=== PATIENT | female | born 1990 | race Caucasian/White ===

== ENCOUNTER → 2016-03-11 | Outpatient (CLI) | payer OTHER ==
[~2016-03-11] MED LIST: ETONMIS VAGRING; METF500T5 PO; SULF800T23 PO; VNTHFA/IN INH
--- NOTE | 2016-03-11 14:40 | DIAGNOSTIC IMAGING REPORT ---
LEFT ELBOW MIN 3 VIEWS CLINICAL HISTORY: Left elbow pain. Healing fracture. COMPARISON: Left elbow radiograph February 11, 2016 and February 19, 2016. FINDINGS: Alignment of left elbow is anatomic. A transverse band of sclerosis within the proximal left radius is consistent with a healing fracture. No additional fractures are present. There is no left elbow joint effusion. IMPRESSION: Healing nondisplaced proximal left radial fracture. No joint effusion. Electronically signed by: Eugene Morgan M.D. 03/11/2016 2:38 PM Dictated Date/Time: 03/11/2016 2:37 PM
== END | disposition home or self-care (01) ==
LOC: C.RDSM 17:09
PROVIDERS: ATTEND Physical Medicine & Rehabilitation Sports Medicine
DX: S52.102D Unspecified fracture of upper end of left radius, subsequent encounter for closed fracture with routine healing (principal); X58.XXXD Exposure to other specified factors, subsequent encounter

== ENCOUNTER → 2016-04-03 | Outpatient (CLI) | payer OTHER ==
--- NOTE | 2016-04-03 15:56 | DIAGNOSTIC IMAGING REPORT ---
LEFT ELBOW 3 VIEWS CLINICAL HISTORY: Left elbow pain. Healing fracture. FINDINGS: 3 views of the left elbow are compared to study dated 03/11/2016. The skeletal structures are well mineralized. There is only a faint band of residual sclerosis in the radial head at the site of the known healing fracture. No acute fracture is seen. No joint effusion is identified. The joint spaces are preserved. The overlying soft tissues are within normal limits. IMPRESSION: There is only faint band of residual sclerosis in the radial head at the site of the healing fracture. Electronically signed by: Freddie Coley M.D. 04/03/2016 3:55 PM Dictated Date/Time: 04/03/2016 3:53 PM
== END | disposition home or self-care (01) ==
LOC: C.RDSM 14:55
PROVIDERS: ATTEND Physical Medicine & Rehabilitation Sports Medicine
DX: S52.122D Displaced fracture of head of left radius, subsequent encounter for closed fracture with routine healing (principal); X58.XXXD Exposure to other specified factors, subsequent encounter

== ENCOUNTER → 2016-10-01 | Outpatient (CLI) | payer OTHER ==
--- NOTE | 2016-10-01 10:25 | DIAGNOSTIC IMAGING REPORT ---
LEFT ELBOW 3 VIEWS HISTORY: LEFT RADIAL HEAD FX COMPARISON: None. FINDINGS: The left radial head fracture seen on the prior study is completely healed. No acute fractures. No dislocation. No joint effusion. Soft tissues are unremarkable. No radiopaque foreign bodies. IMPRESSION: The left radial head fracture is completely healed. Electronically signed by: Carlito Campuzano M.D. 10/01/2016 10:24 AM Dictated Date/Time: 10/01/2016 10:21 AM
== END | disposition home or self-care (01) ==
LOC: C.RDSM 12:12
PROVIDERS: ATTEND Physician Assistant
DX: S52.122D Displaced fracture of head of left radius, subsequent encounter for closed fracture with routine healing (principal); X58.XXXD Exposure to other specified factors, subsequent encounter

== ENCOUNTER 2016-10-07 02:04 | Emergency (ER) | payer OTHER ==
[~2016-10-07] VITALS: Ht 170.2 cm; Wt 97.0 kg
[2016-10-07 02:07] VITALS: TEMP 36.9; O2SAT 98; Ht 170.2 cm; Wt 97.0 kg
[2016-10-07] MEDS ORDERED: LORAZEPAM 2 MG/ML 1 ML VIAL IV STA (02:27)
[2016-10-07] MEDS ORDERED: SODIUM CHLORIDE 0.9% 1000ML 1,000 ML IV ONE (02:30)
[2016-10-07] MEDS ORDERED: METF500T5 PO (02:32)
[2016-10-07] MEDS ORDERED: ETONMIS VAGRING (02:32)
[2016-10-07] MEDS ORDERED: VNTHFA/IN INH (02:32)
[2016-10-07 02:38] LABS: BASO % 0.3 %; BASO ABS # 0.04 K/uL (0-0.2); COMPLETE YES; EOS % 1.8 %; HEMATOCRIT 45.3 % (37-47); IG% 0.2 %; LYMPH % 32.3 %; LYMPH ABS # 4.14 K/uL (1.2-3.4); MEAN CELL VOLUME 87.8 fL (80-100); MEAN CORPUSCULAR HEMOGLOBIN 31.2 pg (25-34); MEAN CORPUSCULAR HGB CONC 35.5 g/dl (32-36); MEAN PLATELET VOLUME 11.1 fL (7.4-10.4); MONO % 5.9 %; NEUT % 59.5 %; PLATELET COUNT 251 K/uL (130-400); RED BLOOD COUNT 5.16 M/uL (4.2-5.4); WHITE BLOOD COUNT 12.81 K/uL (4.8-10.8)
[2016-10-07 02:44] LABS: POINT OF CARE TROPONIN I < 0.030 ng/ml (0-0.045)
[2016-10-07 02:51] LABS: BUN/CREATININE RATIO 17.1 (10-20); CALCIUM 9.4 mg/dl (8.5-10.1); CREATININE 0.83 mg/dl (0.60-1.20); MAGNESIUM 1.9 mg/dl (1.8-2.4); POTASSIUM 3.7 mmol/L (3.5-5.1)
[2016-10-07 02:54] LABS: ALB/GLOB RATIO 0.8 (0.9-2)
[2016-10-07 03:35] LABS: MANUAL MICROSCOPIC REQUIRED? NO; REVIEW REQ? NO; URINE APPEARANCE CLEAR (CLEAR); URINE BILIRUBIN NEG (NEG); URINE COLOR YELLOW; URINE EPITHELIAL CELL AUTO >30 /lpf (0-5); URINE NITRITE NEG (NEG); URINE SPECIFIC GRAVITY 1.022 (1.000-1.030); UROBILINOGEN NEG (NEG); ZZUR CULT IF INDIC CLEAN CATCH YES
[2016-10-07] MEDS ORDERED: SULF800T23 PO (04:07)
[2016-10-07 04:13] VITALS: BP 134/81; PULSE 88; O2SAT 97
--- NOTE | 2016-10-07 06:34 | EMERGENCY ROOM VISIT NOTE ---
History First contact with patient: 02:12 Chief Complaint: CHEST PAIN Stated Complaint: RIGHT SIDED CHEST PAIN Nursing Triage Summary: Patient reports right sided chest pain all day today but tonight she laid down in bed and pain got worse and was difficult to take a deep breath. Reports some shortness of breath. Hx SVT. Patient just started Nuva Ring one month ago. History of Present Illness The patient is a 26 year old female who presents to the Emergency Room with complaints of right-sided chest pain that has been ongoing for the past day. The patient states that she was getting ready for bed tonight when her discomfort worsened. She does have some difficulty with taking a deep breath and mild shortness of breath. The patient reports a history of SVT, but she has not been experiencing palpitations. She is on the NuvaRing which she began about one month ago. She may have some recent travel history, and reports no family history of DVT or PE. The patient has not had fever or chills. No coughing. She has not taken anything [id number] for her symptoms and rates her discomfort a 5/10. Review of Systems More than 10 systems were reviewed and otherwise negative with the exception of history of present illness. Past Medical/Surgical History Medical Problems: (1) GDM, class A2 (2) Right ovarian cyst (3) Term Surgical Problems: (1) S/P removal of right ovary Family History Patient reports no known family medical history. Social History Smoking Status: Never Smoker Alcohol Use: occasionally Drug Use: none Marital Status: Housing Status: lives with significant other Occupation Status: employed Current/Historical Medications Scheduled Etonogestrel/Ethinyl Estradiol (Nuvaring), 1 EA VAGRING MONTHLY Metformin Hcl Er (Glucophage Er), 500 MG PO BID Sulfa/Trimethoprim (Bactrim Ds 800MG/160MG), 1 TAB PO BID Scheduled PRN Albuterol Hfa (Ventolin Hfa), 2 PUFFS INH Q6H PRN for SOB/Wheezing Physical Exam Vital Signs Date Time Temp Pulse Resp B/P (MAP) Pulse Ox O2 Delivery O2 Flow Rate FiO2 10/07/16 04:13 88 18 134/81 97 10/07/16 03:23 98 20 139/78 97 Room Air 10/07/16 02:30 85 18 137/81 97 Room Air 10/07/16 02:25 91 10/07/16 02:24 98 Room Air 10/07/16 02:07 36.9 95 18 158/114 98 Room Air 10/07/16 02:07 98 Room Air Pain Rating (0-10): 3.0 Physical Exam VITALS: Vitals are noted on the nurse's note and reviewed by myself. Vital signs stable. GENERAL: Well-developed, well-nourished, white female who appears mildly anxious but is cooperative with the examination. EARS: External ear normal. External auditory canals clear, tympanic membranes pearly brink without erythema or effusion bilaterally. EYES: Pupils equal round and reactive to light and accommodation. Conjunctivae without injection, sclerae without icterus. Extraocular movements intact. NECK: Supple without nuchal rigidity. No lymphadenopathy. No thyromegaly. Cervical spine is nontender. HEART: Regular rate and rhythm without murmurs gallops or rubs. LUNGS: Clear to auscultation bilaterally without wheezes, rales or rhonchi. No retractions or accessory muscle use. ABDOMEN: Positive normal bowel sounds x 4. Soft with mild epigastric tenderness on palpation. No rebound or guarding. No CVA tenderness. MUSCULOSKELETAL: No muscle atrophy, erythema, or edema noted. Full range of motion without joint tenderness in all extremities. No reproducible chest wall tenderness. Medical Decision & Procedures ER Provider Diagnostic Interpretation: Preliminary Findings Only See Final Report For Complete Findings US RUQ: Hepatic steatosis. Otherwise, the liver is unremarkable. Nonobstructing calculus within the right kidney. No hydronephrosis. Gallbladder is unremarkable. Common bile duct is within normal limits measuring 2.8 mm. Laboratory Results 10/07/16 02:17 Red Blood Count 5.16, Mean Corpuscular Volume 87.8, Mean Corpuscular Hemoglobin 31.2, Mean Corpuscular Hemoglobin Concent 35.5, Mean Platelet Volume 11.1, Neutrophils (%) (Auto) 59.5, Lymphocytes (%) (Auto) 32.3, Monocytes (%) (Auto) 5.9, Eosinophils (%) (Auto) 1.8, Basophils (%) (Auto) 0.3, Neutrophils # (Auto) 7.62, Lymphocytes # (Auto) 4.14, Monocytes # (Auto) 0.76, Eosinophils # (Auto) 0.23, Basophils # (Auto) 0.04 10/07/16 02:17 Test 10/07/16 02:17 10/07/16 02:24 10/07/16 03:22 White Blood Count 12.81 K/uL (4.8-10.8) Red Blood Count 5.16 M/uL (4.2-5.4) Hemoglobin 16.1 g/dL (12.0-16.0) Hematocrit 45.3 % (37-47) Mean Corpuscular Volume 87.8 fL (80-100) Mean Corpuscular Hemoglobin 31.2 pg (25-34) Mean Corpuscular Hemoglobin Concent 35.5 g/dl (32-36) Platelet Count 251 K/uL (130-400) Mean Platelet Volume 11.1 fL (7.4-10.4) Neutrophils (%) (Auto) 59.5 % Lymphocytes (%) (Auto) 32.3 % Monocytes (%) (Auto) 5.9 % Eosinophils (%) (Auto) 1.8 % Basophils (%) (Auto) 0.3 % Neutrophils # (Auto) 7.62 K/uL (1.4-6.5) Lymphocytes # (Auto) 4.14 K/uL (1.2-3.4) Monocytes # (Auto) 0.76 K/uL (0.11-0.59) Eosinophils # (Auto) 0.23 K/uL (0-0.5) Basophils # (Auto) 0.04 K/uL (0-0.2) RDW Standard Deviation 41.0 fL (36.4-46.3) RDW Coefficient of Variation 12.8 % (11.5-14.5) Immature Granulocyte % (Auto) 0.2 % Immature Granulocyte # (Auto) 0.02 K/uL (0.00-0.02) Anion Gap 7.0 mmol/L (3-11) Est Creatinine Clear Calc Drug Dose 120.7 ml/min Estimated GFR () 111.2 Estimated GFR (Non- 96.0 BUN/Creatinine Ratio 17.1 (10-20) Calcium Level 9.4 mg/dl (8.5-10.1) Magnesium Level 1.9 mg/dl (1.8-2.4) Total Bilirubin 0.2 mg/dl (0.2-1) Aspartate Amino Transf (AST/SGOT) 13 U/L (15-37) Alanine Aminotransferase (ALT/SGPT) 29 U/L (12-78) Alkaline Phosphatase 110 U/L (45-117) Total Protein 8.0 gm/dl (6.4-8.2) Albumin 3.6 gm/dl (3.4-5.0) Globulin 4.4 gm/dl (2.5-4.0) Albumin/Globulin Ratio 0.8 (0.9-2) Lipase 221 U/L (73-393) Bedside D-Dimer 161 ng/mlFEU (0-450) Bedside Troponin I < 0.030 ng/ml (0-0.045) Urine Color YELLOW Urine Appearance CLEAR (CLEAR) Urine pH 7.0 (4.5-7.5) Urine Specific [place] 1.022 (1.000-1.030) Urine Protein NEG (NEG) Urine Glucose (UA) NEG (NEG) Urine Ketones NEG (NEG) Urine Occult Blood NEG (NEG) Urine Nitrite NEG (NEG) Urine Bilirubin NEG (NEG) Urine Urobilinogen NEG (NEG) Urine Leukocyte Esterase MODERATE (NEG) Urine WBC (Auto) 10-30 /hpf (0-5) Urine RBC (Auto) 0-4 /hpf (0-4) Urine Hyaline Casts (Auto) 1-5 /lpf (0-5) Urine Epithelial Cells (Auto) >30 /lpf (0-5) Urine Bacteria (Auto) 1+ (NEG) Urine Test NEG (NEG) Medications Administered Medications (Trade) Dose Ordered Sig/Eva Route Start Time Stop Time Status Last Admin Dose Admin Sodium Chloride 1,000 ml @ 999 mls/hr Q1H1M ONCE IV 10/07/16 02:30 10/07/16 03:30 DC 10/07/16 02:39 999 MLS/HR Lorazepam (Ativan Inj) 0.5 mg NOW STAT IV 10/07/16 02:27 10/07/16 02:29 DC 10/07/16 02:38 0.5 MG ED Course Physical exam and history were performed. Nursing notes, EMR, and Medication List were personally reviewed. Patient appears to have right-sided chest pain for the past day. The patient does not appear toxic on examination. IV access was established and labs were obtained. EKG was normal sinus rhythm at [address] elevation. Chest x- ray was performed and ultrasound was ordered. The patient was hydrated medicated as above. The patient was reevaluated multiple times throughout the course of her stay. Her blood work is as above and was reviewed. She does have a slightly elevated white blood cell count of 12,000. She is not with significant anemia, bandemia , or gross electrolyte imbalance. Lipase and transaminases are nondiagnostic. Troponin and d-dimer 1 are both negative. Chest x-ray was reviewed by myself and my attending without obvious acute process. Ultrasound was read by [facility] showing no acute process. The patient and I had a lengthy discussion regarding her workup and findings today. She does not appear to have an acute cardiopulmonary event. She felt significantly better after hydration and a small amount of Ativan. Her urine is possibly suggestive of a UTI, and she will be give a course of bactrim. She does admit that there may be a component of stress/anxiety to her symptoms. She does seem stable for discharge home, and understands the importance of following up with her primary care physician for further care and management. The patient was otherwise invited back to the ER with any new or worsening, or concerning symptoms. The chart was completed utilizing [employer] Speech Voice Recognition Software. Grammatical errors, random word insertions, pronoun errors, and incomplete sentences are an occasional consequence of this system due to software limitations, ambient noise, and hardware issues. Any formal questions or concerns about the content, text, or information contained within the body of this dictation should be directly addressed to the provider for clarification. . Medical Decision Differential diagnosis includes, but is not limited to: Myocardial infarction, dysrhythmia, pericarditis, pneumothorax, aortic aneurysm/dissection, DVT/PE, anxiety, GERD, PUD, electrolyte imbalance, thyroid disorder, pneumonia, bronchitis, pancreatitis, and others Blood Pressure Screening Blood pressure disposition: Elevated BP felt to be situational Impression Primary Impression: Right-sided chest pain Additional Impression: Urinary tract infection Departure Information Dispostion Home / Self-Care Condition GOOD Prescriptions Sulfa/Trimethoprim (Bactrim Ds 800MG/160MG) Tab 1 TAB PO BID for 7 Days, #14 TAB Prov: Javier Del Valle PA-C 10/07/16 Forms HOME CARE DOCUMENTATION FORM, Work Instructions, Additional Instructions: Patient was evaluated today in the emergency department for medical care. Return to work on 10/08/2016. Please excuse. IMPORTANT VISIT INFORMATION Patient Instructions My [facility] Additional Instructions You were seen and evaluated today on an emergency basis only. This is not a substitute for, or an effort to provide, complete comprehensive medical care. It is not possible to recognize and treat all injuries or illnesses in a single emergency department visit. For this reason it is recommended that you followup with your primary care physician next week for ongoing care and evaluation. For baseline pain relief you may alternate ibuprofen and acetaminophen every 4 hours for pain control. Take 600 mg ibuprofen (Advil) and then 4 hours later take 1000 mg acetaminophen (Tylenol). Do not take more than 3000 mg acetaminophen in a single day. Trimethoprim-Sulfamethoxazole(Bactrim DS): Take one pill twice daily for 7 days for your urine. All antibiotics can cause diarrhea. If this occurs and you feel worse or it does not resolve in 1-2 days follow up with your doctor or return to the Emergency Department as this could be signs of serious underlying problems. Any medication can cause an allergic reaction, stop the pills immediately and return to the ER for rash, hives, breathing difficulties, or swelling. You are welcome to return to the emergency department anytime with new, worsening, or concerning symptoms. Work Instructions Additional Work Instructions: Patient was evaluated today in the emergency department for medical care. Return to work on 10/08/2016. Please excuse. Problem Qualifiers
--- NOTE | 2016-10-07 06:41 | DIAGNOSTIC IMAGING REPORT ---
ABDOMINAL ULTRASOUND, RIGHT UPPER QUADRANT HISTORY: Epigastric and Right side CP. COMPARISON: CT of the abdomen and pelvis June 15, 2011. FINDINGS: Liver morphology is normal. There are no hepatic lesions. Hepatic echogenicity is mildly increased. There is no biliary ductal dilatation. No gallstones are identified. The pancreatic body is normal. The head and tail are partially obscured. Several small echogenic foci within the right renal sinus suggest calculi. These measure up to 2 mm. No right hydronephrosis is present. IMPRESSION: 1. No gallstones or biliary ductal dilatation. 2. Possible fatty infiltration of the liver. 3. Right-sided nephrolithiasis. No right hydronephrosis. Electronically signed by: Eugene Morgan M.D. 10/07/2016 6:40 AM Dictated Date/Time: 10/07/2016 6:38 AM
--- NOTE | 2016-10-07 07:09 | DIAGNOSTIC IMAGING REPORT ---
CHEST 2 VIEWS ROUTINE CLINICAL HISTORY: Right side CP dyspnea COMPARISON STUDY: 09/25/2011 FINDINGS: The bones soft tissues and hemidiaphragms are normal. The cardiomediastinal silhouette is normal. The lungs are clear. The pulmonary vasculature is normal. IMPRESSION: Negative chest. The above report was generated using voice recognition software. It may contain grammatical, syntax or spelling errors. Electronically signed by: Arias Florentino M.D. 10/07/2016 7:07 AM Dictated Date/Time: 10/07/2016 7:07 AM
== END 2016-10-07 04:16 | disposition home or self-care (01) ==
LOC: C.EDB 02:04
DX: R07.9 Chest pain, unspecified (principal); N39.0 Urinary tract infection, site not specified

== ENCOUNTER → 2016-10-13 | Outpatient (CLI) | payer OTHER | END | disposition home or self-care (01) | LOC: C.LABSPEC 16:58 → C.PATHSPEC 17:43 | PROVIDERS: ATTEND Nurse Practitioner Adult Health | DX: N20.0 Calculus of kidney (principal) ==

== ENCOUNTER → 2016-10-21 | Outpatient (CLI) | payer OTHER ==
[~2016-10-21] MED LIST changes: -SULF800T23 PO
--- NOTE | 2016-10-21 20:00 | DIAGNOSTIC IMAGING REPORT ---
KUB CLINICAL HISTORY: Nephrolithiasis. FINDINGS: 2 AP supine abdominal radiographs are compared to study dated 10/03/2014 and correlated with abdominal CT dated 06/15/2011. There is a nonobstructed abdominal bowel gas pattern. A 5 mm nonobstructing calculus projects over the lower pole of the right kidney. 2 punctate nonobstructing calculi are suggested in the left kidney. There is no radiographic evidence of ureteral stone. The bony structures appear intact. IMPRESSION: Small bilateral nonobstructing renal calculi as above. Electronically signed by: Freddie Coley M.D. 10/21/2016 7:59 PM Dictated Date/Time: 10/21/2016 7:58 PM
== END | disposition home or self-care (01) ==
LOC: C.RAD 19:15
PROVIDERS: ATTEND Nurse Practitioner Adult Health
DX: N20.0 Calculus of kidney (principal)

== ENCOUNTER → 2016-12-28 | Outpatient (CLI) | payer OTHER ==
[~2016-12-28] MED LIST changes: +GLC/500 PO; +HYDR-5688 PO; +MULT-506 PO
--- NOTE | 2016-12-28 18:00 | DIAGNOSTIC IMAGING REPORT ---
KUB CLINICAL HISTORY: N20.0 Nephrolithiasis nephrocalcinosis COMPARISON STUDY: 10/21/2016 FINDINGS: No change in a 5 mm calcification overlying lower pole right kidney. The left renal calcifications are suboptimally seen possibly due to overlying bowel content. Bowel pattern is nonobstructive. IMPRESSION: 1. Unchanged right renal lower pole calcification. 2. Punctate left renal calcifications are potentially present although partially obscured due to overlying bowel content. The above report was generated using voice recognition software. It may contain grammatical, syntax or spelling errors. Electronically signed by: Arias Florentino M.D. 12/28/2016 5:58 PM Dictated Date/Time: 12/28/2016 5:57 PM
[2016-12-28 18:01] LABS: BASO % 0.3 %; BASO ABS # 0.04 K/uL (0-0.2); COMPLETE YES; EOS % 1.4 %; HEMATOCRIT 44.5 % (37-47); IG% 0.2 %; LYMPH % 29.3 %; LYMPH ABS # 3.52 K/uL (1.2-3.4); MEAN CELL VOLUME 87.8 fL (80-100); MEAN CORPUSCULAR HEMOGLOBIN 30.4 pg (25-34); MEAN CORPUSCULAR HGB CONC 34.6 g/dl (32-36); MEAN PLATELET VOLUME 11.1 fL (7.4-10.4); NEUT % 60.8 %; PLATELET COUNT 240 K/uL (130-400); RED BLOOD COUNT 5.07 M/uL (4.2-5.4); WHITE BLOOD COUNT 12.01 K/uL (4.8-10.8)
[2016-12-28 18:08] LABS: URINE APPEARANCE CLEAR (CLEAR); URINE BILIRUBIN NEG (NEG); URINE COLOR YELLOW; URINE EPITHELIAL CELL AUTO >30 /lpf (0-5); URINE NITRITE NEG (NEG); URINE SPECIFIC GRAVITY 1.027 (1.000-1.030); UROBILINOGEN NEG (NEG)
[2016-12-28 18:09] LABS: MANUAL MICROSCOPIC REQUIRED? NO; REVIEW REQ? NO
[2016-12-28 18:31] LABS: BLOOD UREA NITROGEN 13 mg/dl (7-18); BUN/CREATININE RATIO 16.8 (10-20); CARBON DIOXIDE 26 mmol/L (21-32); CHLORIDE 108 mmol/L (98-107); CREATININE 0.76 mg/dl (0.60-1.20); POTASSIUM 3.6 mmol/L (3.5-5.1); SODIUM 140 mmol/L (136-145)
== END | disposition home or self-care (01) ==
LOC: C.LAB 17:13
PROVIDERS: ATTEND Nurse Practitioner Adult Health
DX: N20.0 Calculus of kidney (principal)

== ENCOUNTER → 2017-01-11 | Outpatient (CLI) | payer OTHER ==
[~2017-01-11] MED LIST changes: -METF500T5 PO
--- NOTE | 2017-01-11 15:18 | DIAGNOSTIC IMAGING REPORT ---
KUB HISTORY: Follow-up study in a patient with nephrolithiasis. Status post lithotripsy N20.0 NephrolithiasisTO BE DONE THE NIGHT BEFORE OR MORNING OF P COMPARISON: KUB 12/28/2016. FINDINGS: The bowel gas pattern is non-obstructive. There is no organomegaly. Right kidney is obscured by colonic stool. The previously noted calculus in the region of the right kidney however is again seen, 3 mm. No ureteral calculi identified. No definite left-sided nephrolithiasis. No pneumoperitoneum or pneumatosis. No fracture. IMPRESSION: Right renal shadow obscured by bowel gas. 3 mm calculus projects over the right kidney. No ureteral calculi. Electronically signed by: Rock Oneill M.D. 01/11/2017 3:17 PM Dictated Date/Time: 01/11/2017 3:04 PM
== END | disposition home or self-care (01) ==
LOC: C.RAD 14:38
PROVIDERS: ATTEND Nurse Practitioner Adult Health
DX: N20.0 Calculus of kidney (principal)

== ENCOUNTER 2017-03-09 22:38 | Emergency (ER) | payer OTHER ==
[~2017-03-09] VITALS: Ht 170.2 cm; Wt 96.0 kg
[2017-03-09 22:45] VITALS: TEMP 36.5; Ht 170.2 cm; Wt 96.0 kg
[2017-03-09] MEDS ORDERED: SODIUM CHLORIDE 0.9% 1000ML 1,000 ML IV STA (23:03)
[2017-03-09 23:10] VITALS: O2SAT 98
[2017-03-09 23:52] LABS: BASO % 0.3 %; BASO ABS # 0.03 K/uL (0-0.2); EOS % 1.9 %; HEMATOCRIT 44.4 % (37-47); HEMOGLOBIN 15.4 g/dL (12.0-16.0); IG# 0.02 K/uL (0.00-0.02); LYMPH % 33.9 %; LYMPH ABS # 3.51 K/uL (1.2-3.4); MEAN CELL VOLUME 87.7 fL (80-100); MEAN CORPUSCULAR HEMOGLOBIN 30.4 pg (25-34); MEAN CORPUSCULAR HGB CONC 34.7 g/dl (32-36); MEAN PLATELET VOLUME 11.1 fL (7.4-10.4); MONO % 8.4 %; MONO ABS # 0.87 K/uL (0.11-0.59); NEUT % 55.3 %; NEUT ABS # 5.73 K/uL (1.4-6.5); PLATELET COUNT 231 K/uL (130-400); RED CELL DISTRIBUTION WIDTH CV 12.8 % (11.5-14.5); RED CELL DISTRIBUTION WIDTH SD 40.9 fL (36.4-46.3); WHITE BLOOD COUNT 10.36 K/uL (4.8-10.8)
[2017-03-10 00:15] LABS: ALBUMIN 3.7 gm/dl (3.4-5.0); ALT/SGPT 37 U/L (12-78); AST/SGOT 18 U/L (15-37); BLOOD UREA NITROGEN 13 mg/dl (7-18); CALCIUM 8.9 mg/dl (8.5-10.1); CARBON DIOXIDE 26 mmol/L (21-32); CREATININE 0.82 mg/dl (0.60-1.20); GLUCOSE 89 mg/dl (70-99); POTASSIUM 3.7 mmol/L (3.5-5.1); SODIUM 139 mmol/L (136-145)
[2017-03-10 00:26] LABS: ALKALINE PHOSPHATASE 114 U/L (45-117); TOTAL PROTEIN 7.7 gm/dl (6.4-8.2)
--- NOTE | 2017-03-10 00:56 | EMERGENCY ROOM VISIT NOTE ---
History First contact with patient: 22:51 Chief Complaint: TACHYCARDIA Stated Complaint: SVT Nursing Triage Summary: pt hx SVT, pulse at 186 with initial symptom onset. Pt states sitting down and felt "heart beating in my throat," dizzy nauseated, near syncope. Pt states onset of symptoms within 5 minutes of alerting staff. History of Present Illness The patient is a 26 year old female who presents to the Emergency Room with complaints of tachycardia that lasted 5-10 minutes and now has resolved. Patient has a history of SVT. She tried vagal maneuvers and finally resolved the tachycardia. Her heart rate was up to 185. This is taken by our nurse here. 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 She follows with Dr. Gomez. Last episode was a couple months ago when she had an asthma flare. She quit taking her beta diamond a few years ago as she did not like the way made her feel fatigued. Patient states she feels lightheaded and shaky. Patient denies chest pain, dyspnea, fever, chills, recent illness, excessive caffeine use, supplements or any other medications taken today or any other medical complaints. Review of Systems See HPI for pertinent positives & negatives. A total of 10 systems reviewed and were otherwise negative. Past Medical/Surgical History Medical Problems: (1) GDM, class A2 (2) Right ovarian cyst (3) Term Surgical Problems: (1) S/P removal of right ovary Family History Patient reports no known family medical history. Social History Smoking Status: Never Smoker Smokeless Tobacco Use: No Alcohol Use: occasionally Drug Use: none Marital Status: Housing Status: lives with significant other Occupation Status: employed Current/Historical Medications Scheduled Etonogestrel/Ethinyl Estradiol (Nuvaring), 1 EA VAGRING MONTHLY Multivitamin (Multivitamin), 1 TAB PO QAM Scheduled PRN Albuterol Hfa (Ventolin Hfa), 2 PUFFS INH Q6H PRN for SOB/Wheezing Physical Exam Vital Signs Date Time Temp Pulse Resp B/P (MAP) Pulse Ox O2 Delivery O2 Flow Rate FiO2 03/09/17 23:10 98 Room Air 03/09/17 22:48 97 03/09/17 22:47 99 Room Air 03/09/17 22:47 98 Room Air 03/09/17 22:45 36.5 111 15 150/102 99 Room Air Physical Exam VITALS: Vitals are noted on the nurse's note and reviewed by myself. Vital signs hypertensive GENERAL: Pleasant female anxious-appearing, in no acute distress, nondiaphoretic , well-developed well-nourished. SKIN: The skin was without rashes, erythema, edema, or bruising. There is no tenting of the skin. Capillary reflex less than 2 seconds. HEAD: Normocephalic atraumatic. EARS: External auditory canals clear EYES: Pupils equal round and reactive to light and accommodation. Conjunctivae without injection, sclerae without icterus. Extraocular movements intact. NOSE: Patent, turbinates without inflammation or discharge. MOUTH: Mucous membranes moist. Pharynx without erythema or exudate. Uvula midline. Airway patent. Tongue does not deviate. NECK: Supple without nuchal rigidity. No lymphadenopathy. No thyromegaly. Cervical spine is nontender. No JVD. HEART: Regular rate and rhythm without murmurs gallops or rubs. LUNGS: Clear to auscultation bilaterally without wheezes, rales or rhonchi. No dullness to percussion. No retractions or accessory muscle use. ABDOMEN: Positive bowel sounds x 4. Normal tympanic percussion. Soft, nontender, without masses or organomegaly. Cruz sign negative. No guarding or rebound tenderness. MUSCULOSKELETAL: No muscle atrophy, erythema, or edema noted. NEURO: Patient was alert and oriented to person place and time. Normal sensation to light and sharp touch. No focal neurological deficits. Medical Decision & Procedures Laboratory Results 03/09/17 23:39 Red Blood Count 5.06, Mean Corpuscular Volume 87.7, Mean Corpuscular Hemoglobin 30.4, Mean Corpuscular Hemoglobin Concent 34.7, Mean Platelet Volume 11.1, Neutrophils (%) (Auto) 55.3, Lymphocytes (%) (Auto) 33.9, Monocytes (%) (Auto) 8.4, Eosinophils (%) (Auto) 1.9, Basophils (%) (Auto) 0.3, Neutrophils # (Auto) 5.73, Lymphocytes # (Auto) 3.51, Monocytes # (Auto) 0.87, Eosinophils # (Auto) 0.20, Basophils # (Auto) 0.03 03/09/17 23:39 Test 03/09/17 23:39 White Blood Count 10.36 K/uL (4.8-10.8) Red Blood Count 5.06 M/uL (4.2-5.4) Hemoglobin 15.4 g/dL (12.0-16.0) Hematocrit 44.4 % (37-47) Mean Corpuscular Volume 87.7 fL (80-100) Mean Corpuscular Hemoglobin 30.4 pg (25-34) Mean Corpuscular Hemoglobin Concent 34.7 g/dl (32-36) Platelet Count 231 K/uL (130-400) Mean Platelet Volume 11.1 fL (7.4-10.4) Neutrophils (%) (Auto) 55.3 % Lymphocytes (%) (Auto) 33.9 % Monocytes (%) (Auto) 8.4 % Eosinophils (%) (Auto) 1.9 % Basophils (%) (Auto) 0.3 % Neutrophils # (Auto) 5.73 K/uL (1.4-6.5) Lymphocytes # (Auto) 3.51 K/uL (1.2-3.4) Monocytes # (Auto) 0.87 K/uL (0.11-0.59) Eosinophils # (Auto) 0.20 K/uL (0-0.5) Basophils # (Auto) 0.03 K/uL (0-0.2) RDW Standard Deviation 40.9 fL (36.4-46.3) RDW Coefficient of Variation 12.8 % (11.5-14.5) Immature Granulocyte % (Auto) 0.2 % Immature Granulocyte # (Auto) 0.02 K/uL (0.00-0.02) Anion Gap 7.0 mmol/L (3-11) Est Creatinine Clear Calc Drug Dose 121.5 ml/min Estimated GFR () 112.9 Estimated GFR (Non- 97.4 BUN/Creatinine Ratio 15.3 (10-20) Calcium Level 8.9 mg/dl (8.5-10.1) Magnesium Level 2.1 mg/dl (1.8-2.4) Total Bilirubin 0.3 mg/dl (0.2-1) Direct Bilirubin < 0.1 mg/dl (0-0.2) Aspartate Amino Transf (AST/SGOT) 18 U/L (15-37) Alanine Aminotransferase (ALT/SGPT) 37 U/L (12-78) Alkaline Phosphatase 114 U/L (45-117) Total Protein 7.7 gm/dl (6.4-8.2) Albumin 3.7 gm/dl (3.4-5.0) Thyroid Stimulating Hormone (TSH) 2.280 uIu/ml (0.300-4.500) Human Chorionic Gonadotropin, Qual NEG (NEG) Medications Administered Medications (Trade) Dose Ordered Sig/Eva Route Start Time Stop Time Status Last Admin Dose Admin Sodium Chloride 1,000 ml @ 999 mls/hr Q1H1M STAT IV 03/09/17 23:03 03/10/17 00:03 DC 03/09/17 23:21 999 MLS/HR ED Course Prior records/ancillary studies reviewed. Triage Nursing notes reviewed. The patient's history was concerning for palpitations. Differential diagnosis: Etiologies such as premature contractions, electrolyte abnormality, cardiac dysrhythmia, thyroid dysfunction, pulmonary embolism, infection, gastrointestinal, as well as others were entertained. Physical examination: Benign as above. ER treatment provided: IV fluids On reassessment the patient felt better. Diagnostic interpretation by me: Cardiac monitoring revealed no dysrhythmia. The electrocardiogram was negative for pathologic change. Normal sinus, normal intervals, no acute ST-T wave changes. Impression sinus tachycardia interpreted by myself The labs revealed euthyroid, stable H&H This appears to be consistent with SVT that broke on her own. Patient has a history of this. No new medications. No stimulants. She is well-appearing. She is advised to follow-up with her controller operations and hr manager in a few days or here in the ER sooner for chest pain, difficulty breathing, tachycardia, worsening signs or symptoms or as needed. She was shown vagal maneuvers and advised to try this if her symptoms return in the future and if it does not break to return to the ER immediately. By the evaluation outlined above emergent etiologies such as electrolyte abnormality, cardiac dysrhythmia, thyroid dysfunction, pulmonary embolism, infection, as well as others were deemed relatively unlikely. The pt informed about the findings as listed above. All questions were answered and pleased with the treatment. Return instructions were outlined and the patient was discharged in stable condition. Case reviewed with my attending Referral: The patient was referred back to their primary care physician/etiology for follow-up in 2 to 3 days for a recheck of the current condition The chart was completed utilizing Dragon Speech voice recognition software. Grammatical errors, random word insertions, pronoun errors, and incomplete sentences are an occassional consequence of this system due to software limitations, ambient noise, and hardware issues. Any formal questions or concerns about the content, text, or information contained within the body of this dictation should be directly addressed to the physician hair or beauty salon assistant for clarification. Medical Decision As above Medication Reconcilliation Current Medication List: was personally reviewed by me Blood Pressure Screening Patient's blood pressure: Elevated blood pressure Blood pressure disposition: Elevated BP felt to be situational Impression Primary Impression: SVT (supraventricular tachycardia) Departure Information Dispostion Home / Self-Care Condition GOOD Referrals Jennifer Tsai DO (PCP) Patient Instructions My [facility] Additional Instructions Try vagal maneuvers in the future if your SVT returns. You can try blowing through a straw or lifting up her legs and bearing down as shown in the ER. You can also continue to try coughing. Rest and drink plenty of fluids as tolerated. Continue current medications. Return to the ER immediately for worsening or persistent tachycardia, abdominal pain, vomiting, fevers, chest pains, difficulty breathing, worsening of your condition, or as needed. Follow up with your primary physician and/or controller operations and hr manager in 2-3 days for a recheck of your current condition.
[2017-03-10] MEDS ORDERED: ATIVAN 1MG HOMEPACK PO ONE (01:00)
[2017-03-10 01:01] VITALS: BP 143/91
[2017-03-10 01:08] VITALS: PULSE 99; O2SAT 97
--- NOTE | 2017-03-10 02:03 | EMERGENCY ROOM VISIT NOTE ---
ED Visit Note First contact with patient: 22:51 I have personally evaluated this patient examined her and reviewed the pertinent labs and data. I have discussed the case with Michelle Beckett, the physician assistant store manager trainee and agree with the plan. Please refer to the PA note. This patient works here and presented after she had a fast heart ra.te she was very fast initially but by the time she got back to triage did slow down after doing vagal maneuvers. She apparently has a history of PSVT that it occurs with stress she says.. She gets about 10 times a year upon my evaluation she is resting comfortably in a normal sinus rhythm her lab work was unremarkable. I encouraged her to follow up with her lithograph press feeder she may ultimately need to be seen by maintenance planner this persists typically she breaks out of it btu has never required any adenosine or medications. She is feeling better and will be discharged to home.
== END 2017-03-10 01:12 | disposition home or self-care (01) ==
LOC: EDBD 22:38 → C.EDA 22:39
DX: I47.1 Supraventricular tachycardia (principal); Z86.32 Personal history of gestational diabetes; Z90.721 Acquired absence of ovaries, unilateral

== ENCOUNTER 2017-03-23 00:21 | Emergency (ER) | payer OTHER ==
[~2017-03-23] VITALS: Ht 170.2 cm; Wt 96.2 kg
[~2017-03-23 00:21] MED LIST changes: -GLC/500 PO; -HYDR-5688 PO
[2017-03-23 00:25] VITALS: TEMP 36.8; Ht 170.2 cm; Wt 96.2 kg
[2017-03-23] MEDS ORDERED: KETOROLAC TROMETHAMINE 30 MG/ML VIAL IV STA (00:37)
[2017-03-23] MEDS ORDERED: LXP10 PO (00:40)
--- NOTE | 2017-03-23 00:48 | EMERGENCY ROOM VISIT NOTE ---
History Report prepared by Inderjit: Crista Rowe Under the Supervision of: Dr. Heather Keane M.D. 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 She states that her hand got numb and then all of a sudden, she felt a "sharp pain in the center of her chest," however the pain has alleviated and is currently mild. Associated symptoms include nausea and SOB. She denies any chance of , vomiting, and flu symptoms but notes she had a slight asthma attack. The patient states that her heart rate has felt very fast the past couple of days. 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 A total of 10 systems reviewed and were otherwise negative. Past Medical & Surgical Medical Problems: (1) GDM, class A2 (2) Right ovarian cyst (3) Term Surgical Problems: (1) S/P removal of right ovary Family History Patient reports no known family medical history. Social History Smoking Status: Never Smoker Alcohol Use: occasionally Drug Use: none Marital Status: Housing Status: lives with significant other Occupation Status: employed Current/Historical Medications Scheduled Escitalopram Oxalate (Escitalopram Oxalate), 10 MG PO DAILY Etonogestrel/Ethinyl Estradiol (Nuvaring), 1 EA VAGRING MONTHLY Multivitamin (Multivitamin), 1 TAB PO QAM Scheduled PRN Albuterol Hfa (Ventolin Hfa), 2 PUFFS INH Q6H PRN for SOB/Wheezing Allergies Coded Allergies: Adhesives (Verified Allergy, Mild, HIVES, 03/23/17) Kiwi (Verified Allergy, Mild, tongue feels thick and hairy, 03/23/17) NO KNOWN DRUG ALLERGIES (Verified Allergy, Unknown, ., 03/23/17) Physical Exam Vital Signs Date Time Temp Pulse Resp B/P (MAP) Pulse Ox O2 Delivery O2 Flow Rate FiO2 03/23/17 00:55 98 22 147/90 99 Room Air 03/23/17 00:42 92 03/23/17 00:42 100 Room Air 03/23/17 00:25 36.8 101 18 160/86 99 Room Air Physical Exam Vital signs reviewed. General: Well-appearing female, in no significant distress. Anxious appearing HEENT: No scleral icterus, PERRLA, neck supple. Atraumatic. Cardiovascular: Regular rate, Slightly tachycardic, no extra sounds. Pulmonary: Clear to auscultation bilaterally, normal work of breathing. Abdomen: Soft, nontender, nondistended, positive bowel sounds. Musculoskeletal: Atraumatic, no peripheral edema. Neurologic: Patient awake alert and oriented x 3, full strength in all 4 extremities. Cranial nerves 2 through 12 grossly intact. Skin: Warm, dry, no rash Medical Decision & Procedures ER Provider Diagnostic Interpretation: Chest x-ray to my interpretation reveals no evidence of focal lung consolidation or failure. Laboratory Results 03/23/17 00:40 Red Blood Count 5.00, Mean Corpuscular Volume 86.6, Mean Corpuscular Hemoglobin 30.4, Mean Corpuscular Hemoglobin Concent 35.1, Mean Platelet Volume 11.0, Neutrophils (%) (Auto) 57.3, Lymphocytes (%) (Auto) 34.4, Monocytes (%) (Auto) 6.4, Eosinophils (%) (Auto) 1.5, Basophils (%) (Auto) 0.2, Neutrophils # (Auto) 6.94, Lymphocytes # (Auto) 4.16, Monocytes # (Auto) 0.78, Eosinophils # (Auto) 0.18, Basophils # (Auto) 0.03 03/23/17 00:40 Test 03/23/17 00:40 03/23/17 00:46 White Blood Count 12.11 K/uL (4.8-10.8) Red Blood Count 5.00 M/uL (4.2-5.4) Hemoglobin 15.2 g/dL (12.0-16.0) Hematocrit 43.3 % (37-47) Mean Corpuscular Volume 86.6 fL (80-100) Mean Corpuscular Hemoglobin 30.4 pg (25-34) Mean Corpuscular Hemoglobin Concent 35.1 g/dl (32-36) Platelet Count 208 K/uL (130-400) Mean Platelet Volume 11.0 fL (7.4-10.4) Neutrophils (%) (Auto) 57.3 % Lymphocytes (%) (Auto) 34.4 % Monocytes (%) (Auto) 6.4 % Eosinophils (%) (Auto) 1.5 % Basophils (%) (Auto) 0.2 % Neutrophils # (Auto) 6.94 K/uL (1.4-6.5) Lymphocytes # (Auto) 4.16 K/uL (1.2-3.4) Monocytes # (Auto) 0.78 K/uL (0.11-0.59) Eosinophils # (Auto) 0.18 K/uL (0-0.5) Basophils # (Auto) 0.03 K/uL (0-0.2) RDW Standard Deviation 40.1 fL (36.4-46.3) RDW Coefficient of Variation 12.6 % (11.5-14.5) Immature Granulocyte % (Auto) 0.2 % Immature Granulocyte # (Auto) 0.02 K/uL (0.00-0.02) Anion Gap 9.0 mmol/L (3-11) Est Creatinine Clear Calc Drug Dose 127.9 ml/min Estimated GFR () 119.9 Estimated GFR (Non- 103.5 BUN/Creatinine Ratio 20.9 (10-20) Calcium Level 8.9 mg/dl (8.5-10.1) Bedside D-Dimer 234 ng/mlFEU (0-450) Bedside Troponin I < 0.030 ng/ml (0-0.045) Laboratory results per my review. Medications Administered Medications (Trade) Dose Ordered Sig/Eva Route Start Time Stop Time Status Last Admin Dose Admin Ketorolac Tromethamine (Toradol Inj) 30 mg NOW STAT IV 03/23/17 00:37 03/23/17 00:40 DC 03/23/17 00:51 30 MG ECG Indication: chest pain Rate (beats per minute): 97 Rhythm: normal sinus Findings: no acute ischemic change, no ectopy, other (sinus erythema, possible left atrial enlargement ) ED Course 0050: Past medical records reviewed. The patient was evaluated in room B2. A complete history and physical examination was performed. Medical Decision Differential diagnosis: Etiologies such as cardiac ischemia, aortic dissection, pulmonary embolism, pneumonia, pneumothorax, musculoskeletal, infections, pericarditis, myocarditis , esophageal rupture, gastrointestinal, as well as others were entertained. This patient was evaluated and appeared to be in no significant distress. IV access was obtained and laboratory work was drawn. The patient was placed on the prepared foods team leader and found to be in a normal sinus rhythm. She does occasionally, slightly tachycardic in a sinus rhythm. EKG reveals no evidence of acute ischemia or ectopy. Patient's troponin is negative, d-dimer is normal. Chest x-ray to my interpretation is clear. I suspect this is a noncardiac type chest pain. The patient was reassured and asked to use ibuprofen as needed for pain. She'll follow-up with her physician this week for reevaluation and return to the ER for worsening of symptoms or any medical concerns. Medication Reconcilliation Current Medication List: was personally reviewed by me Blood Pressure Screening Patient's blood pressure: Elevated blood pressure Blood pressure disposition: Elevated BP felt to be situational Impression Primary Impression: Non-cardiac chest pain Scribe Attestation The scribe's documentation has been prepared under my direction and personally reviewed by me in its entirety. I confirm that the note above accurately reflects all work, treatment, procedures, and medical decision making performed by me. Departure Information Referrals Jennifer Tsai DO (PCP) Patient Instructions My [facility]
[2017-03-23 00:51] LABS: BASO % 0.2 %; BASO ABS # 0.03 K/uL (0-0.2); EOS % 1.5 %; EOS ABS # 0.18 K/uL (0-0.5); HEMATOCRIT 43.3 % (37-47); HEMOGLOBIN 15.2 g/dL (12.0-16.0); IG# 0.02 K/uL (0.00-0.02); LYMPH % 34.4 %; LYMPH ABS # 4.16 K/uL (1.2-3.4); MEAN CELL VOLUME 86.6 fL (80-100); MEAN CORPUSCULAR HEMOGLOBIN 30.4 pg (25-34); MEAN CORPUSCULAR HGB CONC 35.1 g/dl (32-36); MONO % 6.4 %; MONO ABS # 0.78 K/uL (0.11-0.59); NEUT % 57.3 %; NEUT ABS # 6.94 K/uL (1.4-6.5); PLATELET COUNT 208 K/uL (130-400); RED CELL DISTRIBUTION WIDTH CV 12.6 % (11.5-14.5); RED CELL DISTRIBUTION WIDTH SD 40.1 fL (36.4-46.3); WHITE BLOOD COUNT 12.11 K/uL (4.8-10.8)
[2017-03-23 01:09] LABS: CALCIUM 8.9 mg/dl (8.5-10.1); CREATININE 0.78 mg/dl (0.60-1.20); POTASSIUM 3.3 mmol/L (3.5-5.1)
[2017-03-23 01:31] VITALS: BP 131/97; PULSE 80; O2SAT 99
--- NOTE | 2017-03-23 08:13 | DIAGNOSTIC IMAGING REPORT ---
CHEST ONE VIEW PORTABLE HISTORY: Atypical chest pain. Short of breath. COMPARISON: Chest 10/07/2016. FINDINGS: The lungs are clear. Cardiac silhouette is normal in size. No pleural effusions. No pneumothorax. IMPRESSION: No acute process. Electronically signed by: Carlito Campuzano M.D. 03/23/2017 8:12 AM Dictated Date/Time: 03/23/2017 8:11 AM
== END 2017-03-23 01:37 | disposition home or self-care (01) ==
LOC: C.EDB 00:22
DX: R07.89 Other chest pain (principal); Z97.5 Presence of (intrauterine) contraceptive device

== ENCOUNTER → 2017-04-28 | Day surgery (SDC) | payer OTHER ==
[2017-04-08 08:51] VITALS: BMI 33.0
[~2017-04-28] VITALS: Ht 170.2 cm; Wt 95.0 kg
[~2017-04-28] MED LIST changes: +ACETAMINOPHEN 325 MG TAB PO PRN; +CHOL1000 PO; +FENTANYL CITRATE INJ 50 MCG/1 ML 2 ML VIAL ONE; +ISOPROTERENOL IV ONE; +LIDOCAINE HCL 1% 20 ML VIAL ONE; +LXP10 PO; +MIDAZOLAM HCL 5 MG/ML 1 ML VIAL ONE
[2017-04-28 12:18] VITALS: BP 121/86; PULSE 80; TEMP 36.5; O2SAT 98; Ht 170.2 cm; Wt 95.0 kg
--- NOTE | 2017-04-28 13:56 | History & Physical Bridge Note ---
H&P Re-Evaluation Bridge Note: I have examined the patient, reviewed the History & Physical and in the interval since the performance of the History & Physical I have noted the following changes of clinical significance: No changes noted
--- NOTE | 2017-04-28 13:56 | Pre Sedation Assessment ---
Pre Sedation Assessment General Date of Sedation: Apr 28, 2017. Vital Signs Past 12 Hours Date Time Temp Pulse Resp B/P (MAP) Pulse Ox O2 Delivery O2 Flow Rate FiO2 04/28/17 12:18 36.5 80 18 121/86 (98) 98 Room Air Review Cardiovascular: regular rate, rhythm Lungs: lungs clear Pre-Sedation Airway Assessment Smoking Status: Never Smoker Hx of Sleep Apnea: No Short Thick Neck: No Thyro-mental Distance: > 3 Finger Breadths Oral Cavity: WNL Mallampati Classification: Class I ASA Classification: Class I NPO Status Date of Last Intake of Fluids: Apr 27, 2017 Date of Last Intake of Solids: Apr 27, 2017 Procedure Planning Contraindications for Sedation: None Current Medications Reviewed: Yes Notes The planned sedation has been discussed with the patient. Informed Consent was obtained. I have identified the patient, determined the appropriateness of sedation and have assessed the patient immediately prior to the procedure. All medicine(s) and interventions are by my order.
--- NOTE | 2017-04-28 16:35 | Post Sedation Assessment ---
Post Sedation Assessment General Date of Sedation Apr 28, 2017. Vital Signs: Vital Signs Past 12 Hours Date Time Temp Pulse Resp B/P (MAP) Pulse Ox O2 Delivery O2 Flow Rate FiO2 04/28/17 16:25 99 16 133/84 (100) 97 Room Air 04/28/17 16:20 103 16 138/91 (107) 96 Room Air 04/28/17 16:15 105 16 139/91 (107) 100 Mask 6 04/28/17 16:10 112 16 148/95 (112) 100 Mask 6 04/28/17 12:18 36.5 80 18 121/86 (98) 98 Room Air Post Procedure Recovery Score Activity: (2) Moves 4 extremities * Respiration: (2) Deep breath/cough Circulation: (2) +/-20% PreAnes Value Consciousness: (2) Fully Awake Oxygen Saturation: (2) > 92% On Room Air Post Anesthesia Score: 10 Discharge Sedation Level of Care: Fast Track Phase II Post Sedation Plan On clinical assessment, the patient appears to have tolerated the sedation without complications. Patient is recovering as anticipated. Patient will continue to be monitored by nursing and may be discharged when sedation discharge criteria are met per below protocol. Upon Completions of procedure and additional 15 minutes continue every 5 minute vital signs and the P.A.R. score; then discharge to a Phase I or Fast Track to Phase II per the following guidelines: * Discharge Patient to appropriate Phase II area if PAR is 8 or greater or return to pre- procedure baseline. The post - procedure orders will be as directed. * If PAR score is less than 8 or not return to pre-procedure baseline then patient will follow Phase I monitoring till PAR is reached for Phase II. The Phase I may be done in procedure room or may call to secure a Phase I area. * If naloxone or flumazenil are used for reversal, hold in Phase I for an additional 60 -120 minutes before discharge to Phase II. Please call the Sedation Physician to re-evaluate and complete post-note for discharge to Phase II area. Do NOT discharge from procedure sedation or Phase 1 until post- sedation evaluation note is complete by procedure /sedation MD Sedation Discharge Instructions to be given to the patient at discharge to home.
--- NOTE | 2017-04-28 16:36 | [facility] Post Operative Brief Note ---
Immediate Operative Summary Operative Date Apr 28, 2017. 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
--- NOTE | 2017-04-28 16:38 | Discharge Instructions ---
Discharge Instructions Date of Service Apr 28, 2017. Visit Reason for Visit: Supraventricular Tachycardia Discharge Discharge Diagnosis / Problem: palpitations Discharge Goals Goal(s): Improve function Activity Recommendations Activity Limitations: as noted below (no heavy lifting or squating for 1 week) Shower/Bathe: tomorrow Driving or Machine Use: no limitations Anesthesia . ACTIVITY RECOMMENDATIONS: It is common to feel weak and fatigue for a few days. * Do not drive or operate any motorized equipment for the next 1 day. * Limit stair usage (2 or 3 trips a day only) for the next three days. * Do not lift anything heavier than 10 pounds for the next three days. * Do not engage in vigorous exercise or any sports for the next five days. * You may shower the day after your procedure, but do not immerse the area for three days. Cleanse the site gently with soap and water. SPECIAL CARE INSTRUCTIONS: * You may replace the pressure dressing or band-aid the morning after the procedure. * After your procedure, it is normal to have a small bruise or small lump at the site. Examine your site daily for any change in the bruise or lump, redness, swelling, drainage or numbness. Notify your doctor if any change. BLEEDING: * If there is a small amount of bleeding at the site, lie down and apply firm pressure with a clean cloth for ten minutes. When the bleeding stops, lie quietly keeping the procedure limb straight for six hours. Notify your doctor as soon as possible. * If the bleeding does not stop after ten minutes or if there is a large amount of bleeding or spurting, call 911 immediately. Continue to lie down and hold firm pressure until help arrives. SKIN IRRITATION: * You may experience some redness and/or swelling in the area where radiation was administered. If any skin irritation occurs, please contact your family physician. FOLLOW UP VISIT: Keep any scheduled doctor appointments. Diet Recommendations Recommended Home Diet: resume previous diet Procedures Procedures Performed: EPS, isoprel infusion, C/S insertion and pacing Pending Studies Studies pending at discharge: no Medical Emergencies . Who to Call and When: Medical Emergencies: If at any time you feel your situation is an emergency, please call 911 immediately. . Non-Emergent Contact Non-Emergency issues call your: Pipe Insulator Helper . . "Provider Documentation" section prepared by Atiya Martin. .
[2017-04-28 18:15] VITALS: BP 128/84; PULSE 82; O2SAT 96
--- NOTE | 2017-04-28 19:09 | OPERATIVE REPORT ---
DATE OF OPERATION: 04/28/2017 PREOPERATIVE DIAGNOSIS: Palpitations, suspected supraventricular tachycardia. POSTOPERATIVE DIAGNOSIS: Same. PROCEDURE PERFORMED: Electrophysiology study, isuprel drug infusion challenge, coronary sinus insertion with coronary sinus pacing. SURGEON: Dr. Atiya Martin. DIRECTOR MICROBIOLOGY: None. ANESTHESIA: Monitored anesthetic care administered under my supervision by Keisha Zamora. Start time 14:40 and end time 16:10, a total of 8 mg of Versed, 200 mcg of fentanyl. INTRAVENOUS FLUIDS: 400 mL. BLOOD LOSS: Less than 5 mL. COMPLICATIONS: None. CONDITION: Stable. URINE OUTPUT: Not applicable. SPECIMENS: None. FINDINGS: See below. DRAINS: None. 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 She has a history of migraines, exercise-induced asthma and anxiety. Due to the degree of her palpitations and the prominence of them and pounding, it was recommended an EP study with possible ablation. CONSENT: Consent was obtained prior to the patient going into electrophysiology lab. The patient was informed of the with risks, benefits, alternatives of procedure, risks include but not limited to sudden cardiac , cardiac arrhythmias, cerebrovascular accident, myocardial infarction, injury to the blood vessels, chamber of the heart or the [place] electrical system where she would need a permanent pacemaker, bleeding and infection. The patient understood these risks and agreed to undergo the procedure as planned. Informed consent has been obtained. DESCRIPTION OF PROCEDURE: The patient was brought into the electrophysiology lab in a fasting state. She was connected to continuous glass ribbon machine operator. She was prepped and draped over the bilateral groins in normal surgical standard fashion. Moderate conscious sedation was given throughout the procedure for patient's comfort level. [place] precautions were maintained throughout the procedure. Using 10 mL of 1% lidocaine was given over the bilateral groins for local anesthesia. Then using the ultrasound guidance, a venous access was obtained via the modified Seldinger technique in the following manner. The left femoral vein had a 6-Luxembourger sheath followed by a Bj quadripolar catheter positioned into the right ventricular apex. A 7-Luxembourger sheath followed by a hisser quadripolar catheter positioned over the His bundle region. A 7-Luxembourger sheath followed by a [employer] Powerense DF curved Decapolar coronary sinus catheter positioned down the coronary sinus. The right femoral vein had a 6-Luxembourger sheath, followed by a Bj quadripolar catheter positioned in the high rate atrium. Electrophysiology study was performed with the following findings: 1. Baseline intervals. 2. VA 148 milliseconds, QRS 88 milliseconds, QT 388 milliseconds, sinus cycle length 738 milliseconds, AH 96 milliseconds, HV 40 milliseconds. 3. The AV Wenckebach was 350 milliseconds. 4. AV node ERP was 600/290 and 400/330. 5. The atrial ERP was 600/274 and 100/250. 6. The right ventricular ERP was 600/240 and 400/220. Giving up to triple extrastimuli from the high right atrium as well as the coronary sinus, although I was unable to induce any SVT, so then I started isuprel at 216 getting a successful isuprel response, another electrophysiology study was performed with the following findings: 1. VA interval 142 milliseconds, QRS 86 milliseconds, QT 3.3 milliseconds. Sinus cycle length 670 milliseconds, AH 84 milliseconds, HV 42 milliseconds, AV Wenckebach 300 milliseconds, AV node ERP 500/270 and less than or equal to 400/220. 2. Atrial ERP 500/240 and 400/220 the right ventricular ERP 400/200. Giving up to triples from the high right atrium and the coronary sinus for LA pacing on isuprel did not induce any arrhythmias. 3. I then stopped the isuprel and waited for washout and then gave during a washout period, tried to induce with atrial burst pacing as well as giving atrial extrastimuli from the high right atrium and the coronary sinus up to triples and did not induce any arrhythmias. All the catheters were then removed from the body and the sheaths were pulled and manual compression was used to establish hemostasis. The patient was brought back into the animal laboratory helper holding area and monitored in recovery. IMPRESSION: 1. No inducible supraventricular tachycardia. 2. Normal atrioventricular vinnie conduction. PLAN: Monitor patient post-sedation. No heavy lifting or squatting for a week. She should follow up in my office in 1 month's time and we can further discuss the degree of whether a LINQ monitor, if she prefers to try that or just a monitor without any intervention at this juncture. I attest to the content of the Intraoperative Record and any orders documented therein. Any exception s are noted below.
== END | disposition home or self-care (01) ==
LOC: C.ACU 12:09
PROVIDERS: ATTEND Internal Medicine
DX: I47.1 Supraventricular tachycardia (principal); R00.2 Palpitations; E28.2 Polycystic ovarian syndrome; Z80.0 Family history of malignant neoplasm of digestive organs; Z82.49 Family history of ischemic heart disease and other diseases of the circulatory system

== ENCOUNTER 2017-10-18 18:50 | Emergency (ER) | payer OTHER ==
[~2017-10-18] VITALS: Ht 170.2 cm; Wt 99.5 kg
[~2017-10-18 18:50] MED LIST changes: -ACETAMINOPHEN 325 MG TAB PO PRN; -FENTANYL CITRATE INJ 50 MCG/1 ML 2 ML VIAL ONE; -ISOPROTERENOL IV ONE; -LIDOCAINE HCL 1% 20 ML VIAL ONE; -MIDAZOLAM HCL 5 MG/ML 1 ML VIAL ONE
[2017-10-18 18:57] VITALS: Ht 170.2 cm; Wt 99.5 kg
[2017-10-18] MEDS ORDERED: SODIUM CHLORIDE 0.9% 1000ML 1,000 ML IV STA (19:21)
[2017-10-18] MEDS ORDERED: ONDANSETRON INJ 2 MG/ML 2 ML VIAL IV STA (19:21)
--- NOTE | 2017-10-18 19:32 | EMERGENCY ROOM VISIT NOTE ---
History Report prepared by Inderjit: Mildred Plummer Under the Supervision of: Dr. Narciso Johnston M.D. First contact with patient: 19:13 Chief Complaint: BACK PAIN Stated Complaint: LOW BACK PAIN CYST VOMITING History of Present Illness The patient is a 27 year old female who presents to the Emergency Room with complaints of intermittent dull, achy L side pain beginning 2 or 3 days ago. She notes at times the pain becomes sharp, and it does not radiate from her back. The patient notes she was experiencing nausea and vomiting beginning today. She states the pain worsens when attempting to have bowel movements, and notes recent constipation. She reports recent fevers, but none today. The patient was diagnosed with a 4.5cm sub dermoid cyst on her L ovary last week, and notes she was told to come to the ED if she experienced nausea. She notes Advil only relieved her symptoms slightly. The patient reports she has had kidney stones in the past, one of which was surgically removed, and states her current symptoms do not feel similar. She notes she no longer has her R ovary due to a removal following a cyst 6-7 years ago. The patient states she had a cardiac ablation for SVT 6 months ago, and has also had a tonsillectomy, an adenoidectomy, wisdom teeth removal, and a C section. Source of History: patient Onset: 2 or 3 days ago Position: other (L side) Quality: ache, sharp, dull Timing: intermittent Modifying Factors (Worsening): defecation Associated Symptoms: + nausea, + vomiting Note: Associated symptoms: constipation Review of Systems See HPI for pertinent positives and negatives. A total of ten systems were reviewed and were otherwise negative. Past Medical & Surgical Medical Problems: (1) GDM, class A2 (2) Right ovarian cyst (3) Term Surgical Problems: (1) S/P removal of right ovary Family History Patient reports no known family medical history. Social History Smoking Status: Never Smoker Smokeless Tobacco Use: No Alcohol Use: occasionally Drug Use: none Marital Status: Housing Status: lives with significant other Occupation Status: employed Current/Historical Medications Scheduled Cholecalciferol (Vitamin D3), 1 TAB PO DAILY Etonogestrel/Ethinyl Estradiol (Nuvaring), 1 EA VAGRING MONTHLY Multivitamin (Multivitamin), 1 TAB PO QAM Scheduled PRN Albuterol Hfa (Ventolin Hfa), 2-4 PUFFS INH Q6H PRN for Wheezing Allergies Coded Allergies: Adhesives (Verified Allergy, Mild, HIVES, 10/18/17) Kiwi (Verified Allergy, Mild, tongue feels thick and hairy, 10/18/17) NO KNOWN DRUG ALLERGIES (Verified Allergy, Unknown, NONE, 10/18/17) Nickel (Verified Allergy, Unknown, JEWLRY, 10/18/17) Physical Exam Vital Signs Date Time Temp Pulse Resp B/P (MAP) Pulse Ox O2 Delivery O2 Flow Rate FiO2 10/18/17 22:45 36.9 99 20 144/83 98 10/18/17 20:24 99 20 144/83 98 Room Air 10/18/17 20:02 97 10/18/17 18:57 36.9 120 18 182/113 98 Room Air Physical Exam GENERAL: Awake, alert, well-appearing HENT: Normocephalic, atraumatic. Oropharynx unremarkable. EYES: Normal conjunctiva. Sclera non-icteric. NECK: Supple. No nuchal rigidity. RESPIRATORY: Clear to auscultation. No wheezes. Normal respiratory effort. CARDIAC: Normal rate. Normal rhythm. Extremities warm and well perfused. GI: Soft, non-distended. No tenderness to palpation. No rebound or guarding. No masses. RECTAL: Deferred. MUSCULOSKELETAL: Atraumatic. Chest examination reveals no tenderness. There is no CVA tenderness to palpation. LOWER EXTREMITIES: Calves are equal size bilaterally and non-tender. No edema NEURO: Normal sensorium. No sensory or motor deficits noted. No facial droop. SKIN: Warm and dry. No rash or jaundice noted. Medical Decision & Procedures ER Provider Diagnostic Interpretation: Radiology results as stated below per my review and radiologist interpretation: RENAL ULTRASOUND CLINICAL HISTORY: Left flank pain. History of stones. COMPARISON STUDY: Renal ultrasound and CT of the abdomen and pelvis June 15, 2011. TECHNIQUE: Sonography of the kidneys and the urinary bladder was performed. FINDINGS: There is no hydronephrosis. The right kidney measures 12.6 cm in maximal dimension and the left measures 12.3 cm. No calculi or masses are identified by sonography. The right ureteral jet was identified. The left ureteral jet was not visualized. Renal echogenicity, size and cortical thickness are normal. IMPRESSION: 1. No hydronephrosis. 2. Nonvisualization of the left ureteral jet. Electronically signed by: Eugene Morgan M.D. 10/18/2017 9:45 PM Dictated Date/Time: 10/18/2017 9:43 PM PELVIC ULTRASOUND CLINICAL HISTORY: Left flank/inguinal pain, hx stones, dermoid cyst. COMPARISON STUDY: CT of the abdomen and pelvis and pelvic ultrasound June 15, 2011. TECHNIQUE: Transabdominal and transvaginal sonography of the pelvis was performed. FINDINGS: The right ovary is surgically absent. The uterus measures 9.2 x 4.6 x 4.9 cm. Endometrium measures 1.2 cm in thickness. There is no free fluid. The left ovary measures 6.2 x 3.4 x 5.1 cm. Color flow is identified within the left ovary. A few cystic lesions within the left ovary measure up to 3.6 cm. There is an echogenic focus within the left ovary with possible calcifications noted. These could correspond to the calcifications shown by KUB. IMPRESSION: 1. A few cystic lesions within the left ovary which measure up to 3.6 cm. In addition, echogenic focus within the left ovary with possible associated calcifications. The findings favor a left ovarian dermoid. No sonographic evidence of left ovarian torsion. 2. Surgically absent right ovary. Electronically signed by: Eugene Morgan M.D. 10/18/2017 10:02 PM Dictated Date/Time: 10/18/2017 9:45 PM KUB CLINICAL HISTORY: Left flank pain. Possible stone. COMPARISON STUDY: CT of the abdomen and pelvis June 15, 2011 and KUB January 11, 2017. FINDINGS: Bowel gas pattern is normal. Note is made of a left pelvic calcific density which is indeterminate. In aggregate, this measures 8 mm in size. IMPRESSION: Indeterminate cluster left pelvic calcific densities which measure 8 mm in aggregate. Ureteral calculi/fragments cannot be excluded. Electronically signed by: Eugene Morgan M.D. 10/18/2017 8:36 PM Dictated Date/Time: 10/18/2017 8:31 PM Laboratory Results 10/18/17 19:41 Red Blood Count 5.13, Mean Corpuscular Volume 87.1, Mean Corpuscular Hemoglobin 30.0, Mean Corpuscular Hemoglobin Concent 34.5, Mean Platelet Volume 11.0, Neutrophils (%) (Auto) 68.2, Lymphocytes (%) (Auto) 23.7, Monocytes (%) (Auto) 6.0, Eosinophils (%) (Auto) 1.6, Basophils (%) (Auto) 0.2, Neutrophils # (Auto) 8.58, Lymphocytes # (Auto) 2.99, Monocytes # (Auto) 0.76, Eosinophils # (Auto) 0.20, Basophils # (Auto) 0.03 10/18/17 19:41 Test 10/18/17 19:41 10/18/17 20:00 White Blood Count 12.60 K/uL (4.8-10.8) Red Blood Count 5.13 M/uL (4.2-5.4) Hemoglobin 15.4 g/dL (12.0-16.0) Hematocrit 44.7 % (37-47) Mean Corpuscular Volume 87.1 fL (80-100) Mean Corpuscular Hemoglobin 30.0 pg (25-34) Mean Corpuscular Hemoglobin Concent 34.5 g/dl (32-36) Platelet Count 239 K/uL (130-400) Mean Platelet Volume 11.0 fL (7.4-10.4) Neutrophils (%) (Auto) 68.2 % Lymphocytes (%) (Auto) 23.7 % Monocytes (%) (Auto) 6.0 % Eosinophils (%) (Auto) 1.6 % Basophils (%) (Auto) 0.2 % Neutrophils # (Auto) 8.58 K/uL (1.4-6.5) Lymphocytes # (Auto) 2.99 K/uL (1.2-3.4) Monocytes # (Auto) 0.76 K/uL (0.11-0.59) Eosinophils # (Auto) 0.20 K/uL (0-0.5) Basophils # (Auto) 0.03 K/uL (0-0.2) RDW Standard Deviation 41.4 fL (36.4-46.3) RDW Coefficient of Variation 13.0 % (11.5-14.5) Immature Granulocyte % (Auto) 0.3 % Immature Granulocyte # (Auto) 0.04 K/uL (0.00-0.02) Anion Gap 8.0 mmol/L (3-11) Est Creatinine Clear Calc Drug Dose 122.7 ml/min Estimated GFR () 112.1 Estimated GFR (Non- 96.7 BUN/Creatinine Ratio 14.7 (10-20) Calcium Level 8.9 mg/dl (8.5-10.1) Total Bilirubin 0.3 mg/dl (0.2-1) Direct Bilirubin mg/dl (0-0.2) Aspartate Amino Transf (AST/SGOT) U/L (15-37) Alanine Aminotransferase (ALT/SGPT) 37 U/L (12-78) Alkaline Phosphatase 102 U/L (45-117) Total Protein 7.5 gm/dl (6.4-8.2) Albumin 3.6 gm/dl (3.4-5.0) Lipase 125 U/L (73-393) Human Chorionic Gonadotropin, Qual NEG (NEG) Urine Color YELLOW Urine Appearance CLEAR (CLEAR) Urine pH 7.0 (4.5-7.5) Urine Specific [place] 1.018 (1.000-1.030) Urine Protein NEG (NEG) Urine Glucose (UA) NEG (NEG) Urine Ketones NEG (NEG) Urine Occult Blood NEG (NEG) Urine Nitrite NEG (NEG) Urine Bilirubin NEG (NEG) Urine Urobilinogen NEG (NEG) Urine Leukocyte Esterase NEG (NEG) Laboratory results reviewed by me Medications Administered Medications (Trade) Dose Ordered Sig/Eva Route Start Time Stop Time Status Last Admin Dose Admin Sodium Chloride 1,000 ml @ 999 mls/hr Q1H1M STAT IV 10/18/17 19:21 10/18/17 20:21 DC 10/18/17 20:21 999 MLS/HR Ondansetron HCl (Zofran Inj) 4 mg NOW STAT IV 10/18/17 19:21 10/18/17 19:23 DC 10/18/17 20:20 4 MG Ketorolac Tromethamine (Toradol Inj) 15 mg NOW STAT IV 10/18/17 20:06 10/18/17 20:07 DC 10/18/17 20:21 15 MG ED Course 1917: The patient was evaluated in room C1B. A complete history and physical exam was performed. 1920: Ordered Zofran Inj 4mg IV, Sodium Chloride 1000 ml @ 999 mls/hr IV 2005: Ordered Toradol Inj 15 mg IV. 2244: I reevaluated the patient. Discussed results and discharge instructions: she verbalized understanding and agreement. The patient is ready for discharge. Medical Decision Etiologies such as appendicitis, diverticulitis, PUD, biliary pathology, UTI, pancreatitis, obstruction, mesenteric ischemia, aortic pathology, infections, inflammatory bowel disease, renal colic, as well as others were entertained. Patient presents with abdominal pain initially in the right lower quadrant last week evaluated outpatient CT with finding of a left dermoid cyst. Referred for outpatient pelvic ultrasound in 4 days but began to experience severe left flank pain now with nausea and vomiting today. Denies fever. Denies trauma. Denies other abdominal pain at this point. Transvaginal ultrasound renal ultrasound completed. Could possibly nephrolithiasis versus torsion of the ovary. Benign abdomen doubt appendicitis or biliary pathology. Basic labs are completed as well. Negative urinalysis, trace leukocytosis of 12. No acute kidney injury evidence of hepatitis or pancreatitis. Negative . Reviewed outpatient CT from 10/13 that showed normal appendix with left ovarian dermoid cyst. There is a nonobstructing bilateral nephrolithiasis noted. Ultrasounds of the kidneys and pelvis today show show no acute hydronephrosis and good blood flow to the left ovary. Left dermoid cyst is visualized. /10 pain right now. Doubt this represents torsion. Doubt PID. Doubt acute ureteral nephrolithiasis. This could be somewhat muscular in nature. Urinalysis appears negative. Leukocytosis is nonspecific at 12. Feel at this time the patient is stable for discharge continued outpatient follow-up. Again doubt other acute intra-abdominal pathology and benign abdomen will defer CT she just had one last week. Patient in agreement with this plan. Utilize over- the-counter pain medicines including Motrin and Tylenol. Has Zofran at home for nausea as needed. Discussed return precautions. Medication Reconcilliation Current Medication List: was personally reviewed by me Blood Pressure Screening Patient's blood pressure: Elevated blood pressure Blood pressure disposition: Elevated BP felt to be situational Impression Primary Impression: Left flank pain Scribe Attestation The scribe's documentation has been prepared under my direction and personally reviewed by me in its entirety. I confirm that the note above accurately reflects all work, treatment, procedures, and medical decision making performed by me. Departure Information Dispostion Home / Self-Care Referrals Jennifer Tsai DO (PCP) Forms HOME CARE DOCUMENTATION FORM, IMPORTANT VISIT INFORMATION Patient Instructions My [facility] Additional Instructions Maintain good hydration. Follow-up with your outpatient doctors within the next 3-5 days. Please inform them of the ultrasound completed here today. Utilize your Zofran at home to help with nausea. Can use [id number] Tylenol or Motrin to help with pain. If you experience new concerning symptoms or significant worsening of your pain or other concerns please feel free to return here at any time for reevaluation.
[2017-10-18 19:55] LABS: BASO % 0.2 %; BASO ABS # 0.03 K/uL (0-0.2); EOS % 1.6 %; HEMATOCRIT 44.7 % (37-47); HEMOGLOBIN 15.4 g/dL (12.0-16.0); IG# 0.04 K/uL (0.00-0.02); LYMPH % 23.7 %; LYMPH ABS # 2.99 K/uL (1.2-3.4); MEAN CELL VOLUME 87.1 fL (80-100); MEAN CORPUSCULAR HGB CONC 34.5 g/dl (32-36); MONO ABS # 0.76 K/uL (0.11-0.59); NEUT % 68.2 %; NEUT ABS # 8.58 K/uL (1.4-6.5); PLATELET COUNT 239 K/uL (130-400); RED CELL DISTRIBUTION WIDTH SD 41.4 fL (36.4-46.3)
[2017-10-18] MEDS ORDERED: KETOROLAC TROMETHAMINE 30 MG/ML VIAL IV STA (20:06)
[2017-10-18 20:26] LABS: ALBUMIN 3.6 gm/dl (3.4-5.0); CALCIUM 8.9 mg/dl (8.5-10.1); CREATININE 0.82 mg/dl (0.60-1.20); TOTAL PROTEIN 7.5 gm/dl (6.4-8.2)
--- NOTE | 2017-10-18 20:37 | DIAGNOSTIC IMAGING REPORT ---
KUB CLINICAL HISTORY: Left flank pain. Possible stone. COMPARISON STUDY: CT of the abdomen and pelvis June 15, 2011 and KUB January 11, 2017. FINDINGS: Bowel gas pattern is normal. Note is made of a left pelvic calcific density which is indeterminate. In aggregate, this measures 8 mm in size. IMPRESSION: Indeterminate cluster left pelvic calcific densities which measure 8 mm in aggregate. Ureteral calculi/fragments cannot be excluded. Electronically signed by: Eugene Morgan M.D. 10/18/2017 8:36 PM Dictated Date/Time: 10/18/2017 8:31 PM
--- NOTE | 2017-10-18 21:46 | DIAGNOSTIC IMAGING REPORT ---
RENAL ULTRASOUND CLINICAL HISTORY: Left flank pain. History of stones. COMPARISON STUDY: Renal ultrasound and CT of the abdomen and pelvis June 15, 2011. TECHNIQUE: Sonography of the kidneys and the urinary bladder was performed. FINDINGS: There is no hydronephrosis. The right kidney measures 12.6 cm in maximal dimension and the left measures 12.3 cm. No calculi or masses are identified by sonography. The right ureteral jet was identified. The left ureteral jet was not visualized. Renal echogenicity, size and cortical thickness are normal. IMPRESSION: 1. No hydronephrosis. 2. Nonvisualization of the left ureteral jet. Electronically signed by: Eugene Morgan M.D. 10/18/2017 9:45 PM Dictated Date/Time: 10/18/2017 9:43 PM
--- NOTE | 2017-10-18 22:04 | DIAGNOSTIC IMAGING REPORT ---
PELVIC ULTRASOUND CLINICAL HISTORY: Left flank/inguinal pain, hx stones, dermoid cyst. COMPARISON STUDY: CT of the abdomen and pelvis and pelvic ultrasound June 15, 2011. TECHNIQUE: Transabdominal and transvaginal sonography of the pelvis was performed. FINDINGS: The right ovary is surgically absent. The uterus measures 9.2 x 4.6 x 4.9 cm. Endometrium measures 1.2 cm in thickness. There is no free fluid. The left ovary measures 6.2 x 3.4 x 5.1 cm. Color flow is identified within the left ovary. A few cystic lesions within the left ovary measure up to 3.6 cm. There is an echogenic focus within the left ovary with possible calcifications noted. These could correspond to the calcifications shown by KUB. IMPRESSION: 1. A few cystic lesions within the left ovary which measure up to 3.6 cm. In addition, echogenic focus within the left ovary with possible associated calcifications. The findings favor a left ovarian dermoid. No sonographic evidence of left ovarian torsion. 2. Surgically absent right ovary. Electronically signed by: Eugene Morgan M.D. 10/18/2017 10:02 PM Dictated Date/Time: 10/18/2017 9:45 PM
[2017-10-18 22:45] VITALS: BP 144/83; PULSE 99; TEMP 36.9; O2SAT 98
== END 2017-10-18 22:46 | disposition home or self-care (01) ==
LOC: C.EDB 18:52 → C.EDC 22:46
DX: R10.84 Generalized abdominal pain (principal); R11.2 Nausea with vomiting, unspecified; N83.292 Other ovarian cyst, left side; Z79.3 Long term (current) use of hormonal contraceptives; Z91.018 Allergy to other foods; Z91.09 Other allergy status, other than to drugs and biological substances; Z88.8 Allergy status to other drugs, medicaments and biological substances

== ENCOUNTER 2020-01-01 14:53 | Inpatient (IN) ==
[2020-01-01] MEDS ORDERED: ONDANSETRON 4 MG OD TAB PO STA (15:05)
[2020-01-01] MEDS ORDERED: MoRPHine SULFATE 4 MG/ML 1 ML CARP\\VIAL IV STA (15:05)
[2020-01-01] MEDS ORDERED: SODIUM CHLORIDE 0.9% 1000ML 1,000 ML IV ONE (15:05)
[2020-01-01] MEDS ORDERED: cefTRIAXone SODIUM 1 GM ADDVIAL IV STA (15:12)
--- NOTE | 2020-01-01 15:27 | Emergency Department Note ---
History of Present Illness General Chief complaint: Flank Pain Stated complaint: KIDNEY PAIN/INFECTION Time Seen by Provider: 01/01/20 14:59 History of Present Illness Provider complaint: Fever Onset (ago): day(s) 5 Location: abdomen Radiation: non-radiation Severity: moderate Pain Consistency: + intermittent Maximum Pain Intensity: 6 Current Pain Intensity: 1 Quality: + aching Relieved By: + medication (Motrin) Exacerbated By: + none Associated symptoms: + fever/chills (T-max 102), + loss of appetite and + malaise; no nausea/vomiting Treatments prior to arrival: NSAID (Motrin) 29-year-old female presents emergency department for fever. Patient states she has been having fever on and off since Wednesday. She is also reporting reporting some abdominal pain and severe body aches. T-max of 102. Abdominal pain is located in the left lower quadrant and back. She reports some mild increase in urinary frequency and dysuria. No cough. No loss of taste or smell. Patient had a recent negative COVID-19 swab done outpatient. Patient states that she had an outpatient CAT scan done at [facility] as well as outpatient lab work. She was told to be admitted to the hospital for kidney infection. She states Dr. Muñoz was made aware by her PCP. Home Medications Home Medications Medication Instructions Recorded Confirmed Type Linzess 145 mcg PO QAM 10/04/19 10/27/19 History albuterol sulfate 1 inh INHALATION QID PRN 10/04/19 10/27/19 History calcium carbonate [Tums] 300 mg PO BID PRN 10/04/19 10/27/19 History loratadine [Claritin] 10 mg PO DAILY PRN 10/04/19 10/27/19 History sertraline [Zoloft] 25 mg PO QPM 10/04/19 10/27/19 History ibuprofen 600 mg PO Q6H #20 tab 10/27/19 Rx omeprazole magnesium [Prilosec OTC] 20 mg PO DAILY PRN 10/27/19 10/27/19 History oxycodone-acetaminophen [Percocet] 1 tab PO Q4H #20 tab 10/27/19 Rx Allergies Allergy/AdvReac Type Severity Reaction Status Date / Time adhesive Allergy Mild HIVES Verified 10/27/19 10:03 kiwi Allergy Mild tongue Verified 10/27/19 10:03 feels thick and hairy nickel Allergy Mild blisters Verified 10/27/19 10:03 No Known Drug Allergies Allergy Unknown NONE Verified 10/27/19 10:03 Past Med/Surg History Medical History Adnexal mass Alopecia Anxiety Asthma rarely uses PRN inh, ~ once per month Autoimmune disorder Annuloma granulari, 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 Still does have palpitations occasionally, feels r/t anxiety. Temporomandibular joint disorder (TMJ) Jaw does lock sometimes but just gets a little bit stuck, has to be popped back. Surgical History History of cardiac radiofrequency ablation Pt reports they did not find anything to ablate. History of section History of cystoscopy w/ stent placement History of esophagogastroduodenoscopy (EGD) History of lithotripsy x 2 History of right salpingo-oophorectomy History of tonsillectomy History of wisdom tooth extraction Family History Grandmother (Paternal) No problems noted. Grandmother (Maternal) Slow to wake up after anesthesia Diabetes Father Colon cancer Social History Smoking Status: Former smoker Second Hand Exposure: No; Hx Alcohol Use: No Hx Substance Use: No Preferred Language: Hungarian Communication Ability: Effective Wheat Inspector Required: No Beliefs That Will Affect Care: None Current Living Situation: Spouse Feels Safe at Home: Yes Assistive Devices: Glasses Review of Systems A total of 10 systems reviewed and were otherwise negative Physical Exam Vital Signs Vital Signs - 24 hr 01/01/20 14:56 Temperature 37.4 C Temperature Source Oral Pulse Rate 123 H Pulse Rhythm Regular Pulse Strength Normal Respiratory Rate 20 Respiratory Effort / Characteristics Non-Labored Respiratory Depth Normal Respiratory Pattern Regular Blood Pressure 163/107 H Blood Pressure Mean 125 Blood Pressure Position Sitting Pulse Oximetry 94 Oxygen Delivery Method Room Air Sepsis Recent Fever Within 48 Hours No Sepsis New/Unexplained Change in Mental Status No Sepsis Action Taken by Nursing No Action Required Physical Exam GENERAL: She is oriented to person, place, and time. She appears well-developed and well-nourished. She does not appear distressed. HENT: Exam performed. -Head: Normocephalic and atraumatic. -Right Ear: External ear normal. No mastoid tenderness. -Left Ear: External ear normal. No mastoid tenderness. -Mouth/Throat: The oropharynx is clear and moist. No trismus in the jaw. No dental abscesses or uvula swelling. No oropharyngeal exudate or tonsillar abscesses. EYES: Conjunctivae and EOM are normal. Pupils are equal, round, and reactive to light. Right eye exhibits no discharge. Left eye exhibits no discharge. No scleral icterus. NECK: Normal range of motion. Neck supple. No JVD present. No spinous process tenderness present. No carotid bruit present. No rigidity. No tracheal deviation and normal range of motion present. No Brudzinski's sign and no Kernig's sign n oted. CV: Tachycardic rate, regular rhythm, normal heart sounds and intact distal pulses. There is no peripheral edema. Palpable radial pulses bue. PULM/CHEST: Effort normal and breath sounds normal. No respiratory distress. No stridor. She has no wheezes. She has no rales. -Chest Wall: She exhibits no tenderness. ABD: The abdomen is soft. Bowel sounds are normal. She has no distension. No ma ss is present. There is tenderness to palpation of the left lower quadrant. There is no rebound, no guarding, no Cruz's sign and no tenderness at McBurney's point. Rovsig negative. Left-sided CVA tenderness. MUSC/SKEL: Normal range of motion. There is no peripheral edema, tenderness or deformity. LYMPH: No cervical adenopathy. NEURO: She is alert and oriented to person, place, and time. She has normal strength. No cranial nerve deficit or sensory deficit. Coordination and gait normal. GCS eye subscore is 4. GCS verbal subscore is 5. GCS motor subscore is 6. Cerebellar tests wnl. SKIN: Skin is warm and dry. She is not diaphoretic. PSYCH: She has a normal mood and affect. Behavior is normal. Judgment and thought content normal. Course Course 1459: The patient was evaluated in room B9. A complete history and physical exam was performed. Cardiac monitoring: An order was placed for continuous cardiac monitoring. The monitor shows a rate of 120 with sinus rhythm 1520: Silke Mclain was able to obtain the results of CAT scan done at [facility]. CT scan showed: nonobstructive bilateral renal calculi. Heterogeneous enhancement of the upper mid pole of the left kidney favoring pyelonephritis. Minimal left perinephric stranding. Mild left urethral thickening and enhancement. Incision site over the left lower quadrant showed no abscess. Complex cystic mass in the left adnexa measuring 6.4 x 4.1 cm increased in size prior to CT dated October 13, 2017. Consider further evaluation with pelvic MRI. CT was read by Dr. Ornelas at 1349 ([id number]). Discussed the case with Stephany Rahman DAVID who agreed to accept the patient for admission. She states to admit to Dr. Bedoya. Rocephin 1 g IV piggyback was started for the patient. I discussed with Stephany about the lesion in the left adnexa. She states that they will follow-up with SILVICULTURE PROFESSOR while the patient is inpatient and order ultrasound inpatient. Patient is in agreement for admission. Administered Medications Sodium Chloride (Nss 1000ml) 1,000 mls @ 999 mls/hr IV .Q1H1M ONE Stop: 01/01/20 16:05 Last Admin: 01/01/20 15:33 Dose: 999 mls/hr Documented by: Discontinued Medications Ondansetron HCl (Ondansetron 4 Mg Od Tab) 4 mg PO NOW STA Stop: 01/01/20 15:06 Last Admin: 01/01/20 15:20 Dose: 4 mg Documented by: [id number] Medical Decision Making [facility] Narrative 1459: The patient was evaluated in room B9. A complete history and physical exam was performed. Cardiac monitoring: An order was placed for continuous cardiac monitoring. The monitor shows a rate of 120 with sinus rhythm 1520: Silke Mclain was able to obtain the results of CAT scan done at [facility]. CT scan showed: nonobstructive bilateral renal calculi. Heterogeneous enhancement of the upper mid pole of the left kidney favoring pyelonephritis. Minimal left perinephric stranding. Mild left urethral thickening and enhancement. Incision site over the left lower quadrant showed no abscess. Complex cystic mass in the left adnexa measuring 6.4 x 4.1 cm increased in size prior to CT dated October 13, 2017. Consider further evaluation with pelvic MRI. CT was read by Dr. Ornelas at 1349 ([id number]). Discussed the case with Stephany Lyle PA-C who agreed to accept the patient for admission. She states to admit to Dr. Bedoya. Rocephin 1 g IV piggyback was started for the patient. I discussed with Stephany about the lesion in the left adnexa. She states that they will follow-up with SILVICULTURE PROFESSOR while the patient is inpatient and order ultrasound inpatient. Patient is in agreement for admission. Impression & Plan Pyelonephritis, Adnexal mass Discharge Plan Visit Data Chief Complaint: Flank Pain Stated Complaint: KIDNEY PAIN/INFECTION ED Provider: Deejay Gerardo Discharge Problem: Pyelonephritis, Adnexal mass Patient Disposition: Being Evaluated by Hospitalist Forms Stand Alone Forms: My [facility] Prescriptions Prescriptions: No Action sertraline [Zoloft] 25 mg Tablet 25 mg PO QPM RF: 0 albuterol sulfate 90 mcg/actuation Hfa Aerosol Inhaler 1 inh INHALATION QID PRN (Reason: sob) RF: 0 loratadine [Claritin] 10 mg Tablet 10 mg PO DAILY PRN (Reason: Allergy Symptoms) RF: 0 Linzess 145 mcg Capsule 145 mcg PO QAM RF: 0 calcium carbonate [Tums] 300 mg (750 mg) Tablet,Chewable 300 mg PO BID PRN (Reason: Acid Reflux) RF: 0 omeprazole magnesium [Prilosec OTC] 20 mg Tablet,Delayed Release (Dr/Ec) 20 mg PO DAILY PRN (Reason: Indigestion) RF: 0 ibuprofen 600 mg Tablet 600 mg PO Q6H Qty: 20 RF: 0 oxycodone-acetaminophen [Percocet] 5-325 mg Tablet 1 tab PO Q4H Qty: 20 RF: 0 Referrals Referrals: Jennifer Tsai DO [Primary Care Provider] -
[2020-01-01] MEDS ORDERED: cefTRIAXone SODIUM 2,000 MG/70 ML BAG IV STA (15:38)
--- NOTE | 2020-01-01 15:39 | History & Physical Report ---
Date of Service January 01, 2020 Assessment & Plan (1) Sepsis: (2) Pyelonephritis: This is a 29-year-old female with significant past medical history of history of PSVT, alopecia, anxiety, mild intermittent asthma, IBS, history of kidney stones, PCOS, history of complex adnexal cyst and dermoid cyst who presents to ED at the referral PCP secondary to pyelonephritis. In ED she did meet sepsis criteria secondary to tachycardia and leukocytosis. Source: Pyelonephritis of left kidney. She received 1 L of IVF with improvement of heart rate to 80s to 90s. Her lactic acid was 1.7. She received 2g IV ceftriaxone in ED. Blood cultures were ordered. admit to med tele continue IV ceftriaxone 2 g daily urine culture in epic still pending IVF 125cc/hr ibuprofen/APAP for fever/pain percocet for mod/severe pain - takes chronically at home as needed for back pain (3) Adnexal mass: hx of PCOS and complex dermoid cysts Has has R salpingo-oophorectomy secondary to dermoid cyst Recently underwent elective abdominal laparoscopy with removal of large left complex cyst, dermoid Follows Dr. Paulino I reached out to Dr. Paulino who wishes to see patient post discharge in follow up (4) IBS (irritable bowel syndrome): continue linzess (5) GERD (gastroesophageal reflux disease): continue PPI, has been taking PRN, but recently used more frequently (6) Anxiety: continue zoloft mood stable (7) DVT prophylaxis: encourage ambulation Disposition: admit to med tele Follow up: PCP Dr. Tsai upon discharge Pt was seen and examined in collaboration with Dr. Bedoya, please see addendum History of Present Illness Chief Complaint: Referred by PCP 2/2 to pyelonephritis. Primary Care Provider: Jennifer Tsai, DO This is a 29-year-old female with significant past medical history of history of PSVT, alopecia, anxiety, mild intermittent asthma, IBS, history of kidney stones, PCOS, history of complex adnexal cyst and dermoid cyst who presents to ED at the referral PCP secondary to pyelonephritis. She states symptoms initially started 4 days ago when she developed fever. She has been having fevers daily and today consistently at 102. She also is complaining of body aches, chills and mild left lower quadrant pain. She states left lower quadrant pain waxes and wanes, described as dull ache, nothing makes worse and improved with ibuprofen. She does complain of slight urinary incontinence but denies any dysuria, increased urgency or frequency with urination or hematuria or flank pain. She further denies any lightheadedness, dizziness, chest pain, shortness breath, cough, hemoptysis, emesis, melena, hematochezia. She denies any COVID- 19 exposure. Of significance she has prior history of complex dermoid cyst requiring right salpingo-oopherectomy. In September 2019 she underwent laparoscopic removal of 7 cm left adnexal dermoid cyst. Incision healed over last week and she did have some difficulty with pus like drainage, but this has since stopped. .She underwent CT abdomen pelvis due to fever and hx of pyelonephritis. This revealed nonobstructive bilateral renal calculi with heterogenous enhancement of upper and mid pole of left kidney favoring pyelonephritis. Also noted was a new complex cystic mass 6.4 x 4.1cm. She did undergo Covid test on 12/28 which was negative. Her urinalysis was suspicious for UTI with positive nitrite and moderate esterase. She was initially started on ciprofloxacin outpatient and has had 3 total doses. Given findings of pyelonephritis was referred to ED. she does have history of pyelonephritis although states previously back pain with pyelonephritis was present and very intense. Currently denies flank pain. In ED she did meet sepsis criteria secondary to tachycardia and leukocytosis. Source: Pyelonephritis of left kidney. She received 1 L of IVF with improvement of heart rate to 80s to 90s. Her lactic acid was 1.7. She received 2g IV ceftriaxone in ED. Blood cultures were ordered. Allergies Allergy/AdvReac Type Severity Reaction Status Date / Time adhesive Allergy Mild HIVES Verified 01/01/20 15:41 kiwi Allergy Mild tongue Verified 01/01/20 15:41 feels thick and hairy nickel Allergy Mild blisters Verified 01/01/20 15:41 Home Medications Home Medications Medication Instructions Recorded Confirmed Type Linzess 145 mcg PO QAM 10/04/19 01/01/20 History albuterol sulfate 1 inh INHALATION QID PRN 10/04/19 01/01/20 History calcium carbonate [Tums] 300 mg PO BID PRN 10/04/19 01/01/20 History sertraline [Zoloft] 25 mg PO QPM 10/04/19 01/01/20 History omeprazole magnesium [Prilosec OTC] 20 mg PO DAILY PRN 10/27/19 01/01/20 History ciprofloxacin HCl 500 mg PO BID 01/01/20 01/01/20 History fluticasone propionate [Flonase] 1 spray INTRANASAL DAILY 01/01/20 01/01/20 History ibuprofen 600 mg PO Q6H PRN 01/01/20 01/01/20 History multivitamin 1 tab PO DAILY 01/01/20 01/01/20 History oxycodone-acetaminophen [Percocet] 1 tab PO Q4H PRN 01/01/20 01/01/20 History Past Med/Surg History Medical History (Updated 01/01/20 @ 17:00 by Stephany Meraz PA-C) Adnexal mass Alopecia Anxiety Asthma rarely uses PRN inh, ~ once per month Autoimmune disorder Annuloma granulari, 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 Still does have palpitations occasionally, feels r/t anxiety. Temporomandibular joint disorder (TMJ) Jaw does lock sometimes but just gets a little bit stuck, has to be popped back. Surgical History History of cardiac radiofrequency ablation Pt reports they did not find anything to ablate. History of section History of cystoscopy w/ stent placement History of esophagogastroduodenoscopy (EGD) History of lithotripsy x 2 History of right salpingo-oophorectomy History of tonsillectomy History of wisdom tooth extraction Family History Grandmother (Paternal) No problems noted. Grandmother (Maternal) Slow to wake up after anesthesia Diabetes Father Colon cancer Social History Smoking Status: Former smoker Second Hand Exposure: No; Hx Alcohol Use: No Hx Substance Use: No Preferred Language: St Helenian Communication Ability: Effective Lumber Tallier Required: No Beliefs That Will Affect Care: None Current Living Situation: Spouse Feels Safe at Home: Yes Assistive Devices: Glasses Review of Systems Review of Systems: All systems reviewed & are unremarkable except as noted in HPI & below Physical Exam Physical Exam: Constitutional: WD/WN, vitals as above, NAD, sitting up in bed, pleasant, conversing easily Head: Normocephalic, Atraumatic Eyes: PERRL, conjunctivae normal, anicteric sclerae ENMT: external ear and nose normal, oropharynx normal Neck: trachea midline, no thyromegaly normal visual inspection Respiratory: normal respiratory effort, lungs clear to auscultation, no wheeze, rales, rhonchi. Normal insp/exp effort, no accessory muscle use Cardiovascular: Tachycardic rate, regular rhythm, no murmur, no edema Vessels: no JVD or carotid bruit Chest: normal inspection of chest Abdomen: normal bowel sounds, soft, nontender, no hepatosplenomegaly, no CVA tenderness Musculoskeletal: no cyanosis or clubbing, extremities motor strength 5/5 Skin: no rashes, warm and dry normal turgor Neurologic: PERRL, EOMI, accommodation nl, no face palsy, no dysarthria CN's II-XI intact bilaterally and moves all extremities Psychiatric: A+Ox3, euthymic affect Lymphatic: no cervical or axillary lymphadenopathy : deferred Results & Data Results & Data ([facility]) Vital Signs (Past 12 Hours) Vital Signs Temp Pulse Resp BP Pulse Ox 01/01/20 14:56 37.4 C 123 H 20 163/107 H 94 Laboratory Results Short CBC 01/01/20 Range/Units 15:36 WBC 12.82 H (4.8-10.8) K/uL Hgb 14.5 (12.0-16.0) g/dL Hct 42.1 (37-47) % Plt Count 206 (130-400) K/uL BMP 01/01/20 15:36 Sodium 137 Potassium 3.7 Chloride 103 Carbon Dioxide 27 BUN 9 Creatinine 0.80 Glucose 114 H Calcium 9.[address] Abd/Pelvis: IMPRESSION 1. Nonobstructive bilateral renal calculi. Heterogeneous enhancement of the upper and midpole of the left kidney, favoring pyelonephritis. Minimal left perinephric fat stranding. Mild left urothelial thickening and enhancement. A follow up contrast-enhanced CT in 3 months is suggested for re-evaluation. 2. An incision site in the left lower quadrant. No abscess collections at the incision site. 3. A complex cystic mass in the left adnexa measuring 6.4 x 4.1 cm, increased in size since prior CT dated 10/13/2017, not adequately evaluated with CT. Consider further evaluation with a pelvic MRI. 3. Other incidental findings as detailed above. Medications Administered Short CBC 01/01/20 Range/Units 15:36 WBC 12.82 H (4.8-10.8) K/uL Hgb 14.5 (12.0-16.0) g/dL Hct 42.1 (37-47) % Plt Count 206 (130-400) K/uL BMP 01/01/20 15:36 Sodium 137 Potassium 3.7 Chloride 103 Carbon Dioxide 27 BUN 9 Creatinine 0.80 Glucose 114 H Calcium 9.1 Code Status & VTE Plan Code Status Full Code VTE Prophylaxis Plan Reason for no VTE drug order: Treatment not indicated Reason for no VTE mechanical prophylaxis: Treatment not indicated Supervising Physician Co-Signing Physician Notes Attending addendum: The patient was seen and examined in emergency room She has been complaining of pain in the left lower quadrant and left line with fever and chills She has been feeling much better since in the emergency room Denies any significant symptoms during examination On examination Lying in bed comfortably Hemodynamically stable and afebrile Chest-clear to auscultate bilaterally Heart-S1-S2, regular, no murmur appreciated Abdomen-soft, mildly tender left lower quadrant without guarding and rigidity, left renal angle was not tender Extremities-edema bilaterally 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 No focal sensory and/or motor deficit appreciated Admission labs, imaging studies reviewed White count was elevated to 12.[address] scan revealed acute pyonephritis on the left side She was started with intravenous ceftriaxone pending blood culture and urine culture Agree with assessment and plan as outlined above by DAVID Minor Dr
[2020-01-01 15:48] LABS: Basophils # (auto) 0.02 K/uL (0-0.2); Basophils % (auto) 0.2 %; Eosinophils # (auto) 0.07 K/uL (0-0.5); Eosinophils % (auto) 0.5 %; Hematocrit (blood only) 42.1 % (37-47); Hemoglobin 14.5 g/dL (12.0-16.0); Immature Granulocytes # (auto) 0.03 K/uL (0.00-0.02); Immature Granulocytes % (auto) 0.2 %; Lymphocytes # (auto) 2.09 K/uL (1.2-3.4); Lymphocytes % (auto) 16.3 %; Mean Corpuscular Hemoglobin 30.3 pg (25-34); Mean Corpuscular Hgb Conc 34.4 g/dL (32-36); Mean Corpuscular Volume 87.9 fL (80-100); Mean Platelet Volume 10.5 fL (7.4-10.4); Monocytes % (auto) 13.3 %; Neutrophils # (auto) 8.91 K/uL (1.4-6.5); Neutrophils % (auto) 69.5 %; Platelet Count 206 K/uL (130-400); RDW Coefficient of Variation 12.7 % (11.5-14.5); Red Blood Count 4.79 M/uL (4.2-5.4); White Blood Count 12.82 K/uL (4.8-10.8)
[2020-01-01 16:14] LABS: BUN Creatinine Ratio 11.8 (10-20); Calcium 9.1 mg/dl (8.5-10.1); Creatinine Clr Calc Pharmacy 122.4 ml/min; Est GFR (African American) 113.9; Est GFR (Non-African American) 98.2; Potassium 3.7 mmol/L (3.5-5.1)
[2020-01-01 16:58] LABS: Appearance Urine Clear (Clear); Bacteria Urine Automated 1+ (Negative); Bilirubin Urine Negative (Negative); Blood Urine Negative (Negative); Cast Urine Automated 0 /lpf (0-5); Color Urine Yellow; Epithelial Cell Urine Auto >30 /lpf (0-5); Glucose Urine UA Negative (Negative); Ketones Urine Negative (Negative); Leukocyte Esterase Urine 2+ (Negative); Nitrite Urine Negative (Negative); Protein Urine Negative (Negative); Specific Gravity Urine 1.021 (1.000-1.030); Urobilinogen Urine Negative (Negative); WBC Urine Automated >30 /hpf (0-5)
[2020-01-01] MEDS ORDERED: IBUPROFEN 600 MG TAB PO PRN (18:12)
[2020-01-01] MEDS ORDERED: ALBUTEROL HFA 8 GM INHALER INH PRN (18:12)
[2020-01-01] MEDS ORDERED: MAGNESIUM HYDROXIDE SUSP 30 ML UDC PO PRN (18:12)
[2020-01-01] MEDS ORDERED: ALUMINUM/MAGNESIUM SUSP 30 ML UDC PO PRN (18:12)
[2020-01-01] MEDS ORDERED: ONDANSETRON INJ 2 MG/ML 2 ML VIAL IV PRN (18:12)
[2020-01-01] MEDS ORDERED: POLYETHYLENE (MIRALAX) 17 GM PACK PO PRN (18:12)
[2020-01-01] MEDS ORDERED: oxyCODONE/ACETAMINOPHEN 5mg/325mg TAB PO PRN (18:12)
[2020-01-01] MEDS ORDERED: CALCIUM CARBONATE 500 MG CHEWABLE TAB PO PRN (18:14)
[2020-01-01] MEDS ORDERED: PANTOprazole 40 MG TAB PO PRN (18:15)
[2020-01-01] MEDS: SODIUM CHLORIDE 0.9% 1000ML 1,000 ML IV SCH (18:41)
[2020-01-01] MEDS ORDERED: INFLUENZA ADMINISTRATION CHARGE ONE (18:58)
[2020-01-01] MEDS ORDERED: INFLUENZA VIRUS QUAD VACCINE 0.5 ML SYR IM ONE (18:58)
[2020-01-01] MEDS: SERTRALINE HCL 50 MG TABLET PO SCH (20:25)
[2020-01-02] MEDS: SODIUM CHLORIDE 0.9% 1000ML 1,000 ML IV SCH ×3 (02:19→20:29)
[2020-01-02] MEDS: MULTIVITAMIN TAB PO SCH (08:16)
[2020-01-02] MEDS: FLUTICASONE PROPIONATE NA SPR 16 GM BTL SCH (08:16)
[2020-01-02] MEDS: cefTRIAXone SODIUM 2,000 MG in DEXTROSE 5% 50 ML IV SCH (08:20)
[2020-01-02 08:35] LABS: Basophils # (auto) 0.03 K/uL (0-0.2); Basophils % (auto) 0.3 %; Eosinophils # (auto) 0.11 K/uL (0-0.5); Eosinophils % (auto) 1.1 %; Hematocrit (blood only) 39.3 % (37-47); Hemoglobin 13.5 g/dL (12.0-16.0); Immature Granulocytes # (auto) 0.01 K/uL (0.00-0.02); Immature Granulocytes % (auto) 0.1 %; Lymphocytes # (auto) 2.14 K/uL (1.2-3.4); Lymphocytes % (auto) 21.7 %; Mean Corpuscular Hemoglobin 30.6 pg (25-34); Mean Corpuscular Hgb Conc 34.4 g/dL (32-36); Mean Corpuscular Volume 89.1 fL (80-100); Mean Platelet Volume 11.2 fL (7.4-10.4); Monocytes # (auto) 1.16 K/uL (0.11-0.59); Monocytes % (auto) 11.8 %; Neutrophils # (auto) 6.39 K/uL (1.4-6.5); Nucleated RBC # (auto) 0.02 K/uL (0-0); Nucleated RBC % (auto) 0.2 %; Platelet Count 189 K/uL (130-400); RDW Coefficient of Variation 12.7 % (11.5-14.5); RDW Standard Deviation 41.4 fL (36.4-46.3); Red Blood Count 4.41 M/uL (4.2-5.4); White Blood Count 9.84 K/uL (4.8-10.8)
[2020-01-02 09:11] LABS: BUN Creatinine Ratio 8.2 (10-20); Calcium 8.5 mg/dl (8.5-10.1); Est GFR (African American) 129.3; Est GFR (Non-African American) 111.6
[2020-01-02] MEDS: ACETAMINOPHEN 325 MG TAB PO PRN ×2 (11:19→20:29)
--- NOTE | 2020-01-02 13:15 | Hospitalist Progress Note ---
Date of Service January 02, 2020 Assessment & Plan (1) Sepsis: (2) Pyelonephritis: Patient is a 29-year-old female with H/O PSVT, alopecia, anxiety, mild intermittent asthma, IBS, history of kidney stones, PCOS, history of complex adnexal cyst and dermoid cyst who presents to ED at the referral PCP secondary to pyelonephritis. Acute Pyelonephritis: --CT ABD 01/01/20: OUTPATIENT: Nonobstructive bilateral renal calculi. Heterogeneous enhancement of the upper and midpole of the left kidney, favoring pyelonephritis. Minimal left perinephric fat stranding. Mild left urothelial thickening and enhancement. A follow up contrast-enhanced CT in 3 months is suggested for re-evaluation. An incision site in the left lower quadrant. No abscess collections at the incision site. A complex cystic mass in the left adnexa measuring 6.4 x 4.1 cm, increased in size since prior CT dated , not adequately evaluated with CT. Consider further evaluation with a pelvic MRI. --Outpatient Urine Culture 01/01/20:Pending --Was started on Ciprofloxacin prior to admission --Blood/Urine Culture:pending --Continue Rocephin Day #2 --Continue IV fluids --No significant pain (3) Adnexal mass: Complex cystic mass, left adnexa H/O PCOS and complex dermoid cysts S/P Right salpingo-oophorectomy secondary to dermoid cyst Recently had elective abdominal laparoscopy with removal of large left complex cyst, dermoid in Oct [address] Paulino CT abdomen as above [employer]PER[employer] consulted (4) IBS (irritable bowel syndrome): continue linzess (5) GERD (gastroesophageal reflux disease): continue PPI (6) Anxiety: continue zoloft mood stable (7) DVT prophylaxis: Encourage ambulation Disposition: Expected discharge home when medically stable Admission and Anticipated Discharge Date Admission Date: January 02, 2020 Subjective Patient is seen and examined at bedside Reports minimal left-sided abdominal discomfort Reports nausea but no vomiting Denies chest pain, shortness of breath, dizziness, dysuria, hematuria Reports anxiety secondary to adnexal mass noted on recent CT Offers no other complaints Review of Systems Review of Systems: All systems reviewed & are unremarkable except as noted in HPI & below Physical Exam Physical Exam: Physical Exam: Vitals signs as noted above General Appearance:Moderately built and nourished, no apparent distress Head: normocephalic, Atraumatic Eyes: normal inspection, EOMI Neck: supple, Trachea midline Respiratory/Chest: Normal breath sounds, CTA Cardiovascular: S1, S2, No murmur Abdomen/GI:Soft, Mild L tender, Bowel sounds present Extremities/Musculoskelatal:normal inspection, no edema Neurologic/Psych:AAOX3, grossly no focal neurological deficits Skin: normal color, warm Results & Data Results & Data ([facility]) Vital Signs (Past 12 Hours) Vital Signs Temp Pulse Pulse Resp BP Pulse Ox 01/02/20 11:59 37.0 C 80 18 110/73 96 01/02/20 07:49 37.3 C 79 18 113/74 96 01/02/20 07:17 72 01/02/20 04:00 37.6 C H 93 H 19 131/83 94 Laboratory Results Short CBC 01/01/20 01/02/20 Range/Units 15:36 07:50 WBC 12.82 H 9.84 (4.8-10.8) K/uL Hgb 14.5 13.5 (12.0-16.0) g/dL Hct 42.1 39.3 (37-47) % Plt Count 206 189 (130-400) K/uL BMP 01/01/20 01/02/20 01/02/20 15:36 07:50 09:20 Sodium 137 136 Potassium 3.7 3.8 Chloride 103 108 H Carbon Dioxide 27 22 BUN 9 6 L Creatinine 0.80 0.72 Glucose 114 H 91 Calcium 9.1 8.5 Urine 01/01/20 Range/Units Unknown Urine Color Yellow Urine Appearance Clear (Clear) Urine pH 7.0 (4.5-7.5) Ur Specific [place] 1.021 (1.000-1.030) Urine Protein Negative (Negative) Urine Glucose (UA) Negative (Negative)
--- NOTE | 2020-01-02 16:50 | Ultrasound Report ---
ULTRASOUND OF THE PELVIS CLINICAL HISTORY: Left adnexal mass. Reported history of dermoid removal. COMPARISON STUDY: Pelvic ultrasound dated 10/18/2017. Pelvic CT dated 06/15/2011. TECHNIQUE: Real-time, grayscale, and color flow sonography of the pelvis is performed both transabdom inally and endovaginally. Images are reviewed in the transverse and longitudinal planes. The endovagi nal examination was performed for better assessment of the ovaries and adnexa. FINDINGS: Uterus: The uterus is normal in size and echotexture, measuring 7.9 x 4.2 x 3.8 cm. Nabothian cyst is seen in the cervix. Endometrium: The endometrium is normal in appearance, and the endometrial stripe is normal in thickne ss measuring up to 0.6 cm. Ovaries: The right ovary is surgically absent. The left ovary measures 6.6 x 3.5 x 5.0 cm. A heteroge neous solid and cystic lesion containing echogenic foci seen in the left ovary. This measures 5.3 x 3 .9 x 4.9 cm. No significant vascularity is seen within this lesion. Normal Doppler waveforms are show n within the left ovary. Pelvis: There is trace free fluid in the cul-de-sac. No concerning adnexal lesion is seen. IMPRESSION: 1. There is a 5.3 cm complex lesion in the left ovary as detailed above. This is pathologically indet erminant and may represent an ovarian dermoid. This lesion has increased in size as compared to the 2 018 examination. Gynecological surgical assessment is advised. 2. The right ovary is not identified and reported surgically absent. 3. Trace nonspecific free fluid in the cul-de-sac is likely within physiologic limits. ACT 112: Negative or not required by law. Electronically signed by: Freddie Coley M.D. 01/02/2020 4:48 PM
[2020-01-02] MEDS: SERTRALINE HCL 50 MG TABLET PO SCH (20:30)
--- NOTE | 2020-01-02 23:04 | OB/GYN Consultation ---
Date of Consultation January 02, 2020 Assessment & Plan (1) Left ovarian cyst: 29 yo female with h/o RSO in 2011 for dermoid and left ovarian cystectomy again for dermoid cyst on 10/29, now with : A heterogeneous solid and cystic lesion containing echogenic foci seen in the left ovary. This measures 5.3 x 3.9 x 4.9 cm. No significant vascularity is seen within this lesion. Normal Doppler waveforms are shown within the left ovary. Looked at pictures, appears to be a hemorrhagic cyst Discussed possible scarring healing process of LO from recent surgery vs a physiologic hemorrhagic cyts or other etiolgies Recommended f/u US in 6-8 weeks for resolution and CA 125 levels No f/h of Breast/ ovary/ uterine cancer. All questions were answered I will contact her surgeon, Dr Paulino for f/u Thank you for this consultation (2) History of dermoid cyst excision: (3) History of right oophorectomy: History of Present Illness Reason for Consultation: Adnexal mass Attending Physician: Wero Trotter MD History of Present Illness Patient is a 29 yo female who was admitted for pyelonephritis for IV AB since yesterday CT of abdomen at [facility] showed left adnexal mass She had recent surgery on left ovary where a Dermoid cyst was removed by Dr Paulino on 10/29 via Laparoscope. 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 She had pelvic US today: FINDINGS: Uterus: The uterus is normal in size and echotexture, measuring 7.9 x 4.2 x 3.8 cm. Nabothian cyst is seen in the cervix. Endometrium: The endometrium is normal in appearance, and the endometrial stripe is normal in thickness measuring up to 0.6 cm. Ovaries: The right ovary is surgically absent. The left ovary measures 6.6 x 3.5 x 5.0 cm. A heterogeneous solid and cystic lesion containing echogenic foci seen in the left ovary. This measures 5.3 x 3.9 x 4.9 cm. No significant vascularity is seen within this lesion. Normal Doppler waveforms are shown within the left ovary. Pelvis: There is trace free fluid in the cul-de-sac. No concerning adnexal lesion is seen. Looked at pictures, appears to be a hemorrhagic cyst Discussed possible scarring healing process of LO from recent surgery vs a physiologic hemorrhagic cyts or other etiolgies Recommended f/u US in 6-8 weeks for resolution and CA 125 levels No f/h of Breast/ ovary/ uterine cancer. Allergies Allergy/AdvReac Type Severity Reaction Status Date / Time adhesive Allergy Mild HIVES Verified 01/01/20 15:41 kiwi Allergy Mild tongue Verified 01/01/20 15:41 feels thick and hairy nickel Allergy Mild blisters Verified 01/01/20 15:41 Home Medications Home Medications Medication Instructions Recorded Confirmed Type Linzess 145 mcg PO QAM 10/04/19 01/01/20 History albuterol sulfate 1 inh INHALATION QID PRN 10/04/19 01/01/20 History calcium carbonate [Tums] 300 mg PO BID PRN 10/04/19 01/01/20 History sertraline [Zoloft] 25 mg PO QPM 10/04/19 01/01/20 History omeprazole magnesium [Prilosec OTC] 20 mg PO DAILY PRN 10/27/19 01/01/20 History ciprofloxacin HCl 500 mg PO BID 01/01/20 01/01/20 History fluticasone propionate [Flonase] 1 spray INTRANASAL DAILY 01/01/20 01/01/20 History ibuprofen 600 mg PO Q6H PRN 01/01/20 01/01/20 History multivitamin 1 tab PO DAILY 01/01/20 01/01/20 History oxycodone-acetaminophen [Percocet] 1 tab PO Q4H PRN 01/01/20 01/01/20 History Patient History Medical History Adnexal mass Alopecia Anxiety Asthma rarely uses PRN inh, ~ once per month Autoimmune disorder Annuloma granulari, 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 Still does have palpitations occasionally, feels r/t anxiety. Temporomandibular joint disorder (TMJ) Jaw does lock sometimes but just gets a little bit stuck, has to be popped back. Surgical History History of cardiac radiofrequency ablation Pt reports they did not find anything to ablate. History of section History of cystoscopy w/ stent placement History of esophagogastroduodenoscopy (EGD) History of lithotripsy x 2 History of right salpingo-oophorectomy History of tonsillectomy History of wisdom tooth extraction Family History Grandmother (Paternal) No problems noted. Grandmother (Maternal) Slow to wake up after anesthesia Diabetes Father Colon cancer Social History Smoking Status: Never smoker Second Hand Exposure: Yes (occasionally); Do You Dip or Chew Tobacco: No; Tobacco Cessation Education Requested by Patient: No Hx Alcohol Use: Yes Alcohol type: wine Hx Substance Use: No Preferred Language: Nepalese Communication Ability: Effective [employer] Top Assembler Required: No Beliefs That Will Affect Care: None Current Living Situation: Family Other Information That Helps Us Care for You: No Feels Safe at Home: Yes Safety Concerns: Feels Safe At This Time Assistive Devices: Glasses Review of Systems Review of Systems: All systems reviewed & are unremarkable except as noted in HPI & below Physical Exam Constitutional: WD/WN, vitals as above well developed and well nourished Sitting in bed comfortable Gastrointestinal (Abdomen): normal bowel sounds, soft, nontender, no hepatosplenomegaly (mild LLQ tenderness, no reboud no guarding, ) Inspection/Auscultation: + abdominal surgical incision (skin incisions from recent laparoscopy formed keloid, still healing) Results & Data ([facility]) Vital Signs (Past 12 Hours) Vital Signs Temp Pulse Pulse Resp BP Pulse Ox 01/02/20 19:34 37.1 C 86 19 133/86 96 01/02/20 16:00 79 01/02/20 11:59 37.0 C 80 18 110/73 96 Laboratory Results Lab Results 01/01/20 01/01/20 01/01/20 Range/Units 15:36 15:36 15:36 WBC 12.82 H (4.8-10.8) K/uL RBC 4.79 (4.2-5.4) M/uL Hgb 14.5 (12.0-16.0) g/dL Hct 42.1 (37-47) % MCV 87.9 (80-100) fL MCH 30.3 (25-34) pg MCHC 34.4 (32-36) g/dL RDW Std Deviation 41.0 (36.4-46.3) fL RDW Coeff of Kahlil 12.7 (11.5-14.5) % Plt Count 206 (130-400) K/uL MPV 10.5 H (7.4-10.4) fL Immature Gran % (Auto) 0.2 % Neut % (Auto) 69.5 % Lymph % (Auto) 16.3 % [place] % (Auto) 13.3 % Eos % (Auto) 0.5 % Baso % (Auto) 0.2 % Neut # (Auto) 8.91 H (1.4-6.5) K/uL Lymph # (Auto) 2.09 (1.2-3.4) K/uL [place] # (Auto) 1.70 H (0.11-0.59) K/uL Eos # (Auto) 0.07 (0-0.5) K/uL Baso # (Auto) 0.02 (0-0.2) K/uL Immature Gran # (Auto) 0.03 H (0.00-0.02) K/uL Absolute Nucleated RBC (0-0) K/uL Nucleated RBC % (auto) % Sodium 137 (136-145) mmol/L Potassium 3.7 (3.5-5.1) mmol/L Chloride 103 (98-107) mmol/L Carbon Dioxide 27 (21-32) mmol/L Anion Gap 7.0 (3-11) BUN 9 (7-18) mg/dl Creatinine 0.80 (0.6-1.2) mg/dl Est Cr Clr Drug Dosing 122.4 ml/min Est GFR ( Amer) 113.9 Est GFR (Non-Af Amer) 98.2 BUN/Creatinine Ratio 11.8 (10-20) Glucose 114 H (70-99) mg/dl Lactate 1.7 (0.4-2.0) mmol/L Calcium 9.1 (8.5-10.1) mg/dl Urine Color Urine Appearance (Clear) Urine pH (4.5-7.5) Ur Specific [place] (1.000-1.030) Urine Protein (Negative) Urine Glucose (UA) (Negative) Urine Ketones (Negative) Urine Blood (Negative) Urine Nitrite (Negative) Urine Bilirubin (Negative) Urine Urobilinogen (Negative) Ur Leukocyte Esterase (Negative) Urine WBC (Auto) (0-5) /hpf Urine RBC (Auto) (0-4) /hpf U Hyaline Cast (Auto) (0-5) /lpf U Epithel Cells (Auto) (0-5) /lpf Urine Bacteria (Auto) (Negative) 01/01/20 01/02/20 01/02/20 Range/Units Unknown 07:50 07:50 WBC 9.84 (4.8-10.8) K/uL RBC 4.41 (4.2-5.4) M/uL Hgb 13.5 (12.0-16.0) g/dL Hct 39.3 (37-47) % MCV 89.1 (80-100) fL MCH 30.6 (25-34) pg MCHC 34.4 (32-36) g/dL RDW Std Deviation 41.4 (36.4-46.3) fL RDW Coeff of Kahlil 12.7 (11.5-14.5) % Plt Count 189 (130-400) K/uL MPV 11.2 H (7.4-10.4) fL Immature Gran % (Auto) 0.1 % Neut % (Auto) 65.0 % Lymph % (Auto) 21.7 % [place] % (Auto) 11.8 % Eos % (Auto) 1.1 % Baso % (Auto) 0.3 % Neut # (Auto) 6.39 (1.4-6.5) K/uL Lymph # (Auto) 2.14 (1.2-3.4) K/uL [place] # (Auto) 1.16 H (0.11-0.59) K/uL Eos # (Auto) 0.11 (0-0.5) K/uL Baso # (Auto) 0.03 (0-0.2) K/uL Immature Gran # (Auto) 0.01 (0.00-0.02) K/uL Absolute Nucleated RBC 0.02 H (0-0) K/uL Nucleated RBC % (auto) 0.2 % Sodium 136 (136-145) mmol/L Potassium (3.5-5.1) mmol/L Chloride 108 H (98-107) mmol/L Carbon Dioxide 22 (21-32) mmol/L Anion Gap 6.0 (3-11) BUN 6 L (7-18) mg/dl Creatinine 0.72 (0.6-1.2) mg/dl Est Cr Clr Drug Dosing 140.0 ml/min Est GFR ( Amer) 129.3 Est GFR (Non-Af Amer) 111.6 BUN/Creatinine Ratio 8.2 L (10-20) Glucose 91 (70-99) mg/dl Lactate (0.4-2.0) mmol/L Calcium 8.5 (8.5-10.1) mg/dl Urine Color Yellow Urine Appearance Clear (Clear) Urine pH 7.0 (4.5-7.5) Ur Specific [place] 1.021 (1.000-1.030) Urine Protein Negative (Negative) Urine Glucose (UA) Negative (Negative) Urine Ketones Negative (Negative) Urine Blood Negative (Negative) Urine Nitrite Negative (Negative) Urine Bilirubin Negative (Negative) Urine Urobilinogen Negative (Negative) Ur Leukocyte Esterase 2+ H (Negative) Urine WBC (Auto) >30 H (0-5) /hpf Urine RBC (Auto) 5-10 H (0-4) /hpf U Hyaline Cast (Auto) 0 (0-5) /lpf U Epithel Cells (Auto) >30 H (0-5) /lpf Urine Bacteria (Auto) 1+ H (Negative) 01/02/20 Range/Units 09:20 WBC (4.8-10.8) K/uL RBC (4.2-5.4) M/uL Hgb (12.0-16.0) g/dL Hct (37-47) % MCV (80-100) fL MCH (25-34) pg MCHC (32-36) g/dL RDW Std Deviation (36.4-46.3) fL RDW Coeff of Kahlil (11.5-14.5) % Plt Count (130-400) K/uL MPV (7.4-10.4) fL Immature Gran % (Auto) % Neut % (Auto) % Lymph % (Auto) % [place] % (Auto) % Eos % (Auto) % Baso % (Auto) % Neut # (Auto) (1.4-6.5) K/uL Lymph # (Auto) (1.2-3.4) K/uL [place] # (Auto) (0.11-0.59) K/uL Eos # (Auto) (0-0.5) K/uL Baso # (Auto) (0-0.2) K/uL Immature Gran # (Auto) (0.00-0.02) K/uL Absolute Nucleated RBC (0-0) K/uL Nucleated RBC % (auto) % Sodium (136-145) mmol/L Potassium 3.8 (3.5-5.1) mmol/L Chloride (98-107) mmol/L Carbon Dioxide (21-32) mmol/L Anion Gap (3-11) BUN (7-18) mg/dl Creatinine (0.6-1.2) mg/dl Est Cr Clr Drug Dosing ml/min Est GFR ( Amer) Est GFR (Non-Af Amer) BUN/Creatinine Ratio (10-20) Glucose (70-99) mg/dl Lactate (0.4-2.0) mmol/L Calcium (8.5-10.1) mg/dl Urine Color Urine Appearance (Clear) Urine pH (4.5-7.5) Ur Specific [place] (1.000-1.030) Urine Protein (Negative) Urine Glucose (UA) (Negative) Urine Ketones (Negative) Urine Blood (Negative) Urine Nitrite (Negative) Urine Bilirubin (Negative) Urine Urobilinogen (Negative) Ur Leukocyte Esterase (Negative) Urine WBC (Auto) (0-5) /hpf Urine RBC (Auto) (0-4) /hpf U Hyaline Cast (Auto) (0-5) /lpf U Epithel Cells (Auto) (0-5) /lpf Urine Bacteria (Auto) (Negative)
[2020-01-03] MEDS: SODIUM CHLORIDE 0.9% 1000ML 1,000 ML IV SCH (02:12)
[2020-01-03 06:25] LABS: Hematocrit (blood only) 40.2 % (37-47); Hemoglobin 13.6 g/dL (12.0-16.0); Mean Corpuscular Hemoglobin 30.6 pg (25-34); Mean Corpuscular Hgb Conc 33.8 g/dL (32-36); Mean Corpuscular Volume 90.3 fL (80-100); Mean Platelet Volume 10.6 fL (7.4-10.4); Platelet Count 217 K/uL (130-400); RDW Coefficient of Variation 12.8 % (11.5-14.5); RDW Standard Deviation 42.3 fL (36.4-46.3); Red Blood Count 4.45 M/uL (4.2-5.4); White Blood Count 9.21 K/uL (4.8-10.8)
[2020-01-03 06:52] LABS: BUN Creatinine Ratio 10.6 (10-20); Calcium 8.1 mg/dl (8.5-10.1); Creatinine Clr Calc Pharmacy 141.6 ml/min; Est GFR (African American) 131.5; Est GFR (Non-African American) 113.5; Magnesium 2.1 mg/dl (1.8-2.4); Potassium 3.9 mmol/L (3.5-5.1)
[2020-01-03] MEDS: cefTRIAXone SODIUM 2,000 MG in DEXTROSE 5% 50 ML IV SCH (08:00)
[2020-01-03] MEDS: FLUTICASONE PROPIONATE NA SPR 16 GM BTL SCH (08:00)
[2020-01-03] MEDS: MULTIVITAMIN TAB PO SCH (08:01)
[2020-01-03] MEDS: ACETAMINOPHEN 325 MG TAB PO PRN ×2 (08:04→23:38)
[2020-01-03] MEDS: DOCUSATE SODIUM 100 MG CAP PO SCH ×2 (12:16→20:32)
--- NOTE | 2020-01-03 18:52 | Hospitalist Progress Note ---
Date of Service January 03, 2020 Assessment & Plan (1) Sepsis: (2) Pyelonephritis: Patient is a 29-year-old female with H/O PSVT, alopecia, anxiety, mild intermittent asthma, IBS, history of kidney stones, PCOS, history of complex adnexal cyst and dermoid cyst who presents to ED at the referral PCP secondary to pyelonephritis. Acute Pyelonephritis: --CT ABD 01/01/20: OUTPATIENT: Nonobstructive bilateral renal calculi. Heterogeneous enhancement of the upper and midpole of the left kidney, favoring pyelonephritis. Minimal left perinephric fat stranding. Mild left urothelial thickening and enhancement. A follow up contrast-enhanced CT in 3 months is suggested for re-evaluation. An incision site in the left lower quadrant. No abscess collections at the incision site. A complex cystic mass in the left adnexa measuring 6.4 x 4.1 cm, increased in size since prior CT dated , not adequately evaluated with CT. Consider further evaluation with a pelvic MRI. --Outpatient Urine Culture 01/01/20:Pending --Was started on Ciprofloxacin prior to admission --Blood/Urine Culture:pending --Continue Rocephin Day #3 --Received IV fluids --Continue current medications (3) Adnexal mass: Complex cystic mass, left adnexa: ? Hemorrhagic Cyst H/O PCOS and complex dermoid cysts S/P Right salpingo-oophorectomy secondary to dermoid cyst Recently had elective abdominal laparoscopy with removal of large left complex cyst, dermoid in Oct 18 -Transvaginal USD:There is a 5.3 cm complex lesion in the left ovary as detailed above. This is pathologically indeterminant and may represent an ovarian dermoid. This lesion has increased in size as compared to the 2018 examination. Gynecological surgical assessment is advised. The right ovary is not identified and reported surgically absent. Trace nonspecific free fluid in the cul-de-sac is likely within physiologic limits. -CA-125 levels Pending -Appreciate OBGYN Input --Needs follow up with OBGYN as outpatient --Needs follow up USD in 6-8 weeks (4) IBS (irritable bowel syndrome): continue linzess, bowel regimen (5) GERD (gastroesophageal reflux disease): continue PPI (6) Anxiety: continue zoloft mood stable (7) DVT prophylaxis: Encourage ambulation Disposition: Expected discharge home when medically stable Admission and Anticipated Discharge Date Admission Date: January 02, 2020 Subjective Patient is seen and examined at bedside States feeling a lot better today No new complaints Denies any significant abdominal pain Eager to get discharged Denies chest pain, shortness of breath, dizziness, dysuria, hematuria Review of Systems Review of Systems: All systems reviewed & are unremarkable except as noted in HPI & below Physical Exam Physical Exam: Physical Exam: Vitals signs as noted above General Appearance:Moderately built and nourished, no apparent distress Head: normocephalic, Atraumatic Eyes: normal inspection, EOMI Neck: supple, Trachea midline Respiratory/Chest: Normal breath sounds, CTA Cardiovascular: S1, S2, No murmur Abdomen/GI:Soft, Non tender, Bowel sounds present Extremities/Musculoskelatal:normal inspection, no edema Neurologic/Psych:AAOX3, grossly no focal neurological deficits Skin: normal color, warm Results & Data Results & Data ([facility]) Vital Signs (Past 12 Hours) Vital Signs Temp Pulse Resp BP Pulse Ox 01/03/20 15:57 37.0 C 88 18 127/74 96 01/03/20 11:00 36.9 C 70 16 133/84 96 01/03/20 07:13 37 C 86 18 131/85 97 Laboratory Results Short CBC 01/03/20 Range/Units 06:10 WBC 9.21 (4.8-10.8) K/uL Hgb 13.6 (12.0-16.0) g/dL Hct 40.2 (37-47) % Plt Count 217 (130-400) K/uL BMP 01/03/20 06:09 Sodium 140 Potassium 3.9 Chloride 110 H Carbon Dioxide 28 BUN 7 Creatinine 0.71 Glucose 94 Calcium 8.1 L
[2020-01-03] MEDS: SERTRALINE HCL 50 MG TABLET PO SCH (20:32)
[2020-01-03] MEDS ORDERED: diphenhydrAMINE Capsule 25 MG CAP PO ONE (23:48)
[2020-01-04] MEDS: cefTRIAXone SODIUM 2,000 MG in DEXTROSE 5% 50 ML IV SCH (07:28)
[2020-01-04] MEDS: MULTIVITAMIN TAB PO SCH (07:28)
[2020-01-04] MEDS: FLUTICASONE PROPIONATE NA SPR 16 GM BTL SCH (07:28)
[2020-01-04] MEDS: DOCUSATE SODIUM 100 MG CAP PO SCH (07:29)
--- NOTE | 2020-01-04 12:37 | Hospitalist Progress Note ---
Date of Service January 04, 2020 Assessment & Plan (1) Sepsis: (2) Pyelonephritis: Patient is a 29-year-old female with H/O PSVT, alopecia, anxiety, mild intermittent asthma, IBS, history of kidney stones, PCOS, history of complex adnexal cyst and dermoid cyst who presents to ED at the referral PCP secondary to pyelonephritis. Acute Pyelonephritis: --CT ABD 01/01/20: OUTPATIENT: Nonobstructive bilateral renal calculi. Heterogeneous enhancement of the upper and midpole of the left kidney, favoring pyelonephritis. Minimal left perinephric fat stranding. Mild left urothelial thickening and enhancement. A follow up contrast-enhanced CT in 3 months is suggested for re-evaluation. An incision site in the left lower quadrant. No abscess collections at the incision site. A complex cystic mass in the left adnexa measuring 6.4 x 4.1 cm, increased in size since prior CT dated , not adequately evaluated with CT. Consider further evaluation with a pelvic MRI. --Outpatient Urine Culture 01/01/20: Pansensitive E. coli --Was started on Ciprofloxacin prior to admission --Blood/Urine Culture: No growth to date --Continue Rocephin Day #4 --Received IV fluids --Plan to resume ciprofloxacin upon discharge to complete the course of antibiotics. (3) Adnexal mass: Complex cystic mass, left adnexa: ? Hemorrhagic Cyst H/O PCOS and complex dermoid cysts S/P Right salpingo-oophorectomy secondary to dermoid cyst Recently had elective abdominal laparoscopy with removal of large left complex cyst, dermoid in Oct 18 -Transvaginal USD:There is a 5.3 cm complex lesion in the left ovary as detailed above. This is pathologically indeterminant and may represent an ovarian dermoid. This lesion has increased in size as compared to the 2018 examination. Gynecological surgical assessment is advised. The right ovary is not identified and reported surgically absent. Trace nonspecific free fluid in the cul-de-sac is likely within physiologic limits. -CA-125 levels Pending -Appreciate OBGYN Input --Needs follow up with OBGYN as outpatient --Needs follow up USD in 6-8 weeks (4) IBS (irritable bowel syndrome): continue linzess, bowel regimen (5) GERD (gastroesophageal reflux disease): continue PPI (6) Anxiety: continue zoloft mood stable (7) DVT prophylaxis: Encourage ambulation Disposition: Plan to discharge home today Admission and Anticipated Discharge Date Admission Date: January 02, 2020 Subjective Patient is seen and examined at bedside Eager to get discharged Headache much improved Had bowel movement No new complaints Denies chest pain, dyspnea, abd pain, dizziness, dysuria, hematuria Review of Systems Review of Systems: All systems reviewed & are unremarkable except as noted in HPI & below Physical Exam Physical Exam: Physical Exam: Vitals signs as noted above General Appearance:Moderately built and nourished, no apparent distress Head: normocephalic, Atraumatic Eyes: normal inspection, EOMI Neck: supple, Trachea midline Respiratory/Chest: Normal breath sounds, CTA Cardiovascular: S1, S2, No murmur Abdomen/GI:Soft, Non tender, Bowel sounds present Extremities/Musculoskelatal:normal inspection, no edema Neurologic/Psych:AAOX3, grossly no focal neurological deficits Skin: normal color, warm Results & Data Results & Data ([facility]) Vital Signs (Past 12 Hours) Vital Signs Temp Pulse Resp BP Pulse Ox 01/04/20 07:30 36.1 C L 81 18 128/84 97
--- NOTE | 2020-01-04 12:51 | Discharge Summary ---
Date of Service January 04, 2020 Admission HPI Per Admitting Provider This is a 29-year-old female with significant past medical history of history of PSVT, alopecia, anxiety, mild intermittent asthma, IBS, history of kidney stones, PCOS, history of complex adnexal cyst and dermoid cyst who presents to ED at the referral PCP secondary to pyelonephritis. She states symptoms initially started 4 days ago when she developed fever. She has been having fevers daily and today consistently at 102. She also is complaining of body aches, chills and mild left lower quadrant pain. She states left lower quadrant pain waxes and wanes, described as dull ache, nothing makes worse and improved with ibuprofen. She does complain of slight urinary incontinence but denies any dysuria, increased urgency or frequency with urination or hematuria or flank pain. She further denies any lightheadedness, dizziness, chest pain, shortness breath, cough, hemoptysis, emesis, melena, hematochezia. She denies any COVID- 19 exposure. Of significance she has prior history of complex dermoid cyst requ iring right salpingo-oopherectomy. In September 2019 she underwent laparoscopic removal of 7 cm left adnexal dermoid cyst. Incision healed over last week and she did have some difficulty with pus like drainage, but this has since stopped. .She underwent CT abdomen pelvis due to fever and hx of pyelonephritis. This revealed nonobstructive bilateral renal calculi with heterogenous enhancement of upper and mid pole of left kidney favoring pyelonephritis. Also noted was a new complex cystic mass 6.4 x 4.1cm. She did undergo Covid test on 12/28 which was negative. Her urinalysis was suspicious for UTI with positive nitrite and moderate esterase. She was initially started on ciprofloxacin outpatient and has had 3 total doses. Given findings of pyelonephritis was referred to ED. she does have history of pyelonephritis although states previously back pain with pyelonephritis was present and very intense. Currently denies flank pain. In ED she did meet sepsis criteria secondary to tachycardia and leukocytosis. Source: Pyelonephritis of left kidney. She received 1 L of IVF with improvement of heart rate to 80s to 90s. Her lactic acid was 1.7. She received 2g IV ceftriaxone in ED. Blood cultures were ordered. Admission Exam Per Admitting Provider Physical Exam Physical Exam: Constitutional: WD/WN, vitals as above, NAD, sitting up in bed, pleasant, conversing easily Head: Normocephalic, Atraumatic Eyes: PERRL, conjunctivae normal, anicteric sclerae ENMT: external ear and nose normal, oropharynx normal Neck: trachea midline, no thyromegaly normal visual inspection Respiratory: normal respiratory effort, lungs clear to auscultation, no wheeze, rales, rhonchi. Normal insp/exp effort, no accessory muscle use Cardiovascular: Tachycardic rate, regular rhythm, no murmur, no edema Vessels: no JVD or carotid bruit Chest: normal inspection of chest Abdomen: normal bowel sounds, soft, nontender, no hepatosplenomegaly, no CVA tenderness Musculoskeletal: no cyanosis or clubbing, extremities motor strength 5/5 Skin: no rashes, warm and dry normal turgor Neurologic: PERRL, EOMI, accommodation nl, no face palsy, no dysarthria CN's II-XI intact bilaterally and moves all extremities Psychiatric: A+Ox3, euthymic affect Lymphatic: no cervical or axillary lymphadenopathy : deferred Principal Diagnosis Acute Pyelonephritis Left Ovarian Cyst Discharge Data Allergies Allergy/AdvReac Type Severity Reaction Status Date / Time adhesive Allergy Mild HIVES Verified 01/01/20 15:41 kiwi Allergy Mild tongue Verified 01/01/20 15:41 feels thick and hairy nickel Allergy Mild blisters Verified 01/01/20 15:41 Consultations 01/01/20 15:14 ED Decision to Admit Stat 01/02/20 11:29 Consult Gynecology Routine Procedures Performed --CT ABD 01/01/20: OUTPATIENT: Nonobstructive bilateral renal calculi. Heterogeneous enhancement of the upper and midpole of the left kidney, favoring pyelonephritis. Minimal left perinephric fat stranding. Mild left urothelial thickening and enhancement. A follow up contrast-enhanced CT in 3 months is suggested for re-evaluation. An incision site in the left lower quadrant. No abscess collections at the incision site. A complex cystic mass in the left adnexa measuring 6.4 x 4.1 cm, increased in size since prior CT dated 10/13/2017, not adequately evaluated with CT. Consider further evaluation with a pelvic MRI. Transvaginal USD:There is a 5.3 cm complex lesion in the left ovary as detailed above. This is pathologically indeterminant and may represent an ovarian dermoid. This lesion has increased in size as compared to the 2018 examination. Gynecological surgical assessment is advised. The right ovary is not identified and reported surgically absent. Trace nonspecific free fluid in the cul-de-sac is likely within physiologic limits. Ordered Studies 01/02/20 14:21 US pelvic complete Urgent US transvaginal Urgent Hospital Course (1) Sepsis: (2) Pyelonephritis: Patient is a 29-year-old female with H/O PSVT, alopecia, anxiety, mild intermittent asthma, IBS, history of kidney stones, PCOS, history of complex adnexal cyst and dermoid cyst who presents to ED at the referral PCP secondary to pyelonephritis. Acute Pyelonephritis: --CT ABD 01/01/20: OUTPATIENT: Nonobstructive bilateral renal calculi. Heterogeneous enhancement of the upper and midpole of the left kidney, favoring pyelonephritis. Minimal left perinephric fat stranding. Mild left urothelial thickening and enhancement. A follow up contrast-enhanced CT in 3 months is suggested for re-evaluation. An incision site in the left lower quadrant. No abscess collections at the incision site. A complex cystic mass in the left adnexa measuring 6.4 x 4.1 cm, increased in size since prior CT dated 10/13/2017, not adequately evaluated with CT. Consider further evaluation with a pelvic MRI. --Outpatient Urine Culture 01/01/20: Pansensitive E. coli --Was started on Ciprofloxacin prior to admission --Blood/Urine Culture: No growth to date --Continue Rocephin Day #4 --Received IV fluids --Plan to resume ciprofloxacin upon discharge to complete the course of antibiotics. (3) Adnexal mass: Complex cystic mass, left adnexa: ? Hemorrhagic Cyst H/O PCOS and complex dermoid cysts S/P Right salpingo-oophorectomy secondary to dermoid cyst Recently had elective abdominal laparoscopy with removal of large left complex cyst, dermoid in Oct 18 -Transvaginal USD:There is a 5.3 cm complex lesion in the left ovary as detailed above. This is pathologically indeterminant and may represent an ovarian dermoid. This lesion has increased in size as compared to the 2018 examination. Gynecological surgical assessment is advised. The right ovary is not identified and reported surgically absent. Trace nonspecific free fluid in the cul-de-sac is likely within physiologic limits. -CA-125 levels Pending -Appreciate OBGYN Input --Needs follow up with OBGYN as outpatient --Needs follow up USD in 6-8 weeks (4) IBS (irritable bowel syndrome): continue linzess, bowel regimen (5) GERD (gastroesophageal reflux disease): continue PPI (6) Anxiety: continue zoloft mood stable (7) DVT prophylaxis: Encourage ambulation Disposition: Plan to discharge home today Total Time Total Time Spent Total Time Spent (In Minutes): 41 minutes Total Time Includes: Examination of the Patient, Discharge Planning, Medication Reconciliation, Communication With Other Providers and Other Discharge Plan Discharge Items Patient Disposition: Home - Self-Care Reason For Visit: PYELONEPHRITIS Discharge Diagnosis: Acute Pyelonephritis Left Ovarian Cyst Activity: Resume your previous activity Exercise/Sports: Gradually increase as tolerated Non-emergency contact: Primary Care Provider and Installer [employer] Call non-emergency contact if: you have any medication questions, your symptoms worsen, your pain is not controlled, your pain is worsening, your pain is unusual for you, your pain is concerning for you and you have a fever Follow-up/Referrals: Jennifer Tsai, [Primary Care Provider] - (Date & Time 01/08/2020 11:00 AM Provider Rod Escalante III, MD Department [facility] ) Diet: Heart Healthy Addtl Attending Provider Instructions: Follow up with your Primary Care physician on 01/08/2020 11:00 AM Follow up with your OBGYN as recommended by your PLANT FACILITIES TECHNICIAN Get repeat vaginal ultrasound in 6 to 8 weeks and follow-up with your PLANT FACILITIES TECHNICIAN Your blood tests--CA-125 levels and blood cultures are pending at the time of discharge follow-up with your physician for results Resume ciprofloxacin 500 mg twice a day to complete 5 more days of antibiotic course as recommended. Seek immediate medical attention if your symptoms reoccur or worsen Pending Studies at Discharge: Yes Studies:: Blood Cultures, CA-125 levels Stand-Alone Forms: My Blip, Work/School Release (Inpt), Smoking Cessation Medications and DC Order Prescriptions: Continued sertraline [Zoloft] 25 mg Tablet 25 mg PO QPM RF: 0 albuterol sulfate 90 mcg/actuation Hfa Aerosol Inhaler 1 inh INHALATION QID PRN (Reason: Shortness Of Breath) RF: 0 Linzess 145 mcg Capsule 145 mcg PO QAM RF: 0 calcium carbonate [Tums] 300 mg (750 mg) Tablet,Chewable 300 mg PO BID PRN (Reason: Acid Reflux) RF: 0 omeprazole magnesium [Prilosec OTC] 20 mg Tablet,Delayed Release (Dr/Ec) 20 mg PO DAILY PRN (Reason: Indigestion) RF: 0 ciprofloxacin HCl 500 mg tablet 500 mg PO BID RF: 0 fluticasone propionate 50 mcg/actuation Amberg,Suspension 1 spray INTRANASAL DAILY RF: 0 oxycodone-acetaminophen [Percocet] 5-325 mg tablet 1 tab PO Q4H PRN (Reason: Pain) RF: 0 ibuprofen 600 mg tablet 600 mg PO Q6H PRN (Reason: Pain) RF: 0 multivitamin Tablet 1 tab PO DAILY RF: 0 Discharge Orders: Discharge Order (Routine); Ordered 01/04/20 Ordered By: Wero Trotter Admission Data Admit Date/Time: 01/02/20 07:43 Attending Provider: Wero Tortter Admit Provider: Clayton Bedoya Primary Care Provider: Jennifer Tasi Other Providers: Clayton Bedoya ; Jarred Paulino Other Interventions: Discharge Summary Assessment (RN) Last Done: 01/04/20 12:57
== END 2020-01-04 13:15 | disposition home or self-care (01) | DRG 872 ==
LOC: 2N 14:53 → ED 14:53 → SUATTDRO 15:44 → 2N 17:55
DX: F41.9 Anxiety disorder, unspecified; N10 Acute pyelonephritis; Z87.891 Personal history of nicotine dependence; N39.0 Urinary tract infection, site not specified; K21.9 Gastro-esophageal reflux disease without esophagitis; K58.9 Irritable bowel syndrome, unspecified; D27.9 Benign neoplasm of unspecified ovary; R19.09 Other intra-abdominal and pelvic swelling, mass and lump; A41.9 Sepsis, unspecified organism

== ENCOUNTER 2020-01-29 22:35 | Inpatient (IN) ==
[2020-01-29] MEDS ORDERED: SODIUM CHLORIDE 0.9% 1000ML 1,000 ML IV ONE (23:09)
[2020-01-29] MEDS ORDERED: KETOROLAC TROMETHAMINE 15 MG/ML VIAL IV STA (23:09)
[2020-01-29] MEDS ORDERED: ONDANSETRON INJ 2 MG/ML 2 ML VIAL IV STA (23:09)
[2020-01-29 23:20] LABS: Basophils # (auto) 0.03 K/uL (0-0.2); Basophils % (auto) 0.2 %; Eosinophils # (auto) 0.22 K/uL (0-0.5); Eosinophils % (auto) 1.6 %; Hematocrit (blood only) 43.8 % (37-47); Hemoglobin 14.9 g/dL (12.0-16.0); Immature Granulocytes # (auto) 0.02 K/uL (0.00-0.02); Immature Granulocytes % (auto) 0.1 %; Lymphocytes # (auto) 3.22 K/uL (1.2-3.4); Lymphocytes % (auto) 23.2 %; Mean Corpuscular Hemoglobin 30.1 pg (25-34); Mean Corpuscular Volume 88.5 fL (80-100); Mean Platelet Volume 10.7 fL (7.4-10.4); Monocytes # (auto) 1.17 K/uL (0.11-0.59); Monocytes % (auto) 8.4 %; Neutrophils # (auto) 9.21 K/uL (1.4-6.5); Neutrophils % (auto) 66.5 %; Platelet Count 251 K/uL (130-400); RDW Coefficient of Variation 12.9 % (11.5-14.5); RDW Standard Deviation 41.8 fL (36.4-46.3); Red Blood Count 4.95 M/uL (4.2-5.4); White Blood Count 13.87 K/uL (4.8-10.8)
[2020-01-29 23:38] LABS: Albumin Level 3.7 gm/dl (3.4-5.0); BUN Creatinine Ratio 13.4 (10-20); Calcium 8.8 mg/dl (8.5-10.1); Creatinine Clr Calc Pharmacy 109.4 ml/min; Est GFR (African American) 94.9; Est GFR (Non-African American) 81.9; Potassium 3.6 mmol/L (3.5-5.1)
[2020-01-29 23:41] LABS: Bilirubin,Total 0.3 mg/dl (0.2-1); Globulin 3.7 gm/dl (2.5-4.0); Total Protein 7.4 gm/dl (6.4-8.2)
[2020-01-29 23:56] LABS: Appearance Urine Clear (Clear); Bacteria Urine Automated Negative (Negative); Bilirubin Urine Negative (Negative); Blood Urine 3+ (Negative); Color Urine Yellow; Epithelial Cell Urine Auto 20-30 /lpf (0-5); Glucose Urine UA Negative (Negative); Ketones Urine Negative (Negative); Leukocyte Esterase Urine Trace (Negative); Nitrite Urine Negative (Negative); Protein Urine Negative (Negative); RBC Urine Automated >30 /hpf (0-4); Specific Gravity Urine 1.021 (1.000-1.030); Urobilinogen Urine Negative (Negative)
[2020-01-30] MEDS ORDERED: HYDROmorphone INJ 1 MG/ML SYRINGE IV STA (00:18)
--- NOTE | 2020-01-30 00:24 | Emergency Department Note ---
History of Present Illness General Chief complaint: Kidney Stone Stated complaint: L SIDED ABD PAIN, NAUSEA, VOMITING Time Seen by Provider: 01/29/20 22:42 Source: patient Mode of arrival: ambulatory Limitations: no limitations History of Present Illness Maximum Pain Intensity: 7 This patient is a 29-year-old female who presents to the emergency department for evaluation of left-sided abdominal pain which started this afternoon. She reports that she has had severe left abdominal/flank pain, nausea/vomiting and dysuria which has worsened over the past 4 to 5 hours. She rates her current pain a 9/10. She does report a remote history of kidney stones but has not had one in many years. She was recently admitted for pyelonephritis/sepsis. She also has a history of dermoid cysts with removal. Patient has not taken medication at home prior to arrival. Home Medications Medication Instructions Recorded Confirmed Type Linzess 145 mcg PO QAM 10/04/19 01/29/20 History albuterol sulfate 1 inh INHALATION QID PRN 10/04/19 01/29/20 History omeprazole magnesium [Prilosec OTC] 20 mg PO QPM 10/27/19 01/30/20 History fluticasone propionate 1 spray INTRANASAL DAILY 01/01/20 01/29/20 History multivitamin 1 tab PO DAILY 01/01/20 01/29/20 History sertraline 50 mg PO HS 01/29/20 01/29/20 History ibuprofen 400 mg PO Q6H PRN 01/30/20 01/30/20 History Allergies Allergy/AdvReac Type Severity Reaction Status Date / Time adhesive Allergy Mild HIVES Verified 01/29/20 23:18 kiwi Allergy Mild tongue Verified 01/29/20 23:18 feels thick and hairy nickel Allergy Mild blisters Verified 01/29/20 23:18 Past Med/Surg History Medical History Adnexal mass Alopecia Anxiety Asthma rarely uses PRN inh, ~ once per month Autoimmune disorder Annuloma granulari, 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 Still does have palpitations occasionally, feels r/t anxiety. Temporomandibular joint disorder (TMJ) Jaw does lock sometimes but just gets a little bit stuck, has to be popped back. Surgical History History of cardiac radiofrequency ablation Pt reports they did not find anything to ablate. History of section History of cystoscopy w/ stent placement History of esophagogastroduodenoscopy (EGD) History of lithotripsy x 2 History of right salpingo-oophorectomy History of tonsillectomy History of wisdom tooth extraction Family History Grandmother (Paternal) No problems noted. Grandmother (Maternal) Slow to wake up after anesthesia Diabetes Father Colon cancer Social History Smoking Status: Never smoker Second Hand Exposure: Yes; Do You Dip or Chew Tobacco: No; Tobacco Cessation Education Requested by Patient: No Hx Alcohol Use: Yes Alcohol type: wine Hx Substance Use: No Preferred Language: Polish Communication Ability: Effective Floral Designer Required: No Beliefs That Will Affect Care: None Current Living Situation: Spouse Feels Safe at Home: Yes Assistive Devices: Glasses Review of Systems A total of 10 systems reviewed and were otherwise negative Physical Exam Vital Signs Vital Signs - 24 hr 01/29/20 22:37 01/30/20 00:25 01/30/20 01:32 Temperature 36.6 C Temperature Source Oral Pulse Rate 115 H Pulse Rate [Finger] 97 H 100 H Respiratory Rate 20 18 18 Respiratory Depth Normal Normal Blood Pressure 159/99 H Blood Pressure [Right Arm] 135/89 130/83 Blood Pressure Mean 119 Blood Pressure Mean [Right Arm] 104 98 Blood Pressure Position Sitting Pulse Oximetry 98 96 95 Oxygen Delivery Method Room Air Room Air Room Air Sepsis Recent Fever Within 48 Hours No Sepsis New/Unexplained Change in Mental Status No Sepsis Action Taken by Nursing No Action Required VITALS: Vitals are noted on the nurse's note and reviewed by myself. GENERAL: This is a 29-year-old female, uncomfortable appearing, pacing around the room, well-developed well-nourished. SKIN: The skin was without rashes. EARS: External auditory canals clear, tympanic membranes pearly brink without erythema or effusion bilaterally. EYES: Pupils equal round and reactive to light and accommodation. MOUTH: Mucous membranes moist. Tonsils are not enlarged. Pharynx without erythema or exudate. NECK: Supple without nuchal rigidity. No lymphadenopathy. HEART: Regular rate and rhythm without murmurs gallops or rubs. LUNGS: Clear to auscultation bilaterally without wheezes, rales or rhonchi. ABDOMEN: Positive bowel sounds x 4. Soft, moderate tenderness to palpation in the left lower quadrant. Left CVA tenderness. No guarding or rebound tenderness. NEURO: Patient was alert and oriented to person place and time. Course Reevaluation(s) Reevaluation #1: Patient was reevaluated and is not feeling much better after the Toradol. A dose of Dilaudid was ordered. Consultations Consultation #1: [facility] hospitalist Administered Medications Fluticasone Propionate (Fluticasone Propionate Na Spr 16 Gm Btl) 1 sprays NA DAILY [facility] Stop: 02/29/20 08:59 Last Admin: 01/30/20 09:27 Dose: Not Given Documented by: [id number] Hydromorphone HCl (Hydromorphone Inj 0.5 Mg/0.5 Ml Syr) 0.5 mg IV Q3H PRN PRN Reason: Pain Stop: 02/13/20 03:24 Last Admin: 01/30/20 10:21 Dose: 0.5 mg Documented by: [id number] Admin: 01/30/20 04:41 Dose: 0.5 mg Documented by: [id number] Metronidazole (Flagyl) 500 mg in 100 mls @ 100 mls/hr IV Q8H [facility] Stop: 02/09/20 10:29 Last Infusion: 01/30/20 15:06 Dose: 0 mls/hr Documented by: [id number] Admin: 01/30/20 10:58 Dose: 100 mls/hr Documented by: [id number] Lactated Ringer's (Lr) 1,000 mls @ 80 mls/hr IV .[id number] [facility] Stop: 02/29/20 14:50 Last Admin: 01/30/20 14:51 Dose: 80 mls/hr Documented by: [id number] Miscellaneous (Linaclotide [Linzess]: Order Awaiting Action) 1 ea N/A QS [facility] Stop: 02/29/20 07:59 Last Admin: 01/30/20 16:46 Dose: Not Given Documented by: [id number] Admin: 01/30/20 09:27 Dose: Not Given Documented by: [id number] Multivitamins (Multivitamin Tab) 1 tab PO DAILY [facility] Stop: 02/29/20 08:59 Last Admin: 01/30/20 09:27 Dose: Not Given Documented by: [id number] Discontinued Medications Bacitracin (Bacitracin Oint 15 Gm Tube) Confirm Administered Dose 45 appln .ROUTE .STK-MED [facility] Stop: 01/30/20 12:10 Last Admin: 01/30/20 13:30 Dose: 1 appln Documented by: [id number] Bupivacaine HCl (Bupivacaine 0.5 % 5 Mg/1 Ml Mpf 30ml Vial) Confirm Administered Dose 30 ml .ROUTE .STK-MED [facility] Stop: 01/30/20 12:10 Last Admin: 01/30/20 13:31 Dose: 22 ml Documented by: [id number] Hydromorphone HCl (Hydromorphone Inj 1 Mg/Ml Syringe) 1 mg IV NOW STA Stop: 01/30/20 00:19 Last Admin: 01/30/20 00:24 Dose: 1 mg Documented by: [id number] Hydromorphone HCl (Hydromorphone Inj 0.5 Mg/0.5 Ml Syr) 0.5 mg IV NOW STA Stop: 01/30/20 05:31 Last Admin: 01/30/20 06:03 Dose: 0.5 mg Documented by: [id number] Sodium Chloride (Nss 1000ml) 1,000 mls @ 999 mls/hr IV .Q1H1M ONE Stop: 01/30/20 00:09 Last Infusion: 01/30/20 00:16 Dose: 0 mls/hr Documented by: [id number] Admin: 01/29/20 23:15 Dose: 999 mls/hr Documented by: [id number] Sodium Chloride (Nss 1000ml) 1,000 mls @ 125 mls/hr IV .Q8H [facility] Stop: 02/29/20 03:24 Last Admin: 01/30/20 15:06 Dose: Not Given Documented by: [id number] Infusion: 01/30/20 15:06 Dose: 0 mls/hr Documented by: [id number] Admin: 01/30/20 04:41 Dose: 125 mls/hr Documented by: [id number] Ceftriaxone Sodium 2,000 mg/ (Dextrose) 70 mls @ 100 mls/hr IV Q24H [facility]; Protocol Stop: 02/09/20 04:59 Last Infusion: 01/30/20 06:28 Dose: 0 mls/hr Documented by: [id number] Admin: 01/30/20 05:24 Dose: 100 mls/hr Documented by: [id number] Piperacillin Sod/Tazobactam (Sod 4.5 gm/ Dextrose) 120 mls @ 200 mls/hr IV NOW ONE; Protocol Stop: 01/30/20 10:20 Last Infusion: 01/30/20 10:19 Dose: 0 mls/hr Documented by: [id number] Admin: 01/30/20 09:55 Dose: 200 mls/hr Documented by: [id number] Cefoxitin Sodium 2,000 mg/ (Dextrose) 60 mls @ 100 mls/hr IV NOW STA Stop: 01/30/20 10:54 Last Infusion: 01/30/20 15:06 Dose: 0 mls/hr Documented by: [id number] Admin: 01/30/20 12:13 Dose: 100 mls/hr Documented by: [id number] Ketorolac Tromethamine (Ketorolac Tromethamine 15 Mg/Ml Vial) 15 mg IV NOW STA Stop: 01/29/20 23:10 Last Admin: 01/29/20 23:15 Dose: 15 mg Documented by: [id number] Ketorolac Tromethamine (Ketorolac 30 Mg/Ml Vial) 30 mg IV Q6H PRN PRN Reason: Pain Stop: 02/04/20 05:29 Last Admin: 01/30/20 08:22 Dose: 30 mg Documented by: [id number] Lidocaine HCl (Lidocaine Hcl 1% 20 Ml Vial) Confirm Administered Dose 20 ml .ROUTE .STK-MED ONE Stop: 01/30/20 12:10 Last Admin: 01/30/20 13:31 Dose: 22 ml Documented by: [id number] Ondansetron HCl (Ondansetron Inj 2 Mg/Ml 2 Ml Vial) 4 mg IV NOW STA Stop: 01/29/20 23:10 Last Admin: 01/29/20 23:15 Dose: 4 mg Documented by: [id number] Medical Decision Making Differential Diagnosis Differential diagnosis includes renal calculus, pyelonephritis, musculoskeletal pain, ruptured AAA, aortic dissection, diverticulitis, perforated viscus, bowel obstruction, biliary pathology, pancreatitis, PE, pneumonia, pneumothorax, trauma, herpes zoster, malignancy, among others. Medical Records Attestation: I reviewed the patient's medical records. Home Medications Current Medication List: was personally reviewed by me Laboratory Data Attestation: I reviewed the patient's lab results. Result diagrams: 01/30/20 06:55 01/30/20 06:55 Lab Results 01/29/20 01/29/20 01/29/20 Range/Units 23:10 23:10 23:45 WBC 13.87 H (4.8-10.8) K/uL RBC 4.95 (4.2-5.4) M/uL Hgb 14.9 (12.0-16.0) g/dL Hct 43.8 (37-47) % MCV 88.5 (80-100) fL MCH 30.1 (25-34) pg MCHC 34.0 (32-36) g/dL RDW Std Deviation 41.8 (36.4-46.3) fL RDW Coeff of Kahlil 12.9 (11.5-14.5) % Plt Count 251 (130-400) K/uL MPV 10.7 H (7.4-10.4) fL Immature Gran % (Auto) 0.1 % Neut % (Auto) 66.5 % Lymph % (Auto) 23.2 % [place] % (Auto) 8.4 % Eos % (Auto) 1.6 % Baso % (Auto) 0.2 % Neut # (Auto) 9.21 H (1.4-6.5) K/uL Lymph # (Auto) 3.22 (1.2-3.4) K/uL Bladen # (Auto) 1.17 H (0.11-0.59) K/uL Eos # (Auto) 0.22 (0-0.5) K/uL Baso # (Auto) 0.03 (0-0.2) K/uL Immature Gran # (Auto) 0.02 (0.00-0.02) K/uL Sodium 137 (136-145) mmol/L Potassium 3.6 (3.5-5.1) mmol/L Chloride 106 (98-107) mmol/L Carbon Dioxide 27 (21-32) mmol/L Anion Gap 4.0 (3-11) BUN 12 (7-18) mg/dl Creatinine 0.93 (0.6-1.2) mg/dl Est Cr Clr Drug Dosing 109.4 ml/min Est GFR ( Amer) 94.9 Est GFR (Non-Af Amer) 81.9 BUN/Creatinine Ratio 13.4 (10-20) Glucose 108 H (70-99) mg/dl Calcium 8.8 (8.5-10.1) mg/dl Total Bilirubin 0.3 (0.2-1) mg/dl AST 39 H (15-37) U/L ALT 77 (12-78) U/L Alkaline Phosphatase 97 (45-117) U/L Total Protein 7.4 (6.4-8.2) gm/dl Albumin 3.7 (3.4-5.0) gm/dl Globulin 3.7 (2.5-4.0) gm/dl Albumin/Globulin Ratio 1.0 (0.9-2) Urine Color Yellow Urine Appearance Clear (Clear) Urine pH 6.0 (4.5-7.5) Ur Specific [place] 1.021 (1.000-1.030) Urine Protein Negative (Negative) Urine Glucose (UA) Negative (Negative) Urine Ketones Negative (Negative) Urine Blood 3+ H (Negative) Urine Nitrite Negative (Negative) Urine Bilirubin Negative (Negative) Urine Urobilinogen Negative (Negative) Ur Leukocyte Esterase Trace H (Negative) Urine WBC (Auto) 1-5 (0-5) /hpf Urine RBC (Auto) >30 H (0-4) /hpf U Hyaline Cast (Auto) 1-5 (0-5) /lpf U Epithel Cells (Auto) 20-30 H (0-5) /lpf Urine Bacteria (Auto) Negative (Negative) POC Ur Test (NEG) 01/29/20 Range/Units 23:45 WBC (4.8-10.8) K/uL RBC (4.2-5.4) M/uL Hgb (12.0-16.0) g/dL Hct (37-47) % MCV (80-100) fL MCH (25-34) pg MCHC (32-36) g/dL RDW Std Deviation (36.4-46.3) fL RDW Coeff of Kahlil (11.5-14.5) % Plt Count (130-400) K/uL MPV (7.4-10.4) fL Immature Gran % (Auto) % Neut % (Auto) % Lymph % (Auto) % [place] % (Auto) % Eos % (Auto) % Baso % (Auto) % Neut # (Auto) (1.4-6.5) K/uL Lymph # (Auto) (1.2-3.4) K/uL [place] # (Auto) (0.11-0.59) K/uL Eos # (Auto) (0-0.5) K/uL Baso # (Auto) (0-0.2) K/uL Immature Gran # (Auto) (0.00-0.02) K/uL Sodium (136-145) mmol/L Potassium (3.5-5.1) mmol/L Chloride (98-107) mmol/L Carbon Dioxide (21-32) mmol/L Anion Gap (3-11) BUN (7-18) mg/dl Creatinine (0.6-1.2) mg/dl Est Cr Clr Drug Dosing ml/min Est GFR ( Amer) Est GFR (Non-Af Amer) BUN/Creatinine Ratio (10-20) Glucose (70-99) mg/dl Calcium (8.5-10.1) mg/dl Total Bilirubin (0.2-1) mg/dl AST (15-37) U/L ALT (12-78) U/L Alkaline Phosphatase (45-117) U/L Total Protein (6.4-8.2) gm/dl Albumin (3.4-5.0) gm/dl Globulin (2.5-4.0) gm/dl Albumin/Globulin Ratio (0.9-2) Urine Color Urine Appearance (Clear) Urine pH (4.5-7.5) Ur Specific [place] (1.000-1.030) Urine Protein (Negative) Urine Glucose (UA) (Negative) Urine Ketones (Negative) Urine Blood (Negative) Urine Nitrite (Negative) Urine Bilirubin (Negative) Urine Urobilinogen (Negative) Ur Leukocyte Esterase (Negative) Urine WBC (Auto) (0-5) /hpf Urine RBC (Auto) (0-4) /hpf U Hyaline Cast (Auto) (0-5) /lpf U Epithel Cells (Auto) (0-5) /lpf Urine Bacteria (Auto) (Negative) POC Ur Test NEG (NEG) Imaging Data Attestation: I personally reviewed and interpreted this imaging study as follows: Radiologist's Impression: CT ABDOMEN & PELVIS Without Contrast: Comparison is made to CT abdomen/pelvis on 06/15/2011. 8 mm stone in the proximal left ureter just beyond the left UPJ. Mild left hydronephrosis. Left perinephric fat stranding. Small nonobstructing right renal stone. No hydronephrosis or ureteral stone. Prominence of the wall of the bladder is likely secondary to decompression. Please correlate with urinalysis if concerned for cystitis. Normal appendix. No bowel obstruction. Prominence of the chou of the colon is likely secondary to under distention. Small hiatal hernia. Hepatic steatosis. Splenule. Small fat-containing umbilical hernia. Radiologist: Savage Grimes M.D. MDM Narrative The patient is a 29-year-old female who presents today complaining of left flank pain. Labs revealed a leukocytosis of 13,000, no anemia or concerning electrolyte abnormalities. Urinalysis was not suggestive of infection. Urine test was negative. A CT scan shows an 8 mm proximal left ureteral stone. Patient treated with Toradol, Zofran, fluids and Dilaudid. Patient's pain poorly controlled and I suspect she will not be able to pass the stone on her own. [facility] care. Impression & Plan Calculus of proximal ureter Discharge Plan Visit Data Chief Complaint: Kidney Stone Stated Complaint: L SIDED ABD PAIN, NAUSEA, VOMITING ED Provider: Narciso Johnston ED Midlevel Provider: Carola Song Discharge Problem: Calculus of proximal ureter Patient Disposition: Admitted As Inpatient Discharge Instructions Interventions: ED Discharge Assessment Last Done: 01/30/20 03:12
[2020-01-30] MEDS ORDERED: ALBUTEROL HFA 8 GM INHALER INH PRN (03:25)
[2020-01-30] MEDS ORDERED: ONDANSETRON INJ 2 MG/ML 2 ML VIAL IV PRN ×2 (03:25→12:04)
[2020-01-30] MEDS ORDERED: ACETAMINOPHEN 325 MG TAB PO PRN (03:25)
[2020-01-30] MEDS ORDERED: INFLUENZA VACCINE HIGH DOSE 65+ 0.7 ML SYR IM ONE (03:50)
[2020-01-30] MEDS: SODIUM CHLORIDE 0.9% 1000ML 1,000 ML IV SCH ×2 (04:41→15:06)
[2020-01-30] MEDS: HYDROmorphone INJ 0.5 MG/0.5 ML SYR IV PRN ×2 (04:41→10:21)
[2020-01-30] MEDS ORDERED: cefTRIAXone SODIUM 2,000 MG in DEXTROSE 5% 50 ML IV SCH (05:00)
[2020-01-30] MEDS ORDERED: INFLUENZA ADMINISTRATION CHARGE ONE (05:15)
[2020-01-30] MEDS ORDERED: KETOROLAC 30 MG/ML VIAL IV PRN (05:30)
[2020-01-30] MEDS ORDERED: HYDROmorphone INJ 0.5 MG/0.5 ML SYR IV STA (05:30)
--- NOTE | 2020-01-30 05:57 | History and Physical Report ---
DATE OF ADMISSION: 01/30/2020 CHIEF COMPLAINT: Left flank pain. HISTORY OF PRESENT ILLNESS: A 29-year-old female with past medical history significant for exercise-induced bronchospasm, history of paroxysmal supraventricular tachycardia, history of alopecia, history of migraines, history of varicella without complications, generalized anxiety disorder, history of depression. The patient was recently in the hospital with sepsis and pyelonephritis, treated with Rocephin and also with Cipro, was discharged on 01/04/2020. In September of 2019, she underwent laparoscopic removal of 7 cm left adenoid dermoid cyst. In last admission and again she was found to have complex cystic mass in the left adnexa measuring 6.4 x 4.1 cm and she has followup appointment with card checker on 02/05/2020. The patient has kidney stones in the past. She started having left flank pain, severe in nature, radiated to the left lower abdomen associated with nausea, which prompted her to come to the ER and imaging studies showing 8 mm stone in the proximal left ureter just beyond the left UPJ and mild left hydronephrosis. Currently, pain under control with pain medication, resting comfortably and hemodynamically stable. Denies any chest pain, no shortness of breath, no cough, no headache, no blurred vision, no earache, no runny nose, no sore throat. Currently, no nausea, no abdominal pain. Normal bowel and bladder movements. ALLERGIES: ADHESIVE TAPE, KIWI EXTRACT. PAST MEDICAL HISTORY: As mentioned above. PAST SURGICAL HISTORY: , dilatation and curettage, EGDs, exploration of the abdomen, lithotripsy, laparoscopic salpingectomy and oophorectomy, wisdom tooth extraction, throat surgery, recent laparoscopic removal of the 7 cm left adnexal dermoid cyst. MEDICATIONS: The patient currently on albuterol inhalation 2 q.i.d. p.r.n., Flonase 1 spray intranasal daily p.r.n., ibuprofen 400 mg p.o. q. 6 hours p.r.n., Linzess 145 mcg p.o. a.m., multivitamin 1 tablet daily, omeprazole 20 mg p.o. p.m., sertraline 50 mg p.o. at bedtime. FAMILY HISTORY: Significant for mother had hypertension, uncle had colon cancer. Paternal grandmother had Alzheimer's disease and diabetes. Maternal grandmother has heart disorder and diabetes. SOCIAL HISTORY: . No smoking, no alcohol, no drug use. REVIEW OF SYMPTOMS: As per HPI. Rest of review of symptoms negative. PHYSICAL EXAMINATION: GENERAL: The patient is obese, not in acute distress. VITAL SIGNS: Temperature 36.6, pulse 92, respiratory rate 18, blood pressure 124/78, oxygen 96% room air. HEENT: Pupils equal, round, reactive to light. Oral mucosa moist. NECK: Supple, no neck masses seen. CARDIOVASCULAR: S1, S2 heard, regular rate and rhythm, no murmur, no gallop. RESPIRATORY SYSTEM: Normal AP diameter. No accessory muscle use. No wheezing, no crackles. ABDOMEN: Soft, bowel sounds present. Left CVA tenderness present. Left abdominal discomfort present. No distention. CENTRAL NERVOUS SYSTEM: Cranial nerves II-XII grossly intact. Nonfocal. EXTREMITIES: No edema, no erythema. LABORATORY DATA: WBC 13.8, hemoglobin 14.9, hematocrit 43.8, platelets 251. Sodium 137, potassium 3.6, chloride 106, bicarbonate 27, BUN 12, creatinine 0.9, serum glucose 108, calcium 8.8, total bilirubin 0.3, AST 39, ALT 37, alkaline phosphatase 97. Urinalysis, trace leukocyte esterase positive. Point of care test negative. CT of the abdomen and pelvis is showing 8 mm left UPJ junction kidney stone with mild left hydronephrosis. ASSESSMENT AND PLAN: This is a 29-year-old female who presents with left renal colic. 1. Left renal colic. Found to have left UPJ junction 8 mm stone with mild hydronephrosis, possible urinary tract infection. We will follow the cultures. Empiric Rocephin, fluids, IV fluids, IV pain medications p.r.n., Consult urology in the a.m. for further recommendations. 2. Adnexal mass complex cystic mass in the left adnexal region about cm. Recently, in 09/2019 she had abdominal laparoscopy with removal of large left complex dermoid cyst. She has an appointment with [facility] on 02/05/2020. 3. Irritable bowel syndrome. Continue Linzess. 4. Gastroesophageal reflux disease. Continue PPI. 5. Anxiety. Continue Zoloft. 6. Deep venous thrombosis prophylaxis, sequential compression devices for now. 7. Disposition: Admit to medical floor. Expect discharge home and follow with family doctor. Level 1 full code. Addendum: Final Ct scan report also mentioning mild appendicitis. Changed antibiotic to Iv zosyn. Consulted and notified General surgery- going to see the patient. TOM
--- NOTE | 2020-01-30 07:30 | CT Scan Report ---
CT SCAN OF THE ABDOMEN AND PELVIS WITHOUT IV CONTRAST CLINICAL HISTORY: Left-sided abdominal pain. COMPARISON STUDY: Abdominal CT dated 06/15/2011. TECHNIQUE: CT scan of the abdomen and pelvis is performed from the lung bases to the proximal femora. Images are reviewed in the axial, sagittal, and coronal planes. IV contrast was not administered for this examination. A dose lowering technique was utilized adhering to the principles of ALARA. CT DOSE: 1635.33 mGy.cm FINDINGS: Lung bases: The heart is normal in size and without pericardial effusion. The lung bases are clear. Liver: The unenhanced liver is top normal in size. The liver demonstrates diminished attenuation cons istent with mild steatosis. Fatty sparing is seen adjacent to gallbladder fossa. There is no intrahep atic biliary ductal dilatation. Gallbladder: Unremarkable. Spleen: Normal in size and attenuation. Pancreas: Unremarkable. Adrenal glands: Unremarkable. Kidneys: The unenhanced kidneys are normal in size. The left kidney is edematous. There is a 9 mm obs tructing calculus in the left proximal ureter seen on image #231. This is located just below the uret eropelvic junction and causes [id number] left-sided hydronephrosis. Additional punctate nonobst ructing calculus is seen in the left kidney. A 4 mm nonobstructing calculus is seen in the right kidn ey. There is no right-sided hydronephrosis. There is no evidence of contour deforming renal mass lesi on. Abdominal vasculature: The abdominal aorta is normal in course and caliber. Bowel: The small bowel and colon are normal in course and caliber. The appendix is distended and flu id-filled measuring up to 10 mm in diameter as seen on image #323. The appendiceal wall is mildly thi ckened there is faint periappendiceal inflammation. No organized fluid collection is identified. Peritoneum: There is no intraperitoneal free air or abdominal ascites. There is a fat-containing umbi lical hernia. Postoperative change is suggested in the left ventral pelvic wall. Lymphadenopathy: None. Pelvic viscera: The bladder is decompressed and grossly unremarkable. The uterus is normal as imaged. Follicles are seen in the left ovary. Skeletal structures: No lytic or blastic lesions are seen. IMPRESSION: 1. There is a 9 mm obstructing calculus in the left proximal ureter. This causes moderate left hydron ephrosis. 2. Additional bilateral nonobstructing renal calculi as above. 3. Findings are consistent with mild appendicitis. 4. There is no evidence of abscess or perforation. 5. Mild hepatic steatosis. Findings of appendicitis were called to the emergency department on 01/30/2020 at 07:28. ACT 112: Negative or not required by law. Electronically signed by: Freddie Coley M.D. 01/30/2020 7:29 AM
[2020-01-30 07:51] LABS: Basophils # (auto) 0.02 K/uL (0-0.2); Basophils % (auto) 0.2 %; Eosinophils % (auto) 0.8 %; Hematocrit (blood only) 39.7 % (37-47); Hemoglobin 13.7 g/dL (12.0-16.0); Immature Granulocytes # (auto) 0.02 K/uL (0.00-0.02); Immature Granulocytes % (auto) 0.2 %; Lymphocytes # (auto) 2.87 K/uL (1.2-3.4); Lymphocytes % (auto) 22.3 %; Mean Corpuscular Hemoglobin 30.9 pg (25-34); Mean Corpuscular Hgb Conc 34.5 g/dL (32-36); Mean Corpuscular Volume 89.4 fL (80-100); Mean Platelet Volume 11.3 fL (7.4-10.4); Monocytes # (auto) 1.22 K/uL (0.11-0.59); Monocytes % (auto) 9.5 %; Neutrophils # (auto) 8.66 K/uL (1.4-6.5); Platelet Count 193 K/uL (130-400); RDW Standard Deviation 42.4 fL (36.4-46.3); Red Blood Count 4.44 M/uL (4.2-5.4); White Blood Count 12.89 K/uL (4.8-10.8)
[2020-01-30] MEDS ORDERED: PIPERACILL/TAZOBAC CONSULT ACTIVE PRN (07:55)
--- NOTE | 2020-01-30 07:56 | Urology Consultation ---
Date of Consultation January 30, 2020 Assessment & Plan (1) Calculus of proximal ureter: (2) Left flank pain: 29 year-old female patient, with multiple comorbidities including recent hospital admission for pyelonephritis, admitted with left flank pain and nausea/vomiting secondary to obstructing 8 mm left proximal ureteral calculus. -Patient afebrile. -Labs reviewed - mild elevation of white count, creatinine stable. -Keep NPO. -Strain all urine. -Consult in place for general surgery regarding possible appendicitis - no reports of right-sided abdominal pain and no tenderness to palpation. Findings reviewed with Dr. Zaragoza. Given her intractable left-sided flank/abdominal pain with associated nausea/vomiting in the context of an obstructing 8 mm left proximal ureteral stone, will proceed with OR for cystoscopy, left retrograde pyelogram and left stent placement, possible u reteroscopy, laser lithotripsy, stone basketing, possible ureteral dilation depending on findings. Risks and benefits of procedure discussed and to be reviewed with patient by Dr. Zaragoza. OR notified. COVID-19 test pending. Patient covered preoperatively with IV Ceftriaxone. Supervising Physician Co-Signing Physician Notes agree with above assessment - she has been seen by gen surg and will be having an appendectomy today - to avoid complications - we will limit our procedure to cystoscopy and left ureteral stent placement History of Present Illness Reason for Consultation: Left proximal ureteral stone Attending Physician: Clayton Bedoya MD History of Present Illness A 29-year-old female patient, with past medical history significant for exercise-induced bronchospasm, history of paroxysmal supraventricular tachycardia (followed with cardiology in 2018), history of alopecia, migraines, generalized anxiety disorder and depression, presented to the hospital with complaints of left flank/abdominal pain with associated nausea/vomiting that began yesterday afternoon. Past medical and surgical history reviewed. Patient was recently admitted to [facility] 01/01-01/03 secondary to acute pyelonephritis. Outpatient urine culture 12/31 per chart positive for pansensitive E.Coli. Did receive IV Rocephin during hospital stay and was discharged home with 5 day course of Ciprofloxacin. In addition, she also underwent laparoscopic removal of 7 cm left adenoid dermoid cyst in September 2019 - follows closely with [facility]. Urology consulted due to obstructing left proximal ureteral calculus. Patient known to [facility] urology service, has required surgical intervention x2 in the past including emergent stent placement with subsequent ESWL. Denies first degree relative with history of kidney stones. Chart review: Afebrile Wbc 12.89 Hgb 13.7 Creatinine 1.04 Urinalysis with trace leukocytes, 1-5 wbc, >30 rbc, negative nitrates, negative bacteria. Urine culture pending. Currently ordered IV Ceftriaxone, last dose 0520 this morning. Imaging - CT abd/pelvis without contrast: 1. There is a 9 mm obstructing calculus in the left proximal ureter. This causes moderate left hydronephrosis. 2. Additional bilateral nonobstructing renal calculi. 3. Findings are consistent with mild appendicitis. 4. There is no evidence of abscess or perforation. 5. Mild hepatic steatosis. Patient examined this morning, awake, and non-toxic on exam. Reports she continues to have left lower abdominal discomfort and left flank pain. She denies any right lower quadrant or right flank pain. Did require IV Dilaudid for pain this morning. Reports she has not vomited since last evening. Does continue to have intermittent nausea. Reports dysuria. Denies hematuria, frequency, or urgency. Denies fevers or chills. Has been straining urine - no known passage of stone since admission. Has not had anything to eat or drink since last evening. She did tolerate stent in the past with minimal discomfort. She is requesting surgical intervention for stone today. Denies additional urologic concerns today. Allergies Allergy/AdvReac Type Severity Reaction Status Date / Time adhesive Allergy Mild HIVES Verified 01/29/20 23:18 kiwi Allergy Mild tongue Verified 01/29/20 23:18 feels thick and hairy nickel Allergy Mild blisters Verified 01/29/20 23:18 Home Medications Medication Instructions Recorded Confirmed Type Linzess 145 mcg PO QAM 10/04/19 01/29/20 History albuterol sulfate 1 inh INHALATION QID PRN 10/04/19 01/29/20 History omeprazole magnesium [Prilosec OTC] 20 mg PO QPM 10/27/19 01/30/20 History fluticasone propionate 1 spray INTRANASAL DAILY 01/01/20 01/29/20 History multivitamin 1 tab PO DAILY 01/01/20 01/29/20 History sertraline 50 mg PO HS 01/29/20 01/29/20 History ibuprofen 400 mg PO Q6H PRN 01/30/20 01/30/20 History Patient History Medical History Adnexal mass Alopecia Anxiety Asthma rarely uses PRN inh, ~ once per month Autoimmune disorder Annuloma granulari, 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 Still does have palpitations occasionally, feels r/t anxiety. Temporomandibular joint disorder (TMJ) Jaw does lock sometimes but just gets a little bit stuck, has to be popped back. Surgical History History of cardiac radiofrequency ablation Pt reports they did not find anything to ablate. History of section History of cystoscopy w/ stent placement History of esophagogastroduodenoscopy (EGD) History of lithotripsy x 2 History of right salpingo-oophorectomy History of tonsillectomy History of wisdom tooth extraction Family History Grandmother (Paternal) No problems noted. Grandmother (Maternal) Slow to wake up after anesthesia Diabetes Father Colon cancer Social History Smoking Status: Never smoker Second Hand Exposure: Yes; Do You Dip or Chew Tobacco: No; Tobacco Cessation Education Requested by Patient: No Hx Alcohol Use: Yes Alcohol type: wine Hx Substance Use: No Preferred Language: Tanzanian Communication Ability: Effective Ethylene Compressor Operator Required: No Beliefs That Will Affect Care: None Current Living Situation: Spouse Feels Safe at Home: Yes Assistive Devices: Glasses Review of Systems Constitutional: as per Subjective / HPI; no fever and no chills Eyes: no problem reported Ear, Nose, Mouth, Throat: no dizziness Respiratory: no cough and no dyspnea Cardiovascular: no chest pain and no edema Gastrointestinal: as per Subjective / HPI Genitourinary: as per Subjective / HPI Musculoskeletal: as per Subjective / HPI Neurologic: no dizziness Psychiatric: + anxiety Endocrine: no fatigue Hematologic / Lymphatic: no easy bleeding and no easy bruising Physical Exam Constitutional: well developed and well nourished; no acute distress and not ill appearing ENMT: Ears: no external ear abnormality Nose: no external nose abnormality Neck: normal visual inspection and trachea midline Respiratory: normal respiratory effort and able to speak in complete sentences; no respiratory distress and no audible wheezes Cardiovascular: Extremities: no calf tenderness and no edema Gastrointestinal (Abdomen): Inspection/Auscultation: abdomen normal to inspection; abdomen not distended Percussion/Palpation: abdomen soft; abdomen nontender and no guarding Musculoskeletal: Moves all extremities without difficulty. Skin: No visible rashes, lesions, or wounds noted. Neurologic: moves all extremities and awake Psychiatric: Orientation: alert, oriented x 3 and cooperative Affect: euthymic affect Genitourinary: no CVA tenderness Results & Data ([facility]) Vital Signs (Past 12 Hours) Vital Signs Temp Pulse Pulse Resp BP BP BP 01/30/20 07:21 36.7 C 89 20 113/73 01/30/20 04:10 37.0 C 103 H 22 168/99 H 01/30/20 03:06 92 H 18 124/78 01/30/20 01:32 100 H 18 130/83 01/30/20 00:25 97 H 18 135/89 01/29/20 22:37 36.6 C 115 H 20 159/99 H Pulse Ox 01/30/20 07:21 95 01/30/20 04:10 96 01/30/20 03:06 96 01/30/20 01:32 95 01/30/20 00:25 96 01/29/20 22:37 98 PG Care Time/CCT Total # of Minutes Spent Total Time Spent with Patient: Total time spent is greater than 50% in coordination of care (as documented) at patient's floor/unit and/or counseling patient: Coding Level of Care Code 48060 Inpt Consult Level 4 Diagnoses Calculus of proximal ureter N20.1 Left flank pain R10.9
[2020-01-30] MEDS ORDERED: PIPERACILLIN/TAZOBACTAM 3.375 GM in DEXTROSE 5% 100 ML IV SCH (08:00)
[2020-01-30 08:14] LABS: BUN Creatinine Ratio 10.6 (10-20); Calcium 8.6 mg/dl (8.5-10.1); Creatinine Clr Calc Pharmacy 97.8 ml/min; Est GFR (African American) 82.9; Est GFR (Non-African American) 71.5; Potassium 3.6 mmol/L (3.5-5.1)
--- NOTE | 2020-01-30 08:39 | Emergency Department Note ---
ED Visit Note ED escrow secretary updated [facility] hospitalist service (Dariela Vela) regarding formal CT reading showing evidence of mild appendicitis. .
[2020-01-30] MEDS: FLUTICASONE PROPIONATE NA SPR 16 GM BTL SCH (09:27)
[2020-01-30] MEDS: MULTIVITAMIN TAB PO SCH (09:27)
[2020-01-30] MEDS ORDERED: PIPERACILLIN/TAZOBACTAM 4.5 GM in DEXTROSE 5% 100 ML IV ONE (09:45)
--- NOTE | 2020-01-30 10:12 | Surgery Consultation ---
Date of Consultation January 30, 2020 Assessment & Plan (1) Appendicitis: pt is a 29 year-old female who was admitted to hospital for abdominal pain, CT finding- left ureter stone, and appendicitis, 9mm. IMP: appendicitis, plan, I recommend to do laparoscopic appendectomy, possible open, D/W benefits, risks and alternatives of the surgery, the risks - infection, bleeding, abscess, injury other organs, bowel obstruction, incisional hernia, pt understood, she agrees with the surgery, I answered all questions, Present on Admission?: Yes History of Present Illness Attending Physician: Clayton Bedoya MD CHIEF COMPLAINT: Left flank pain. HISTORY OF PRESENT ILLNESS: A 29-year-old female with past medical history significant for exercise-induced bronchospasm, history of paroxysmal supraventricular tachycardia, history of alopecia, history of migraines, history of varicella without complications, generalized anxiety disorder, history of depression. The patient was recently in the hospital with sepsis and pyelonephritis, treated with Rocephin and also with Cipro, was discharged on 01/04/2020. In September of 2019, she underwent laparoscopic removal of 7 cm left adenoid dermoid cyst. In last admission and again she was found to have complex cystic mass in the left adnexa measuring 6.4 x 4.1 cm and she has followup appointment with webbing weaver on 02/05/2020. The patient has kidney stones in the past. She started having left flank pain, severe in nature, radiated to the left lower abdomen associated with nausea, which prompted her to come to the ER and imaging studies showing 8 mm stone in the proximal left ureter just beyond the left UPJ and mild left hydronephrosis. Currently, pain under control with pain medication, resting comfortably and hemodynamically stable. Denies any chest pain, no shortness of breath, no cough, no headache, no blurred vision, no earache, no runny nose, no sore throat. Currently, no nausea, no abdominal pain. Normal bowel and bladder movements. I ( Paola Penaloza MD ) got a call for consult CT finding- appendicitis, I reviewed pt's H/P, labs, CT scan with pt, pt has some lower abdominal pain for last 2 weeks, ALLERGIES: ADHESIVE TAPE, KIWI EXTRACT. PAST MEDICAL HISTORY: As mentioned above. PAST SURGICAL HISTORY: , dilatation and curettage, EGDs, exploration of the abdomen, lithotripsy, laparoscopic salpingectomy and oophorectomy, wisdom tooth extraction, throat surgery, recent laparoscopic removal of the 7 cm left adnexal dermoid cyst. MEDICATIONS: The patient currently on albuterol inhalation 2 q.i.d. p.r.n., Flonase 1 spray intranasal daily p.r.n., ibuprofen 400 mg p.o. q. 6 hours p.r.n., Linzess 145 mcg p.o. a.m., multivitamin 1 tablet daily, omeprazole 20 mg p.o. p.m., sertraline 50 mg p.o. at bedtime. FAMILY HISTORY: Significant for mother had hypertension, uncle had colon cancer. Paternal grandmother had Alzheimer's disease and diabetes. Maternal grandmother has heart disorder and diabetes. SOCIAL HISTORY: . No smoking, no alcohol, no drug use. REVIEW OF SYMPTOMS: As per HPI. Rest of review of symptoms negative. Allergies Allergy/AdvReac Type Severity Reaction Status Date / Time adhesive Allergy Mild HIVES Verified 01/29/20 23:18 kiwi Allergy Mild tongue Verified 01/29/20 23:18 feels thick and hairy nickel Allergy Mild blisters Verified 01/29/20 23:18 Home Medications Medication Instructions Recorded Confirmed Type Linzess 145 mcg PO QAM 10/04/19 01/29/20 History albuterol sulfate 1 inh INHALATION QID PRN 10/04/19 01/29/20 History omeprazole magnesium [Prilosec OTC] 20 mg PO QPM 10/27/19 01/30/20 History fluticasone propionate 1 spray INTRANASAL DAILY 01/01/20 01/29/20 History multivitamin 1 tab PO DAILY 01/01/20 01/29/20 History sertraline 50 mg PO HS 01/29/20 01/29/20 History ibuprofen 400 mg PO Q6H PRN 01/30/20 01/30/20 History Patient History Medical History Adnexal mass Alopecia Anxiety Asthma rarely uses PRN inh, ~ once per month Autoimmune disorder Annuloma granulari, 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 Still does have palpitations occasionally, feels r/t anxiety. Temporomandibular joint disorder (TMJ) Jaw does lock sometimes but just gets a little bit stuck, has to be popped back. Surgical History History of cardiac radiofrequency ablation Pt reports they did not find anything to ablate. History of section History of cystoscopy w/ stent placement History of esophagogastroduodenoscopy (EGD) History of lithotripsy x 2 History of right salpingo-oophorectomy History of tonsillectomy History of wisdom tooth extraction Family History Grandmother (Paternal) No problems noted. Grandmother (Maternal) Slow to wake up after anesthesia Diabetes Father Colon cancer Social History Smoking Status: Never smoker Second Hand Exposure: Yes; Do You Dip or Chew Tobacco: No; Tobacco Cessation Education Requested by Patient: No Hx Alcohol Use: Yes Alcohol type: wine Hx Substance Use: No Preferred Language: Portuguese Communication Ability: Effective Card Processing Clerk Required: No Beliefs That Will Affect Care: None Current Living Situation: Spouse Feels Safe at Home: Yes Assistive Devices: Glasses Review of Systems Review of Systems: All systems reviewed & are unremarkable except as noted in HPI & below Constitutional: as per Subjective / HPI Eyes: as per Subjective / HPI Ear, Nose, Mouth, Throat: as per Subjective / HPI Respiratory: as per Subjective / HPI Cardiovascular: as per Subjective / HPI Gastrointestinal: as per Subjective / HPI Genitourinary: as per Subjective / HPI kidney stone, ovary cyst Musculoskeletal: as per Subjective / HPI Integumentary: as per Subjective / HPI Neurologic: as per Subjective / HPI Psychiatric: as per Subjective / HPI anxiety Endocrine: as per Subjective / HPI GDM Hematologic / Lymphatic: as per Subjective / HPI Allergy / Immunological: as per Subjective / HPI Physical Exam Constitutional: WD/WN, vitals as above well developed and well nourished Eyes: PERRL, conjunctivae normal, anicteric sclerae ENMT: external ear and nose normal, oropharynx normal Neck: trachea midline, no thyromegaly Respiratory: normal respiratory effort, lungs clear to auscultation normal respiratory effort Cardiovascular: RRR, no murmur, no edema Rate/Rhythm: regular rate and regu lar rhythm Gastrointestinal (Abdomen): Percussion/Palpation: abdomen soft mild tenderness at RLQ and LLQ, no rebound pain, no distend, BS + Musculoskeletal: no cyanosis or clubbing, extremities motor strength 5/5 Skin: no rashes, warm and dry Neurologic: awake Psychiatric: Orientation: alert and oriented x 3 Results & Data ([facility]) Vital Signs (Past 12 Hours) Vital Signs Temp Pulse Pulse Resp BP BP BP 01/30/20 07:21 36.7 C 89 20 113/73 01/30/20 04:10 37.0 C 103 H 22 168/99 H 01/30/20 03:06 92 H 18 124/78 01/30/20 01:32 100 H 18 130/83 01/30/20 00:25 97 H 18 135/89 01/29/20 22:37 36.6 C 115 H 20 159/99 H Pulse Ox 01/30/20 07:21 95 01/30/20 04:10 96 01/30/20 03:06 96 01/30/20 01:32 95 01/30/20 00:25 96 01/29/20 22:37 98 Laboratory Results Abnormal lab results 01/29/20 01/29/20 01/29/20 Range/Units 23:10 23:10 23:45 WBC 13.87 H (4.8-10.8) K/uL MPV 10.7 H (7.4-10.4) fL Neut # (Auto) 9.21 H (1.4-6.5) K/uL [place] # (Auto) 1.17 H (0.11-0.59) K/uL Chloride (98-107) mmol/L Glucose 108 H (70-99) mg/dl AST 39 H (15-37) U/L Urine Blood 3+ H (Negative) Ur Leukocyte Esterase Trace H (Negative) Urine RBC (Auto) >30 H (0-4) /hpf U Epithel Cells (Auto) 20-30 H (0-5) /lpf 01/30/20 01/30/20 Range/Units 06:55 06:55 WBC 12.89 H (4.8-10.8) K/uL MPV 11.3 H (7.4-10.4) fL Neut # (Auto) 8.66 H (1.4-6.5) K/uL [place] # (Auto) 1.22 H (0.11-0.59) K/uL Chloride 108 H (98-107) mmol/L Glucose 100 H (70-99) mg/dl AST (15-37) U/L Urine Blood (Negative) Ur Leukocyte Esterase (Negative) Urine RBC (Auto) (0-4) /hpf U Epithel Cells (Auto) (0-5) /lpf Diagnostic Findings CT SCAN OF THE ABDOMEN AND PELVIS WITHOUT IV CONTRAST CLINICAL HISTORY: Left-sided abdominal pain. COMPARISON STUDY: Abdominal CT dated 06/15/2011. TECHNIQUE: CT scan of the abdomen and pelvis is performed from the lung bases to the proximal femora. Images are reviewed in the axial, sagittal, and coronal planes. IV contrast was not administered for this examination. A dose lowering technique was utilized adhering to the principles of ALARA. CT DOSE: 1635.33 mGy.cm FINDINGS: Lung bases: The heart is normal in size and without pericardial effusion. The lung bases are clear. Liver: The unenhanced liver is top normal in size. The liver demonstrates diminished attenuation consistent with mild steatosis. Fatty sparing is seen adjacent to gallbladder fossa. There is no intrahepatic biliary ductal dilatation. Gallbladder: Unremarkable. Spleen: Normal in size and attenuation. Pancreas: Unremarkable. Adrenal glands: Unremarkable. Kidneys: The unenhanced kidneys are normal in size. The left kidney is edematous. There is a 9 mm obstructing calculus in the left proximal ureter seen on image #231. This is located just below the ureteropelvic junction and causes [id number] left-sided hydronephrosis. Additional punctate nonobstructing calculus is seen in the left kidney. A 4 mm nonobstructing calculus is seen in the right kidney. There is no right-sided hydronephrosis. There is no evidence of contour deforming renal mass lesion. Abdominal vasculature: The abdominal aorta is normal in course and caliber. Bowel: The small bowel and colon are normal in course and caliber. The appendix is distended and fluid-filled measuring up to 10 mm in diameter as seen on image #323. The appendiceal wall is mildly thickened there is faint periappendiceal inflammation. No organized fluid collection is identified. Peritoneum: There is no intraperitoneal free air or abdominal ascites. There is a fat-containing umbilical hernia. Postoperative change is suggested in the left ventral pelvic wall. Lymphadenopathy: None. Pelvic viscera: The bladder is decompressed and grossly unremarkable. The uterus is normal as imaged. Follicles are seen in the left ovary. Skeletal structures: No lytic or blastic lesions are seen. IMPRESSION: 1. There is a 9 mm obstructing calculus in the left proximal ureter. This causes moderate left hydronephrosis. 2. Additional bilateral nonobstructing renal calculi as above. 3. Findings are consistent with mild appendicitis. 4. There is no evidence of abscess or perforation. 5. Mild hepatic steatosis.
[2020-01-30] MEDS ORDERED: cefOXitin 2,000 MG in DEXTROSE 5% 50 ML IV STA (10:19)
--- NOTE | 2020-01-30 10:19 | History & Physical Bridge Note ---
Date of Service January 30, 2020 History & Physical Bridge Note I have examined the patient, reviewed the History & Physical and in the interval since the performance of the History & Physical I have noted the following changes of clinical significance: no changes noted
[2020-01-30] MEDS: metroNIDAZOLE 500 MG/100 ML BAG IV SCH ×2 (10:58→18:44)
[2020-01-30] MEDS ORDERED: fentaNYL citrate 100 MCG/2 ML VIAL ONE ×2 (11:14→13:06)
[2020-01-30] MEDS ORDERED: MIDAZOLAM HCL 1 MG/ML 2ML VIAL ONE (11:14)
--- NOTE | 2020-01-30 11:49 | Anesthesiology Consultation ---
Date of Service January 30, 2020 Assessment & Plan (1) Encounter for pre-operative examination: Chart Review Chart Review: Acceptable Risk for Surgery and Patient NOT seen in Pre Admission Testing Consults Requested none History Surgery Operation Date: 01/30/20 11:55 Proposed Procedures p Cystoscopy, Left Retrograde Pyelogram, Left Stent Placement, Possible Laser Lithotripsy and Ureteroscopy - Shoaib Zaragoza MD s Laparoscopic Appendectomy - Paola Penaloza MD Height/Weight Height: 5 ft 7 in Weight: 105.2 kg Allergies Allergy/AdvReac Type Severity Reaction Status Date / Time adhesive Allergy Mild HIVES Verified 01/29/20 23:18 kiwi Allergy Mild tongue Verified 01/29/20 23:18 feels thick and hairy nickel Allergy Mild blisters Verified 01/29/20 23:18 Medications Home Medications Medication Instructions Recorded Confirmed Last Taken Linzess 145 mcg PO QAM 10/04/19 01/29/20 01/29/20 albuterol sulfate 1 inh INHALATION QID PRN 10/04/19 01/29/20 10/13/19 omeprazole magnesium [Prilosec OTC] 20 mg PO QPM 10/27/19 01/30/20 01/28/20 fluticasone propionate 1 spray INTRANASAL DAILY 01/01/20 01/29/20 01/28/20 multivitamin 1 tab PO DAILY 01/01/20 01/29/20 01/28/20 sertraline 50 mg PO HS 01/29/20 01/29/20 01/28/20 ibuprofen 400 mg PO Q6H PRN 01/30/20 01/30/20 01/29/20 18:00 Active Medications Generic Name Dose Route Start Last Admin Trade Name Freq PRN Reason Stop Dose Admin Fluticasone Propionate 1 sprays 01/30/20 09:00 01/30/20 09:27 Fluticasone Propionate Na Spr 16 Gm Btl NA 02/29/20 08:59 Not Given DAILY JIGNA Hydromorphone HCl 0.5 mg 01/30/20 03:25 01/30/20 10:21 Hydromorphone Inj 0.5 Mg/0.5 Ml Syr IV 02/13/20 03:24 0.5 mg Q3H PRN Administration Pain Sodium Chloride 1,000 mls @ 125 mls/hr 01/30/20 03:25 01/30/20 04:41 Nss 1000ml IV 02/29/20 03:24 125 mls/hr .Q8H JIGNA Administration Ceftriaxone Sodium 2,000 mg/ 70 mls @ 100 mls/hr 01/30/20 05:00 01/30/20 06:28 Dextrose IV 02/09/20 04:59 Infused Q24H JIGNA Infusion Protocol Metronidazole 500 mg in 100 mls @ 100 mls/hr 01/30/20 10:30 01/30/20 10:58 Flagyl IV 02/09/20 10:29 100 mls/hr Q8H JIGNA Administration Ketorolac Tromethamine 30 mg 01/30/20 05:30 01/30/20 08:22 Ketorolac 30 Mg/Ml Vial IV 02/04/20 05:29 30 mg Q6H PRN Administration Pain Miscellaneous 1 ea 01/30/20 08:00 01/30/20 09:27 Linaclotide [Linzess]: Order Awaiting Action N/A 02/29/20 07:59 Not Given QS JIGNA Multivitamins 1 tab 01/30/20 09:00 01/30/20 09:27 Multivitamin Tab PO 02/29/20 08:59 Not Given DAILY JIGNA Past Medical History Medical History Adnexal mass Alopecia Anxiety Asthma rarely uses PRN inh, ~ once per month Autoimmune disorder Annuloma granulari, 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 Still does have palpitations occasionally, feels r/t anxiety. Temporomandibular joint disorder (TMJ) Jaw does lock sometimes but just gets a little bit stuck, has to be popped back. Past Family History Family History Grandmother (Paternal) No problems noted. Grandmother (Maternal) Slow to wake up after anesthesia Diabetes Father Colon cancer Past Surgical History Surgical History History of cardiac radiofrequency ablation Pt reports they did not find anything to ablate. History of section History of cystoscopy w/ stent placement History of esophagogastroduodenoscopy (EGD) History of lithotripsy x 2 History of right salpingo-oophorectomy History of tonsillectomy History of wisdom tooth extraction Social History Smoking Status: Never smoker Do You Dip or Chew Tobacco: No Hx Alcohol Use: Yes Alcohol type: wine alcohol intake frequency: holidays/special occasions only Hx Substance Use: No substance use type: does not use Physical Exam Vital Signs Last Vital Signs Temp 36.7 C 01/30/20 07:21 Pulse 89 01/30/20 07:21 Resp 20 01/30/20 07:21 BP 113/73 01/30/20 07:21 Pulse Ox 95 01/30/20 07:21 Testing Laboratory Results 01/30/20 06:55 01/30/20 06:55 Urine Color Yellow 01/29/20 23:45 Urine Appearance Clear (Clear) 01/29/20 23:45 Urine pH 6.0 (4.5-7.5) 01/29/20 23:45 Ur Specific [place] 1.021 (1.000-1.030) 01/29/20 23:45 Urine Protein Negative (Negative) 01/29/20 23:45 Urine Glucose (UA) Negative (Negative) 01/29/20 23:45 Urine Ketones Negative (Negative) 01/29/20 23:45 Urine Nitrite Negative (Negative) 01/29/20 23:45 Ur Leukocyte Esterase Trace (Negative) H 01/29/20 23:45 Urine WBC (Auto) 1-5 /hpf (0-5) 01/29/20 23:45 Urine RBC (Auto) >30 /hpf (0-4) H 01/29/20 23:45 U Hyaline Cast (Auto) 1-5 /lpf (0-5) 01/29/20 23:45 U Epithel Cells (Auto) 20-30 /lpf (0-5) H 01/29/20 23:45 Urine Bacteria (Auto) Negative (Negative) 01/29/20 23:45 01/29/20 23:45 POC Ur Test NEG
[2020-01-30] MEDS ORDERED: fentaNYL citrate 100 MCG/2 ML VIAL IV PRN (12:04)
[2020-01-30] MEDS ORDERED: ATROPINE SULFATE 0.1 MG/ML 10ML SYR IV PRN (12:04)
[2020-01-30] MEDS ORDERED: ePHEDrine sulfate 50 MG/ML AMP IV PRN (12:04)
[2020-01-30] MEDS ORDERED: HYDROmorphone INJ 2 MG/ML SYR/VIAL IV PRN (12:04)
[2020-01-30] MEDS ORDERED: PROMETHAZINE HCL 12.5 MG in SODIUM CHLORIDE 0.9% 50 ML IV PRN (12:04)
[2020-01-30] MEDS ORDERED: LIDOCAINE HCL 1% 20 ML VIAL ONE (12:09)
[2020-01-30] MEDS ORDERED: BUPIVACAINE 0.5 % 5 MG/1 ML MPF 30ML VIAL ONE (12:09)
[2020-01-30] MEDS ORDERED: BACITRACIN OINT 15 GM TUBE ONE (12:09)
[2020-01-30] MEDS ORDERED: LIDOCAINE HCL 2% 2 ML VIAL/AMP(20MG/ML) INFIL ONE (12:34)
[2020-01-30] MEDS ORDERED: PROPOFOL IV EMULSION 10 MG/ML 20 ML VIAL IV ONE (12:34)
[2020-01-30] MEDS ORDERED: LARYING-O-JET KIT (LTA) ONE (12:34)
[2020-01-30] MEDS ORDERED: ROCURONIUM BROMIDE 10 MG/ML 5 ML VIAL IV ONE (12:34)
[2020-01-30] MEDS ORDERED: SUCCINYLCHOLINE CHLORIDE 20 MG/ML 10 ML VIAL IV ONE (12:34)
--- NOTE | 2020-01-30 12:46 | Operative Report ---
PG Post Operative Report Pre & Post Diagnosis Operation Date: 01/30/20 11:55 Procedure #1 Pre-: Left kidney stone Post: Left kidney stone I identified the patient and participated in the time-out.: Yes Procedure Operation Date: 01/30/20 11:55 Procedure #1cystoscopy, left ureteral stent placement Surgeon Rai Zaragoza MD Grain Cleaner none Estimated Blood Loss 0 Findings Consistent with Post-Op Diagnosis Specimens none Description of Procedure The patient was identified in the preoperative holding area, appropriate informed consents were reviewed and completed and the patient was transferred to the operative suite. Upon arrival, appropriate antibiotics and anesthesia were administered and the patient was placed in dorsal lithotomy position and prepped and draped in sterile fashion. To be in the case to pass a 22 Haitian cystoscope with 30 degree lens. Inspection revealed healthy appearing bladder with ureteral orifices in orthotopic position. The left UO was cannulated with a sensor wire which advanced the kidney without difficulty. I could feel very slight resistance in the proximal ureter consistent with the stone. The wire, however, navigated beyond this easily. I then placed a 6 Haitian by 24 centimeters double-J ureteral stent seeing a good curl in the kidney as well as the bladder. A Jiménez catheter was inserted in preparation for the upcoming laparoscopic appendectomy with Dr. Penaloza. She was stable throughout my procedure and there were no complications. I attest to the content of the Intraoperative Record and any orders documented therein. Any exceptions are noted below.
--- NOTE | 2020-01-30 13:03 | Fluoroscopy Report ---
FL KUB HISTORY: 29 years-old Female LT STENT STATUS post placement of a left ureteral stent COMPARISON: CT abdomen and pelvis 01/29/2020 TECHNIQUE: 3 spot fluoroscopic images of the abdomen and pelvis were obtained utilizing 2.8 seconds f luoroscopy time FINDINGS: Left-sided ureteral stent appears to be in satisfactory positioning. The previously noted calculus of the proximal left ureter is not definitively seen. IMPRESSION: Fluoroscopic assistance as above. Please see the procedural report for further details. ACT 112: Negative or not required by law. The above report was generated using voice recognition software. It may contain grammatical, syntax o r spelling errors. Electronically signed by: Rock Oneill M.D. 01/30/2020 1:02 PM
--- NOTE | 2020-01-30 13:37 | Post Operative Brief Note ---
Immediate Post Op Note v1 Date of Surgery January 30, 2020 Pre & Post Diagnosis Operation Date: 01/30/20 11:55 Pre-Op Diagnosis: Left Kidney Stone, Appendicitis Post-Op Diagnosis: Left Kidney Stone, Appendicitis I identified the patient and participated in the time-out.: Yes Procedure Operation Date: 01/30/20 11:55 Actual Procedures p Cystoscopy, Left Retrograde Pyelogram, Left Stent Placement(Left) - Shoaib Zaragoza MD s Laparoscopic Appendectomy(Not Applicable) - Paola Penaloza MD Surgeon Paola Penaloza MD Director Of Real Estate carpet cleaning technician Estimated Blood Loss 10 Findings Consistent with Post-Op Diagnosis appendicitis Fluids 1000ml Specimens appendix Drains Jiménez Catheter Anesthesia Type General Complications none Disposition Accompanied Patient To Recovery: Yes Disposition: Recovery Room Overlapping Procedure I was immediately available: during the entire case.
--- NOTE | 2020-01-30 14:24 | Anesthesiology Progress Note ---
Date of Service January 30, 2020 Anesthesia Post Procedure Vital Signs Vital Signs: Temp Pulse Pulse Pulse Resp BP BP 01/30/20 13:55 110 H 16 01/30/20 13:49 36.9 C 121 H 16 01/30/20 11:35 85 18 125/79 01/30/20 07:21 36.7 C 89 20 113/73 01/30/20 04:10 37.0 C 103 H 22 168/99 H 01/30/20 03:06 92 H 18 01/30/20 01:32 100 H 18 01/30/20 00:25 97 H 18 01/29/20 22:37 36.6 C 115 H 20 159/99 H BP Pulse Ox 01/30/20 13:55 144/81 H 96 01/30/20 13:49 146/88 H 96 01/30/20 11:35 96 01/30/20 07:21 95 01/30/20 04:10 96 01/30/20 03:06 124/78 96 01/30/20 01:32 130/83 95 01/30/20 00:25 135/89 96 01/29/20 22:37 98 Transfer of Care Handoff Completed per policy Notes Mental Status: alert / awake / arousable and participated in evaluation Patient Amnestic to Procedure: Yes Nausea / Vomiting: adequately controlled Pain: adequately controlled Airway Patency, RR, SpO2: stable & adequate BP & HR: stable & adequate Hydration State: stable & adequate Anesthetic Complications: no major complications apparent and Pt Satisfied with anesthetic care
[2020-01-30] MEDS ORDERED: oxyCODONE/ACETAMINOPHEN 5mg/325mg TAB PO PRN (14:51)
[2020-01-30] MEDS: LACTATED RINGER'S 1,000 ML IV SCH (14:51)
[2020-01-30] MEDS ORDERED: IBUPROFEN 200 MG TAB PO PRN (14:51)
[2020-01-30] MEDS ORDERED: PIPERACILLIN/TAZOBACTAM 4.5 GM in DEXTROSE 5% 100 ML IV SCH (15:00)
--- NOTE | 2020-01-30 15:30 | Electrocardiogram Report ---
Test Reason : Blood Pressure : / mmHG Vent. Rate : 080 BPM Atrial Rate : 080 BPM P-R Int : 154 ms QRS Dur : 088 ms QT Int : 352 ms P-R-T Axes : 041 028 020 degrees QTc Int : 405 ms Normal sinus rhythm Normal ECG When compared with ECG of 23-MAR-2017 00:31, No significant change was found Confirmed by Rai Porter ([id number]) on 01/30/2020 3:29:53 PM Referred By: REFERRED SELF Confirmed By:Lawson Porter
--- NOTE | 2020-01-30 17:52 | Communication Note ---
Date of Service: January 30, 2020 29-year-old female with significant past medical history of paroxysmal supraventricular tachycardia, migraine, GERD and depression was admitted early this morning with left flank pain. Found to have a left UPJ junction 8 mm stone with mild hydronephrosis and possible UTI. Following admission the radiologist called that she has mild acute appendicitis. Examination by me revealed pain and tenderness in the right lower quadrant but more on the left side. She remained hemodynamically stable without any fever and her white count was elevated to 12.89. Surgical service was consulted and she was taken to OR for emergency appendectomy. She will be seen by my colleague Dr. Hay tomorrow morning. Dr Aleksandar Bedoya
[2020-01-30] MEDS ORDERED: PANTOprazole 40 MG TAB PO SCH (21:00)
[2020-01-30] MEDS ORDERED: SERTRALINE HCL 50 MG TABLET PO SCH (21:00)
--- NOTE | 2020-01-30 22:45 | Operative Report (OR) ---
DATE OF OPERATION: 01/30/2020 PREOPERATIVE DIAGNOSIS: Appendicitis. POSTOPERATIVE DIAGNOSIS: Appendicitis. OPERATION: Laparoscopic appendectomy. SURGEON: Paola Penaloza MD. ANESTHESIA: General. ESTIMATED BLOOD LOSS: About 10 mL. FINDINGS: Appendicitis. COMPLICATIONS: None. INDICATIONS FOR THE PROCEDURE: This is a 29-year-old female who was admitted to the hospital for abdominal pain and CT scan found the patient had acute appendicitis. I recommended to do a laparoscopic appendectomy, possible open. I did talk to the patient about the benefit, the risk, alternate procedure. I indicated the risks may include but not limited such as bleeding, infection, abscess, injury to other organs, bowel obstruction, incisional hernia. The patient understands. She signed informed consent and I answered all questions. DETAILS OF PROCEDURE: We brought the patient to the OR, put the patient in the supine position. The patient received SCD on bilateral legs to prevent DVT. Also, patient received 2 gram cefoxitin IV for prophylactic antibiotic. The patient received general anesthesia without difficulty. The urology did remove the left sided ureteral stone first. Once they finished their procedure, I came to the OR. The abdomen was prepped and draped in routine sterile fashion. After timeout, I injected the local anesthesia by using 1% lidocaine mixed with 0.5% Marcaine just above the umbilicus. Then, I made small incision just above umbilicus, opened fascia, opened peritoneum under direct vision, put a Evelyn trocar in, connected to CO2 to create pneumoperitoneum. Flow rate at 6 liter per minute. Pressure not more than 14 mmHg. Once we got a nice pneumoperitoneum, we put the camera in, looked around the abdomen showing normal finding on the small bowel, large bowel; however, the appendix is enlarged about 10 mm in diameter and there are some inflammation on the appendix, so confirmed diagnosis of appendicitis and put another two 5 mm trocars on the left lower quadrant and then mobilized the appendiceal by using Harmonic, rechecked, no active bleeding. Then I used a 45 mm Endo-ESTHER staple for transection on the base of the appendix, rechecked the staple line intact. No leak, no active bleeding, and then we removed the appendix through the catch bag. Then we reinserted Evelyn trocar in, connected to CO2 to create pneumoperitoneum, again looked around the abdomen, no leak, no active bleeding on the staple line. Then we removed all trocar under direct vision. No active bleeding from the trocar sites. Pneumoperitoneum was released, then closed the umbilical incision, fascial layer by using 0 Vicryl [id number] x2, closed subcutaneous layer by using 2-0 Vicryl interruptedly, closed skin by using 4-0 Vicryl in continuous running and we closed another two 5 mm trocar site of skin only by using 4-0 Vicryl. Then, we put the dressing on. The patient tolerated the procedure well. All instrument, needle and sponge count are correct x2 at the end of the case. The patient transferred to recovery room in stable condition. Specimen sent to pathology. After the procedure, I did talk to the patient about the OR finding and the procedure we did, she understands. I attest to the content of the Intraoperative Record and any orders documented therein. Any exception s are noted below.
[2020-01-31] MEDS: PHENAZOPYRIDINE HCL 200 MG TAB PO PRN ×2 (00:50→11:21)
[2020-01-31] MEDS: metroNIDAZOLE 500 MG/100 ML BAG IV SCH ×2 (02:48→10:54)
[2020-01-31] MEDS: LACTATED RINGER'S 1,000 ML IV SCH (05:27)
[2020-01-31 06:54] LABS: Basophils # (auto) 0.01 K/uL (0-0.2); Basophils % (auto) 0.1 %; Eosinophils # (auto) 0.01 K/uL (0-0.5); Eosinophils % (auto) 0.1 %; Hematocrit (blood only) 39.6 % (37-47); Hemoglobin 13.3 g/dL (12.0-16.0); Immature Granulocytes # (auto) 0.01 K/uL (0.00-0.02); Immature Granulocytes % (auto) 0.1 %; Lymphocytes # (auto) 1.76 K/uL (1.2-3.4); Lymphocytes % (auto) 14.1 %; Mean Corpuscular Hemoglobin 30.1 pg (25-34); Mean Corpuscular Hgb Conc 33.6 g/dL (32-36); Mean Corpuscular Volume 89.6 fL (80-100); Monocytes % (auto) 7.2 %; Neutrophils # (auto) 9.75 K/uL (1.4-6.5); Neutrophils % (auto) 78.4 %; Platelet Count 204 K/uL (130-400); RDW Standard Deviation 42.5 fL (36.4-46.3); Red Blood Count 4.42 M/uL (4.2-5.4); White Blood Count 12.44 K/uL (4.8-10.8)
[2020-01-31 07:17] LABS: BUN Creatinine Ratio 7.6 (10-20); Calcium 8.6 mg/dl (8.5-10.1); Creatinine Clr Calc Pharmacy 93.3 ml/min; Est GFR (African American) 78.3; Est GFR (Non-African American) 67.6; Potassium 3.7 mmol/L (3.5-5.1)
[2020-01-31] MEDS ORDERED: POLYETHYLENE (MIRALAX) 17 GM PACK PO PRN (08:04)
--- NOTE | 2020-01-31 08:13 | Surgery Progress Note ---
Date of Service F/U S/P laparoscopic appendectomy, POD 1 doing fine, no significant abdominal pain, no nausea, no vomiting, she tolerated clear diet, January 31, 2020 Assessment & Plan (1) Appendicitis: pt is a 29 year-old female who was admitted to hospital for abdominal pain, CT finding- left ureter stone, and appendicitis, 9mm. IMP: appendicitis, plan, I recommend to do laparoscopic appendectomy, possible open, D/W benefits, risks and alternatives of the surgery, the risks - infection, bleeding, abscess, injury other organs, bowel obstruction, incisional hernia, pt understood, she agrees with the surgery, I answered all questions, 01/31/2020 8:09AM S/P laparoscopic appendectomy. pod 1 doing fine, regular diet, pt can be discharged home today from surgery point. post-op care instructions: keep the dressing on for 4 days, she can take a shower on 02/04/2020, no heavy lifting > 20 LBS for 4 weeks, F/U me 2-3 weeks, , sign off today, thanks, please call with questions, Admission and Anticipated Discharge Date Admission Date: January 30, 2020 Supervising Physician Co-Signing Physician Notes agree with above assessment - she has been seen by gen surg and will be having an appendectomy today - to avoid complications - we will limit our procedure to cystoscopy and left ureteral stent placement Review of Systems Constitutional: as per Subjective / HPI Eyes: as per Subjective / HPI Ear, Nose, Mouth, Throat: as per Subjective / HPI Respiratory: as per Subjective / HPI Cardiovascular: as per Subjective / HPI Gastrointestinal: as per Subjective / HPI Genitourinary: as per Subjective / HPI kidney stone, ovary cyst Musculoskeletal: as per Subjective / HPI Integumentary: as per Subjective / HPI Neurologic: as per Subjective / HPI Psychiatric: as per Subjective / HPI anxiety Endocrine: as per Subjective / HPI GDM Hematologic / Lymphatic: as per Subjective / HPI Allergy / Immunological: as per Subjective / HPI Physical Exam Constitutional: WD/WN, vitals as above well developed and well nourished Eyes: PERRL, conjunctivae normal, anicteric sclerae ENMT: external ear and nose normal, oropharynx normal Neck: trachea midline, no thyromegaly Respiratory: normal respiratory effort, lungs clear to auscultation normal respiratory effort Cardiovascular: RRR, no murmur, no edema Rate/Rhythm: regular rate and regular rhythm Gastrointestinal (Abdomen): Percussion/Palpation: abdomen soft mild tenderness on incision site, no rebound pain, no distend, all incisions intact, no redness, BS + Musculoskeletal: no cyanosis or clubbing, extremities motor strength 5/5 Skin: no rashes, warm and dry Neurologic: awake Psychiatric: Orientation: alert and oriented x 3 Results & Data ([facility]) Vital Signs (Past 12 Hours) Vital Signs Temp Pulse Resp BP Pulse Ox 01/31/20 07:58 37.0 C 66 18 138/85 96 01/31/20 03:23 36.7 C 83 14 115/79 95 01/30/20 23:50 37.1 C 78 17 118/76 95 01/30/20 20:44 37.3 C 100 H 18 120/79 94 Laboratory Results Abnormal lab results 01/30/20 01/31/20 01/31/20 Range/Units 06:55 06:20 06:20 WBC 12.44 H (4.8-10.8) K/uL MPV 11.0 H (7.4-10.4) fL Neut # (Auto) 9.75 H (1.4-6.5) K/uL Frio # (Auto) 0.90 H (0.11-0.59) K/uL Chloride 108 H 108 H (98-107) mmol/L BUN/Creatinine Ratio 7.6 L (10-20) Glucose 100 H 115 H (70-99) mg/dl
[2020-01-31] MEDS: MULTIVITAMIN TAB PO SCH (09:20)
[2020-01-31] MEDS: FLUTICASONE PROPIONATE NA SPR 16 GM BTL SCH (09:20)
--- NOTE | 2020-01-31 09:39 | Urology Progress Note ---
Date of Service January 31, 2020 Assessment & Plan (1) Calculus of proximal ureter: (2) Left flank pain: 29 year-old female patient, with multiple comorbidities including recent hospital admission for pyelonephritis, admitted with left flank pain and nausea/vomiting secondary to obstructing 8 mm left proximal ureteral calculus. -POD#1 cystoscopy, left ureteral stent placement in addition to laparoscopic appendectomy. -Pain has improved, now notes urinary symptoms likely related to stent. -Will check PVR to ensure she is emptying. -Urine culture pending, continue with empiric antibiotics and await culture results. -Recommend continued Pyridium, Tamsulosin, and PRN Oxybutynin for bladder spasms. Monitor for constipation with anticholinergic. -Also recommend home with at least 3 day antibiotic therapy, extending dependent on culture results. -Additional recommendations for antibiotic therapy per general surgery given recent laparoscopic appendectomy. -KUB ordered today to determine if she is candidate for outpatient ESWL. -Will plan to continue to follow while inpatient. Admission and Anticipated Discharge Date Admission Date: January 30, 2020 Subjective POD #1 cystoscopy, left ureteral stent placement with Dr. Zaragoza. Yesterday she also underwent laparoscopic appendectomy with Dr. Penaloza secondary to acute appendicitis. Patient has had improvement of left flank pain since stent placement. Does have occasional left ache in lower back. No longer experiencing nausea/vomiting. Tolerating her diet. Does report urinary frequency/urgency with some dysuria. Reports mild urinary incontinence with urgency. At times feels like her bladder is not empty. Experiencing hematuria as expected with stent. Denies fevers or chills. Has been ambulating without dizziness/lightheadedness. Using PRN Pyridium for discomfort. Chart review: Afebrile Wbc 12.44 Hgb 13.3 Creatinine 1.09 Urine culture pending, currently on Cefoxitin and Metronidazole Denies additional urologic concerns today. Review of Systems Constitutional: as per Subjective / HPI; no fever and no chills Gastrointestinal: as per Subjective / HPI; no nausea and no vomiting Genitourinary: as per Subjective / HPI Musculoskeletal: as per Subjective / HPI Neurologic: as per Subjective / HPI Physical Exam Constitutional: well developed and well nourished; no acute distress and not ill appearing Respiratory: normal respiratory effort and able to speak in complete sentences; no respiratory distress and no audible wheezes Gastrointestinal (Abdomen): Inspection/Auscultation: abdomen normal to inspection; abdomen not distended Percussion/Palpation: abdomen soft; no guarding Psychiatric: Orientation: alert, oriented x 3 and cooperative Affect: euthymic affect Genitourinary: no CVA tenderness Results & Data ([facility]) Vital Signs (Past 12 Hours) Vital Signs Temp Pulse Resp BP Pulse Ox 01/31/20 07:58 37.0 C 66 18 138/85 96 01/31/20 03:23 36.7 C 83 14 115/79 95 01/30/20 23:50 37.1 C 78 17 118/76 95 PG Care Time/CCT Total # of Minutes Spent Total Time Spent with Patient: Total time spent is greater than 50% in coordination of care (as documented) at patient's floor/unit and/or counseling patient: Coding Level of Care Code 19186 Subseq Hosp Care Lvl 2 Diagnoses Calculus of proximal ureter N20.1 Left flank pain R10.9
--- NOTE | 2020-01-31 10:23 | Hospitalist Progress Note ---
Date of Service January 31, 2020 Assessment & Plan (1) Calculus of proximal ureter: s/p left ureteral stent placement on 01/29, dysuria reported despite pyridium. Discussed case with ORACIO Alcocer who recommends adding Flomax and PRN oxybutynin. Getting scheduled for outpatient ESWL after discharge. Cont abx for 3 days. (2) Appendicitis: Advance diet and ok for dc per Gen surgery with outpatient followup. Awaiting antibiotic recommendations and all activity restrictions and other post-operative instructions. Possible dc later today pending resolution of dysuria and preliminary urine culture results. (3) Left ovarian cyst: Pt has outpatient OBGYN follow-up scheduled for Wednesday of next week. (4) History of right oophorectomy: h/o dermoid cyst in the past. (5) IBS (irritable bowel syndrome): takes Linzess for chronic constipation issues. (6) Anxiety: Cont sertraline per home regimen. (7) DVT prophylaxis: SCDs/ambulation Full Code Dispo-possible DC later this afternoon but would prefer dysuria to be resolved reliably and her prelimiary urine culture to have returned. Possible DC in am would be better. Kristin Hay DO [facility] Hospitalist Admission and Anticipated Discharge Date Admission Date: January 30, 2020 Subjective 29 yo F presented with abdominal pain, underwent lap appy on 01/29 for acute appendicitis and L ureteroscopy with stent placement for a 9mm obstructing ureteral stone. reports persistent dysuria despite starting pyridium overnight afebrile pain well managed post operatively constantly feels the need to urinate with the IVF continuously running-dc'd these now. Reviewed urine culture which is still pending. Review of Systems Review of Systems: All systems reviewed & are unremarkable except as noted in Subjective Physical Exam Physical Exam: CONSTITUTIONAL: WNWD, vitals as above, generally well- appearing EYES: normal conjunctivae, no scleral icterus ENT: external ear and nose normal, oropharynx clear, MMM RESPIRATORY: clear to auscultation bilaterally, no crackles, rales or wheezes, normal respiratory effort CARDIOVASCULAR: regular rate and rhythm, S1 and 2 heard without murmurs, gallops or rubs, no JVD, no peripheral edema GASTROINTESTINAL: normal bowel sounds, soft, nontender, nondistended, no guarding. +lap incision sites. MUSCULOSKELETAL: strength 5/5 throughout, head is normocephalic and atraumatic, neck supple, normal palpation of chest wall without tenderness SKIN: warm and dry, 3 small laparoscopic incision sites covered with gauze and min bloody drainage. NEUROLOGIC: No facial palsy, no dysarthria. CN 2-12 grossly intact, no sensory deficit, normal cognition, normal speech PSYCHIATRIC: alert cooperative and oriented to person, place and time. Results & Data Results & Data ([facility]) Vital Signs (Past 12 Hours) Vital Signs Temp Pulse Resp BP Pulse Ox 01/31/20 07:58 37.0 C 66 18 138/85 96 01/31/20 03:23 36.7 C 83 14 115/79 95 01/30/20 23:50 37.1 C 78 17 118/76 95 Laboratory Results Short CBC 01/31/20 Range/Units 06:20 WBC 12.44 H (4.8-10.8) K/uL Hgb 13.3 (12.0-16.0) g/dL Hct 39.6 (37-47) % Plt Count 204 (130-400) K/uL [facility] 01/31/20 06:20 Sodium 139 Potassium 3.7 Chloride 108 H Carbon Dioxide 26 BUN 8 Creatinine 1.09 Glucose 115 H Calcium 8.6 Medications Administered Current Inpatient Medications Acetaminophen (Acetaminophen 325 Mg Tab) 650 mg PO Q4H PRN PRN Reason: pain/fever Stop: 02/29/20 03:24 Albuterol (Albuterol Hfa 8 Gm Inhaler) 1 puffs INH QID PRN PRN Reason: Shortness Of Breath Stop: 02/29/20 03:24 Fluticasone Propionate (Fluticasone Propionate Na Spr 16 Gm Btl) 1 sprays NA DAILY JIGNA Stop: 02/29/20 08:59 Last Admin: 01/31/20 09:20 Dose: Not Given Documented by: Hydromorphone HCl (Hydromorphone Inj 0.5 Mg/0.5 Ml Syr) 0.5 mg IV Q3H PRN PRN Reason: Pain Stop: 02/13/20 03:24 Last Admin: 01/30/20 10:21 Dose: 0.5 mg Documented by: Metronidazole (Flagyl) 500 mg in 100 mls @ 100 mls/hr IV Q8H JIGNA Stop: 12/11/20 10:29 Last Infusion: 01/31/20 03:53 Dose: Infused Documented by: Cefoxitin Sodium 1,000 mg/ (Dextrose) 60 mls @ 100 mls/hr IV Q6H [facility]; Protocol Stop: 02/09/20 14:50 Last Infusion: 01/31/20 06:16 Dose: Infused Documented by: Ibuprofen (Ibuprofen 200 Mg Tab) 400 mg PO Q6H PRN PRN Reason: Pain Stop: 02/29/20 14:50 Miscellaneous (Linaclotide [Linzess]: Order Awaiting Action) 1 ea N/A QS [facility] Stop: 02/29/20 07:59 Last Admin: 01/31/20 07:47 Dose: Not Given Documented by: Multivitamins (Multivitamin Tab) 1 tab PO DAILY [facility] Stop: 02/29/20 08:59 Last Admin: 01/31/20 09:20 Dose: 1 tab Documented by: Ondansetron HCl (Ondansetron Inj 2 Mg/Ml 2 Ml Vial) 4 mg IV Q6H PRN PRN Reason: Nausea Stop: 02/29/20 03:24 Oxycodone/Acetaminophen (Oxycodone/Acetaminophen 5mg/325mg Tab) 1 tab PO Q4H PRN PRN Reason: Pain Stop: 02/13/20 14:50 Pantoprazole Sodium (Pantoprazole 40 Mg Tab) 40 mg PO QPM [facility] Stop: 02/29/20 20:59 Last Admin: 01/30/20 21:03 Dose: 40 mg Documented by: Phenazopyridine HCl (Phenazopyridine Hcl 200 Mg Tab) 200 mg PO TID PRN PRN Reason: Bladder pain Stop: 03/01/20 00:32 Last Admin: 01/31/20 00:50 Dose: 200 mg Documented by: Polyethylene Glycol (Polyethylene (Miralax) 17 Gm Pack) 17 gm PO DAILY PRN PRN Reason: Constipation Stop: 03/01/20 08:03 Sertraline HCl (Sertraline Hcl 50 Mg Tablet) 50 mg PO HS [facility] Stop: 02/29/20 20:59 Last Admin: 01/30/20 21:03 Dose: 50 mg Documented by:
[2020-01-31] MEDS ORDERED: TAMSULOSIN HCL 0.4 MG CAP PO SCH (10:30)
--- NOTE | 2020-01-31 10:30 | XRay Report ---
KUB HISTORY: Status post placement of a left ureteral stent. Left proximal ureteral stone COMPARISON: CT abdomen and pelvis 01/29/2020 FINDINGS: The bowel gas pattern is non-obstructive. There is no organomegaly. A left ureteral stent appears to be in satisfactory positioning. A 6 mm calculus projects over the proximal portion of the stent suggestive of a calculus within the renal pelvis. 4 mm right renal calculus. No pneumoperitoneu m or pneumatosis. No fracture. IMPRESSION: 1. Left ureteral stent in place with adjacent 6 mm calculus within the region of the left renal pelvi s. 2. Right nephrolithiasis. ACT 112: Negative or not required by law. The above report was generated using voice recognition software. It may contain grammatical, syntax o r spelling errors. Electronically signed by: Rock Oneill M.D. 01/31/2020 10:29 AM
--- NOTE | 2020-01-31 17:40 | Discharge Summary ---
Date of Service January 31, 2020 Admission HPI Per Admitting Provider HISTORY OF PRESENT ILLNESS: A 29-year-old female with past medical history significant for exercise-induced bronchospasm, history of paroxysmal supraventricular tachycardia, history of alopecia, history of migraines, history of varicella without complications, generalized anxiety disorder, history of depression. The patient was recently in the hospital with sepsis and pyelonephritis, treated with Rocephin and also with Cipro, was discharged on 01/04/2020. In September of 2019, she underwent laparoscopic removal of 7 cm left adenoid dermoid cyst. In last admission and again she was found to have complex cystic mass in the left adnexa measuring 6.4 x 4.1 cm and she has followup appointment with salesperson flying squad on 02/05/2020. The patient has kidney stones in the past. She started having left flank pain, severe in nature, radiated to the left lower abdomen associated with nausea, which prompted her to come to the ER and imaging studies showing 8 mm stone in the proximal left ureter just beyond the left UPJ and mild left hydronephrosis. Currently, pain under control with pain medication, resting comfortably and hemodynamically stable. Denies any chest pain, no shortness of breath, no cough, no headache, no blurred vision, no earache, no runny nose, no sore throat. Currently, no nausea, no abdominal pain. Normal bowel and bladder movements. Admission Exam Per Admitting Provider PHYSICAL EXAMINATION: GENERAL: The patient is obese, not in acute distress. VITAL SIGNS: Temperature 36.6, pulse 92, respiratory rate 18, blood pressure 124/78, oxygen 96% room air. HEENT: Pupils equal, round, reactive to light. Oral mucosa moist. NECK: Supple, no neck masses seen. CARDIOVASCULAR: S1, S2 heard, regular rate and rhythm, no murmur, no gallop. RESPIRATORY SYSTEM: Normal AP diameter. No accessory muscle use. No wheezing, no crackles. ABDOMEN: Soft, bowel sounds present. Left CVA tenderness present. Left abdominal discomfort present. No distention. CENTRAL NERVOUS SYSTEM: Cranial nerves II-XII grossly intact. Nonfocal. EXTREMITIES: No edema, no erythema. Principal Diagnosis appendicitis S/P laparoscopic appendectomy calculus of proximal ureter L ureteroscopy with stent placement Discharge Exam CONSTITUTIONAL: WNWD, vitals as above, generally well-appearing EYES: normal conjunctivae, no scleral icterus ENT: external ear and nose normal, oropharynx clear, MMM RESPIRATORY: clear to auscultation bilaterally, no crackles, rales or wheezes, normal respiratory effort CARDIOVASCULAR: regular rate and rhythm, S1 and 2 heard without murmurs, gallops or rubs, no JVD, no peripheral edema GASTROINTESTINAL: normal bowel sounds, soft, nontender, nondistended, no guarding. +laparoscopic incision sites. MUSCULOSKELETAL: strength 5/5 throughout, head is normocephalic and atraumatic, neck supple, normal palpation of chest wall without tenderness SKIN: warm and dry, 3 small laparoscopic incision sites covered with clean, dry gauze. NEUROLOGIC: No facial palsy, no dysarthria. CN 2-12 grossly intact, no sensory deficit, normal cognition, normal speech PSYCHIATRIC: alert cooperative and oriented to person, place and time. Discharge Data Allergies Allergy/AdvReac Type Severity Reaction Status Date / Time adhesive Allergy Unknown HIVES Verified 02/09/20 14:07 kiwi Allergy Unknown tongue Verified 02/09/20 14:07 feels thick and hairy nickel Allergy Unknown blisters Verified 02/09/20 14:07 Consultations 01/30/20 02:09 ED Decision to Admit Stat 01/30/20 07:56 Consult General Surgery Routine 01/30/20 08:00 Consult Urology Routine Procedures Performed Operation Date: 01/30/20 11:55 Actual Procedures p Laparoscopic Appendectomy(Not Applicable) - Paola Galicia MD s Left Stent Placement(Left) - Shoaib Zaragoza MD s Cystoscopy, Left Retrograde Pyelogram, (Left) - Shoaib Zaragoza MD Ordered Studies [facility], [phone] XRay Report Patient: IKER DAVILA Date: 01/30/20MR#: [id number]: [address] RDAcct ID:[id number]: [facility]: 1990[facility] Zip[facility] [place] [id number]: 29Location: 3WSex: FRoom/Bed: C062-1Mwf Phy: Kristin Hay, DODiagnosis: KIDNEY STONEPri Phy: Jennifer Tsai DOService Date: 01/31/20Fam Phy:Interpreting Phy: Jose Luis OneillAdmit Phy: Howard Villa ra, MD Ordering Phy: Georgie Garzon CRNP cc: ~ MEG HISTORY: Status post placement of a left ureteral stent. Left proximal ureteral stone COMPARISON: CT abdomen and pelvis 01/29/2020 FINDINGS: The bowel gas pattern is non-obstructive. There is no organomegaly. A left ureteral stent appears to be in satisfactory positioning. A 6 mm calculus projects over the proximal portion of the stent suggestive of a calculus within the renal pelvis. 4 mm right renal calculus. No pneumoperitoneum or pneumatosis. No fracture. IMPRESSION: 1. Left ureteral stent in place with adjacent 6 mm calculus within the region of the left renal pelvis. 2. Right nephrolithiasis. ACT 112: Negative or not required by law. The above report was generated using voice recognition software. It may contain grammatical, syntax or spelling errors. Electronically signed by: Rock Oneill M.D. 01/31/2020 10:29 AM Dictated: 01/31/20 1027Transcribed: 01/31/[address] [facility], [phone] CT Scan Report Patient: IKER DAVILA Date: 01/30/20#: [id number]: [address] RDAcct ID:[id number]: Date: 1990[facility] Zip: [place] [id number]: 31Location: 3WSex: FRoom/Bed: [id number] Phy: Clayton Bedoya MDDiagnosis: KIDNEY STONEPri Phy: Jennifer Tsai DOService Date: 01/29/20Fam Phy:Interpreting Phy: Freddie Coley MDAdmit Phy: Papa Villa MD Ordering Phy: Carola Song PA-C cc: ~ ADDENDUM ADDENDUM: In addition to the above findings there is a 10 mm left ovarian dermoid. This is best seen on image #361. Electronically signed by: Freddie Coley M.D. 01/30/2020 2:[address] SCAN OF THE ABDOMEN AND PELVIS WITHOUT IV CONTRAST CLINICAL HISTORY: Left-sided abdominal pain. COMPARISON STUDY: Abdominal CT dated 06/15/2011. TECHNIQUE: CT scan of the abdomen and pelvis is performed from the lung bases to the proximal femora. Images are reviewed in the axial, sagittal, and coronal planes. IV contrast was not administered for this examination. A dose lowering technique was utilized adhering to the principles of ALARA. CT DOSE: 1635.33 mGy.cm FINDINGS: Lung bases: The heart is normal in size and without pericardial effusion. The lung bases are clear. Liver: The unenhanced liver is top normal in size. The liver demonstrates diminished attenuation consistent with mild steatosis. Fatty sparing is seen adjacent to gallbladder fossa. There is no intrahepatic biliary ductal dilatation. Gallbladder: Unremarkable. Spleen: Normal in size and attenuation. Pancreas: Unremarkable. Adrenal glands: Unremarkable. Kidneys: The unenhanced kidneys are normal in size. The left kidney is edematous. There is a 9 mm obstructing calculus in the left proximal ureter seen on image #231. This is located just below the ureteropelvic junction and causes [id number] left-sided hydronephrosis. Additional punctate nonobstructing calculus is seen in the left kidney. A 4 mm nonobstructing calculus is seen in the right kidney. There is no right-sided hydronephrosis. There is no evidence of contour deforming renal mass lesion. Abdominal vasculature: The abdominal aorta is normal in course and caliber. Bowel: The small bowel and colon are normal in course and caliber. The appendix is distended and fluid-filled measuring up to 10 mm in diameter as seen on image #323. The appendiceal wall is mildly thickened there is faint periappendiceal inflammation. No organized fluid collection is identified. Peritoneum: There is no intraperitoneal free air or abdominal ascites. There is a fat-containing umbilical hernia. Postoperative change is suggested in the left ventral pelvic wall. Lymphadenopathy: None. Pelvic viscera: The bladder is decompressed and grossly unremarkable. The uterus is normal as imaged. Follicles are seen in the left ovary. Skeletal structures: No lytic or blastic lesions are seen. IMPRESSION: 1. There is a 9 mm obstructing calculus in the left proximal ureter. This causes moderate left hydronephrosis. 2. Additional bilateral nonobstructing renal calculi as above. 3. Findings are consistent with mild appendicitis. 4. There is no evidence of abscess or perforation. 5. Mild hepatic steatosis. Findings of appendicitis were called to the emergency department on 01/30/2020 at 07:28. ACT 112: Negative or not required by law. Electronically signed by: Freddie Coley M.D. 01/30/2020 7:29 AM Dictated: 01/30/20715Transcribed: 01/30/20715 Hospital Course (1) Calculus of proximal ureter: (2) Appendicitis: (3) Left ovarian cyst: 29-year-old female presented to the ER with left flank pain that was associated with nausea. Work-up revealed a 9 mm stone to the proximal left ureter just beyond the left UPJ and mild left hydronephrosis. CT abdomen pelvis also showed additional bilateral nonobstructing renal calculi and findings consistent with mild appendicitis without abscess or perforation. Mild hepatic steatosis was also noted. Urology and general surgery were consulted. The following day Dr. Zaragoza performed a cystoscopy with a left ureteral stent placement which was followed by Dr. Galicia performing a laparoscopic appendectomy. Her postoperative course was complicated by bladder spasms improved with Flomax and as needed oxybutynin. Urology recommended outpatient ESWL after discharge for definitive stone treatment. Antibiotics were continued for total of 3 days. Her diet was advanced and she was hemodynamically stable and afebrile at time of discharge, which was postop day 1. She was oxygenating well on room air, mentating and ambulating at baseline and tolerating p.o. We discussed the findings of her 10 mm left ovarian dermoid cyst and the patient reported she had an outpatient [employer] follow-up appointment scheduled for Wednesday of the following week to address this. Close primary care follow-up was recommended. Total Time Total Time Spent Total Time Spent (In Minutes): 60 Total Time Includes: Examination of the Patient, Discharge Planning, Medication Reconciliation and Communication With Other Providers Discharge Plan Discharge Items Patient Disposition: Home - Self-Care Reason For Visit: KIDNEY STONE Discharge Diagnosis: appendicitis S/P laparoscopic appendectomy calculus of proximal ureter L ureteroscopy with stent placement Condition on Discharge: Good Activity: As commented below Lifting: No more than 25 pounds Lifting Comment: 4 weeks Bathing: May shower/bathe in 3 days Sexual Activity: After two weeks Exercise/Sports: Rest today Driving/Machine Use: no driving while taking pain medicine Non-emergency contact: Surgeon Call non-emergency contact if: you have any medication questions, your symptoms worsen, your pain is not controlled and your pain is worsening Follow-up/Referrals: Jennifer Tsai DO [Primary Care Provider] - (follow up Dr. galicia 2 weeks, Agree-I have documented within the medical record.) Soniya Escalante CRNP [Nurse Practitioner] - 02/06/20 11:00 am Diet: Regular Addtl Attending Provider Instructions: keep the dressing on for 3 days Addtl [place] Line Attendant Provider Instructions: Please take all medications as instructed on discharge list below. Please followup with Urology as instructed for ESWL procedure to continue treatment of your kidney stones. Please follow-up with Dr. Galicia in [facility] General Surgery office in two weeks as instructed for post operative abdominal evaluation. Currently, your urine culture is not growing anything, so antibiotics are being recommended for a short course post operatively as a precaution. It is recommended that you follow-up with your primary care provider at the date/time above to ensure you are still doing well after discharge home, and to follow up this finalized culture result. Please follow-up with OBGYN as you are scheduled next week to investigate the ovarian growth seen on imaging previously. It was a pleasure taking care of you! Please call if you have any questions or problems. You can reach a [facility] hospitalist on duty at [facility] 24 hours a day by calling [phone]. Take care of yourself. Kristin Hay DO [facility] PLEASE NOTE: ON 02/10 THIS NOTE WAS FINALIZED AND AT THAT TIME THE MEDICATION LIST WAS INACCURATE AND NOT REFLECTIVE OF WHAT INSTRUCTIONS THE PATIENT HAD BEEN GIVEN AT TIME OF DISCHARGE. SPECIFICALLY, THERE WERE THREE NEW MEDICATIONS WHICH ARE NO LONGER INCLUDED ON THIS DOCUMENT WHICH WERE PROVIDED, INCLUDIN. Ciprofloxacin 250 mg oral every 12 hours 2. Phenazopyridine 200 mg oral 3 times a day as needed for painful urination/ bladder spasms 3. Tamsulosin 0.4 mg oral daily in the morning SMS Pending Studies at Discharge: Yes Studies:: pathology Stand-Alone Forms: [facility], Work/School Release (Inpt) Medications and DC Order Prescriptions: Continued sertraline 50 mg tablet 50 mg PO HS RF: 0 ibuprofen 200 mg Tablet 400 mg PO Q6H PRN (Reason: Pain) RF: 0 albuterol sulfate 90 mcg/actuation Hfa Aerosol Inhaler 1 inh INHALATION QID PRN (Reason: Shortness Of Breath) RF: 0 Linzess 145 mcg Capsule 145 mcg PO QAM RF: 0 omeprazole magnesium [Prilosec OTC] 20 mg Tablet,Delayed Release (Dr/Ec) 20 mg PO QPM RF: 0 fluticasone propionate 50 mcg/actuation [place],Suspension 1 spray INTRANASAL DAILY RF: 0 multivitamin Tablet 1 tab PO DAILY RF: 0 Discharge Orders: Discharge Order (Routine); Ordered 01/31/20 Ordered By: Kristin Hay Admission Data Admit Date/Time: 01/30/20 02:27 Attending Provider: Kristin Hay Admit Provider: Papa Villa Primary Care Provider: Jennifer Tsai Other Providers: Paola Galicia Christophe T. Other Interventions: Discharge Summary Assessment (RN) Last Done: 01/31/20 16:32
--- NOTE | 2020-02-12 07:21 | Coding Query ---
To promote full compliance with coding requirements relating to patient care, provider participation is requested in all cases of museum host/hostess uncertainty. Please assist us with the question(s) below: Coding Question(s): The diagnosis below was documented in the H&P and on the 02/02/20 Communication Note, then subsequently fell off all further documentation. Please indicate if it is still a possible diagnosis or ruled out. Physician's Response(s): POSSIBLE UTI ( ) Diagnosed and POA ( ) Diagnosed and not POA ( x ) Ruled out ( ) Other (please specify) MTDD
== END 2020-01-31 17:47 | disposition home or self-care (01) | DRG 660 ==
LOC: ED 22:35 → 3W 01-30 02:27 → SUATTDRO 01-30 02:27 → 3W 01-30 03:12